=== PATIENT | female | born 1995 | race American Indian/Alaskan Native ===

== ENCOUNTER 2017-05-15 06:55 | Emergency (ER) | payer MEDICAID ==
[2017-05-15] MEDS ORDERED: REGLAN IV ONE (07:04)
[2017-05-15] MEDS ORDERED: DILAUDID IV ONE (07:04)
[2017-05-15] MEDS ORDERED: NACL 0.9% 1000 ML 1,000 ML IV ONE (07:05)
[2017-05-15 07:37] LABS: Basophils % (Auto) 0.2 % (0.0-1.8); Hematocrit 29.1 % (30.3-42.9); Mean Corpuscular HGB Conc 31 % (30-34); Platelet Count 408 K/mm3 (140-440); Red Blood Count 4.36 M/mm3 (3.65-5.03); Red Cell Distribution Width 18.2 % (13.2-15.2); White Blood Count 12.5 K/mm3 (4.5-11.0)
[2017-05-15 07:56] LABS: Mean Corpuscular Hemoglobin 21 pg (28-32); Mean Corpuscular Volume 67 fl (79-97)
[2017-05-15 08:33] LABS: Alanine Aminotransferase 14 units/L (7-56); Albumin 4.5 g/dL (3.9-5); Albumin/Globulin Ratio 1.3 %; Alkaline Phosphatase 54 units/L (35-129); Anion Gap 21 mmol/L; BUN/Creatinine Ratio 22; Blood Urea Nitrogen 11 mg/dL (7-17); Calcium 8.7 mg/dL (8.4-10.2); Carbon Dioxide 22 mmol/L (22-30); Chloride 101.2 mmol/L (98-107); Glucose 105 mg/dL (65-100); Sodium 140 mmol/L (137-145)
[2017-05-15 08:42] LABS: Bilirubin,Direct < 0.2 mg/dL (0-0.2); Bilirubin,Indirect 0.1 mg/dL
--- NOTE | 2017-05-15 08:49 | Emergency Department Report ---
ED Abdominal Pain HPI - General Chief Complaint: Abdominal Pain Stated Complaint: ABD PAIN Source: patient Mode of arrival: Stretcher Limitations: No Limitations - History of Present Illness Initial Comments: Patient describes some crampy suprapubic discomfort which is now resolved that medication. She also emesis without signs of GI bleeding. This is also resolved with medication as well. She was unaware of her . She is now 3 para 2 AB 0. She's had no prior surgery. 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 MD Complaint: abdominal pain -: Gradual, hour(s) Location: suprapubic Radiation: none Migration to: no migration Severity: moderate Quality: cramping Consistency: constant, now resolved Improves With: nothing Worsens With: nothing Associated Symptoms: nausea, vomiting - Related Data Home Medications Medication Instructions Recorded Confirmed Last Taken Bismuth Subsalicylate 262 mg PO QID PRN 11/23/14 11/23/14 1 Day Ago [Pepto-Bismol] ~11/22/14 Calcium Carbonate [Tums] 1,000 mg PO BID 11/23/14 11/23/14 1 Day Ago ~11/22/14 Previous Rx's Medication Instructions Recorded Last Taken Type Ondansetron [Zofran Odt] 8 mg PO Q8HR PRN #20 tab.rapdis 11/13/14 1 Day Ago Rx ~11/22/14 Promethazine [Phenergan TAB] 25 mg PO Q6H PRN #20 tablet 11/13/14 1 Day Ago Rx ~11/22/14 Ondansetron [Zofran Odt] 4 mg PO Q6H #7 tab.rapdis 05/15/17 Unknown Rx Allergies Allergy/AdvReac Type Severity Reaction Status Date / Time latex Allergy Rash Verified 11/23/14 13:50 ED Review of Systems ROS: Stated complaint: ABD PAIN Other details as noted in HPI Constitutional: denies: chills, fever Eyes: denies: eye pain, eye discharge, vision change ENT: denies: ear pain, throat pain Respiratory: denies: cough, shortness of breath, wheezing Cardiovascular: denies: chest pain, palpitations Endocrine: no symptoms reported Gastrointestinal: abdominal pain, nausea, vomiting. denies: diarrhea Genitourinary: other (no vaginal bleeding). denies: urgency, dysuria, discharge Musculoskeletal: denies: back pain, joint swelling, arthralgia Skin: denies: rash, lesions Neurological: denies: headache, weakness, paresthesias Psychiatric: denies: anxiety, depression Hematological/Lymphatic: denies: easy bleeding, easy bruising ED Past Medical Hx - Past Medical History Previous Medical History?: Yes Hx Arthritis: Yes Additional medical history: SCOLIOSIS - Surgical History Past Surgical History?: No - Social History Smoking Status: Current Every Day Smoker Substance Use Type: None - Medications Home Medications: Home Medications Medication Instructions Recorded Confirmed Last Taken Type Ondansetron [Zofran Odt] 8 mg PO Q8HR PRN #20 tab.rapdis 11/13/14 11/23/14 1 Day Ago Rx ~11/22/14 Promethazine [Phenergan TAB] 25 mg PO Q6H PRN #20 tablet 11/13/14 11/23/14 1 Day Ago Rx ~11/22/14 Bismuth Subsalicylate 262 mg PO QID PRN 11/23/14 11/23/14 1 Day Ago History [Pepto-Bismol] ~11/22/14 Calcium Carbonate [Tums] 1,000 mg PO BID 11/23/14 11/23/14 1 Day Ago History ~11/22/14 Ondansetron [Zofran Odt] 4 mg PO Q6H #7 tab.rapdis 05/15/17 Unknown Rx ED Physical Exam - General Limitations: No Limitations General appearance: alert, in no apparent distress - Head Head exam: Present: atraumatic, normocephalic - Eye Eye exam: Present: normal appearance. Absent: scleral icterus - ENT ENT exam: Present: mucous membranes moist - Neck Neck exam: Present: normal inspection - Respiratory Respiratory exam: Present: normal lung sounds bilaterally. Absent: respiratory distress - Cardiovascular Cardiovascular Exam: Present: regular rate, normal rhythm. Absent: systolic murmur, diastolic murmur, rubs, gallop - GI/Abdominal GI/Abdominal exam: Present: soft, normal bowel sounds. Absent: distended, tenderness, guarding, rebound, rigid - Extremities Exam Extremities exam: Present: normal inspection - Back Exam Back exam: Present: normal inspection - Neurological Exam Neurological exam: Present: alert, oriented X3, CN II-XII intact. Absent: motor sensory deficit - Psychiatric Psychiatric exam: Present: normal affect, normal mood - Skin Skin exam: Present: warm, dry, intact, normal color. Absent: rash ED Course Vital Signs 05/15/17 05/15/17 05/15/17 06:47 06:56 07:00 Temperature 98.2 F Pulse Rate 82 Respiratory 16 Rate Blood Pressure 136/72 136/72 136/72 Blood Pressure 136/72 [Left] O2 Sat by Pulse 98 99 Oximetry 05/15/17 07:30 Temperature Pulse Rate Respiratory Rate Blood Pressure 142/78 Blood Pressure [Left] O2 Sat by Pulse 95 Oximetry - Reevaluation(s) Reevaluation #1: Patient's symptoms have now resolved. She is appropriate for outpatient referral and management. She will be started on vitamins and iron. She will be referred to OB. 05/15/17 11:02 ED Medical Decision Making - Lab Data Result diagrams: 05/15/17 07:04 05/15/17 07:03 Laboratory Results - last 24 hr 05/15/17 05/15/17 05/15/17 07:03 07:04 07:04 WBC 12.5 H RBC 4.36 Hgb 9.0 L Hct 29.1 L MCV 67 L MCH 21 L MCHC 31 RDW 18.2 H Plt Count 408 Lymph % (Auto) 12.5 L [place] % (Auto) 3.7 Eos % (Auto) 1.0 Baso % (Auto) 0.2 Lymph # 1.6 [place] # 0.5 Eos # 0.1 Baso # 0.0 Seg Neutrophils % 82.6 H Seg Neutrophils # 10.3 H Sodium 140 Potassium 4.0 Chloride 101.2 Carbon Dioxide 22 Anion Gap 21 BUN 11 Creatinine 0.5 L Estimated GFR > 60 BUN/Creatinine Ratio 22 Glucose 105 H Calcium 8.7 Total Bilirubin 0.30 Direct Bilirubin < 0.2 Indirect Bilirubin 0.1 AST 21 ALT 14 Alkaline Phosphatase 54 Total Protein 8.0 Albumin 4.5 Albumin/Globulin Ratio 1.3 Lipase 22 HCG, Qual 05/15/17 07:04 WBC RBC Hgb Hct MCV MCH MCHC RDW Plt Count Lymph % (Auto) [place] % (Auto) Eos % (Auto) Baso % (Auto) Lymph # [place] # Eos # Baso # Seg Neutrophils % Seg Neutrophils # Sodium Potassium Chloride Carbon Dioxide Anion Gap BUN Creatinine Estimated GFR BUN/Creatinine Ratio Glucose Calcium Total Bilirubin Direct Bilirubin Indirect Bilirubin AST ALT Alkaline Phosphatase Total Protein Albumin Albumin/Globulin Ratio Lipase HCG, Qual Positive - Radiology Data Radiology results: report reviewed interpreted by me: 6 week without well delineated pole. Small subchorionic hemorrhage. Critical care attestation.: If time is entered above; I have spent that time in minutes in the direct care of this critically ill patient, excluding procedure time. ED Disposition Clinical Impression: Hyperemesis gravidarum, First trimester Subchorionic hemorrhage Qualifiers: Fetus number: fetus 6 or greater Trimester: first trimester Qualified Code(s): O41.8X19 - Other specified disorders of amniotic fluid and membranes, first trimester, other fetus; O46.8X1 - Other antepartum hemorrhage, first trimester; O46.8X1 - Other antepartum hemorrhage, first trimester Anemia Qualifiers: Anemia type: unspecified type Qualified Code(s): D64.9 - Anemia, unspecified Disposition: 09 OP ADMIT IP TO THIS HOSP Is pt being admited?: No Does the pt Need Aspirin: No Condition: Stable Instructions: Abdominal Pain (ED), Hyperemesis Gravidarum (ED) Additional Instructions: Follow-up with OB physician is essential. You'll need a repeat ultrasound to determine whether this is progressing properly. Rx medicine for nausea and vitamins with iron Prescriptions: Ondansetron [Zofran Odt] 4 mg PO Q6H #7 tab.[email or web address] Referrals: PRIMARY CARE, [Primary Care Provider] - 3-5 Days
[2017-05-15] MEDS ORDERED: ZOFRAN ONE (10:04)
[2017-05-15] MEDS ORDERED: ZOFRAN IV ONE (10:04)
--- NOTE | 2017-05-15 10:11 | Ultrasound Report ---
Pelvic and transvaginal sonography: History: First trimester pain abdomen. Findings: Uterus measures 10 x 5.4 x 7 cm. Single intrauterine gestational sac is identified. Sac diameter 14.2 mm corresponding to 6 weeks and 2 days of gestation. No pole identified. Small subchorionic bleed. Right ovary 2.5 x 2.5 x 2.7 cm. No mass. Left ovary not visualized. Impression: Single intrauterine gestation. No pole identified.
[2017-05-15 10:31] LABS: Urine Drugs of Abuse Note Disclamer
[2017-05-15 10:53] LABS: Bilirubin,Urine NEG (Negative); Blood,Urine NEG (Negative); Ketones,Urine 20 mg/dL (Negative); Leukocyte Esterase,Urine NEG (Negative); Mucus,Urine FEW /HPF; Nitrite,Urine NEG (Negative); Protein,Urine <15 mg/dL mg/dL (Negative); Urobilinogen,Urine < 2.0 mg/dL (<2.0)
[2017-05-15 11:35] VITALS: BP 136/76
== END 2017-05-15 11:35 | disposition admitted as inpatient to this hospital (09) ==
LOC: ED 06:55
DX: O21.0 Mild hyperemesis gravidarum (principal); O41.8X19 Other specified disorders of amniotic fluid and membranes, first trimester, other fetus; O46.8X1 Other antepartum hemorrhage, first trimester; O99.011 Anemia complicating pregnancy, first trimester; Z3A.01 Less than 8 weeks gestation of pregnancy; O99.331 Smoking (tobacco) complicating pregnancy, first trimester; F17.200 Nicotine dependence, unspecified, uncomplicated; Z91.040 Latex allergy status
CPT/HCPCS: 36415; 76801; 76817; 80048; 80074; 80307; 81001; 83690; 84702; 84703; 85025; 96361; 96374; 96375; 99284; J1170; J2405; J2765; J7030

== ENCOUNTER 2017-08-15 11:24 | Emergency (ER) | payer MEDICAID ==
--- NOTE | 2017-08-15 11:44 | Emergency Department Report ---
ED General Adult HPI - General Chief complaint: Abdominal Pain Stated complaint: NAUSEA/VOMITING/ABDOMINAL PAIN Time Seen by Provider: 08/15/17 11:42 Source: patient Mode of arrival: Ambulatory Limitations: No Limitations - History of Present Illness Initial comments: Patient is a 21-year-old female 18 weeks who presents for abdominal pain. Patient states pain started a couple days ago patient states that her pain is a 10 out of 10 located in her lower abdomen. Patient denies having vaginal bleeding or any Vaginal discharge patient has no nausea no vomiting. Patient states pain is an achy type of pain that radiates to her groin nothing makes it better or worse. She says it's progressively gotten worse the last couple days. - Related Data Home Medications Medication Instructions Recorded Confirmed Last Taken Atenolol 08/15/17 Unknown Previous Rx's Medication Instructions Recorded Last Taken Type Vit Calc,Iron,Folic 1 each PO QDAY #30 tablet 05/15/17 Unknown Rx [ Vitamins] Nitrofurantoin Monohyd/M-Cryst 100 mg PO BID #14 capsule 08/15/17 Unknown Rx [Macrobid 100 mg Capsule] Allergies Allergy/AdvReac Type Severity Reaction Status Date / Time latex Allergy Rash Verified 11/23/14 13:50 ED Review of Systems ROS: Stated complaint: NAUSEA/VOMITING/ABDOMINAL PAIN Other details as noted in HPI Constitutional: denies: chills, fever Eyes: denies: eye pain, eye discharge, vision change ENT: denies: ear pain, throat pain Respiratory: denies: cough, shortness of breath, wheezing Cardiovascular: denies: chest pain, palpitations Endocrine: no symptoms reported Gastrointestinal: abdominal pain. denies: nausea, diarrhea Genitourinary: denies: urgency, dysuria, discharge Musculoskeletal: denies: back pain, joint swelling, arthralgia Skin: denies: rash, lesions Neurological: denies: headache, weakness, paresthesias Psychiatric: denies: anxiety, depression Hematological/Lymphatic: denies: easy bleeding, easy bruising ED Past Medical Hx - Past Medical History Hx Arthritis: Yes Additional medical history: SCOLIOSIS - Social History Smoking Status: Current Every Day Smoker - Medications Home Medications: Home Medications Medication Instructions Recorded Confirmed Last Taken Type Vit Calc,Iron,Folic 1 each PO QDAY #30 tablet 05/15/17 08/15/17 Unknown Rx [ Vitamins] Atenolol 08/15/17 Unknown History Nitrofurantoin Monohyd/M-Cryst 100 mg PO BID #14 capsule 08/15/17 Unknown Rx [Macrobid 100 mg Capsule] ED Physical Exam - General Limitations: No Limitations General appearance: alert, in no apparent distress - Head Head exam: Present: atraumatic, normocephalic - Eye Eye exam: Present: normal appearance - ENT ENT exam: Present: mucous membranes moist - Neck Neck exam: Present: normal inspection - Respiratory Respiratory exam: Present: normal lung sounds bilaterally. Absent: respiratory distress - Cardiovascular Cardiovascular Exam: Present: regular rate, normal rhythm. Absent: systolic murmur, diastolic murmur, rubs, gallop - GI/Abdominal GI/Abdominal exam: Present: soft, normal bowel sounds - Extremities Exam Extremities exam: Present: normal inspection - Back Exam Back exam: Present: normal inspection - Neurological Exam Neurological exam: Present: alert, oriented X3 - Psychiatric Psychiatric exam: Present: normal affect, normal mood - Skin Skin exam: Present: warm, dry, intact, normal color. Absent: rash ED Course Vital Signs 08/15/17 11:30 Temperature 98.1 F Pulse Rate 69 Respiratory 16 Rate Blood Pressure 133/71 O2 Sat by Pulse 98 Oximetry - Reevaluation(s) Reevaluation #1: 08/15/17 16:20 Patient's pain is improved ED Medical Decision Making - Lab Data Result diagrams: 08/15/17 11:40 08/15/17 11:40 Lab Results 08/15/17 08/15/17 08/15/17 Range/Units 11:40 11:40 11:40 WBC 8.7 (4.5-11.0) K/mm3 RBC 4.24 (3.65-5.03) M/mm3 Hgb 8.6 L (10.1-14.3) gm/dl Hct 28.5 L (30.3-42.9) % MCV 67 L (79-97) fl MCH 20 L (28-32) pg MCHC 30 (30-34) % RDW 19.1 H (13.2-15.2) % Plt Count 388 (140-440) K/mm3 Lymph % (Auto) 23.4 (13.4-35.0) % Reynolds % (Auto) 5.3 (0.0-7.3) % Eos % (Auto) 1.6 (0.0-4.3) % Baso % (Auto) 1.1 (0.0-1.8) % Lymph # 2.0 (1.2-5.4) K/mm3 Reynolds # 0.5 (0.0-0.8) K/mm3 Eos # 0.1 (0.0-0.4) K/mm3 Baso # 0.1 (0.0-0.1) K/mm3 Seg Neutrophils % 68.5 (40.0-70.0) % Seg Neutrophils # 6.1 (1.8-7.7) K/mm3 Sodium 135 L (137-145) mmol/L Potassium 4.5 (3.6-5.0) mmol/L Chloride 98.6 (98-107) mmol/L Carbon Dioxide 21 L (22-30) mmol/L Anion Gap 20 mmol/L BUN 5 L (7-17) mg/dL Creatinine 0.4 L (0.7-1.2) mg/dL Estimated GFR > 60 ml/min BUN/Creatinine Ratio 13 % Glucose 68 (65-100) mg/dL Calcium 8.5 (8.4-10.2) mg/dL Total Bilirubin 0.30 (0.1-1.2) mg/dL AST 16 (5-40) units/L ALT 10 (7-56) units/L Alkaline Phosphatase 69 (35-129) units/L Total Protein 7.1 (6.3-8.2) g/dL Albumin 3.6 L (3.9-5) g/dL Albumin/Globulin Ratio 1.0 % HCG, Qual Positive (Negative) Urine Color (Yellow) Urine Turbidity (Clear) Urine pH (5.0-7.0) Ur Specific Susan (1.003-1.030) Urine Protein (Negative) mg/dL Urine Glucose (UA) (Negative) mg/dL Urine Ketones (Negative) mg/dL Urine Blood (Negative) Urine Nitrite (Negative) Urine Bilirubin (Negative) Urine Urobilinogen (<2.0) mg/dL Ur Leukocyte Esterase (Negative) Urine WBC (Auto) (0.0-6.0) /HPF Urine RBC (Auto) (0.0-6.0) /HPF U Epithel Cells (Auto) (0-13.0) /HPF Urine Bacteria (Auto) (Negative) /HPF Urine Mucus /HPF Urine Yeast (Budding) /HPF 08/15/17 Range/Units 14:20 WBC (4.5-11.0) K/mm3 RBC (3.65-5.03) M/mm3 Hgb (10.1-14.3) gm/dl Hct (30.3-42.9) % MCV (79-97) fl MCH (28-32) pg MCHC (30-34) % RDW (13.2-15.2) % Plt Count (140-440) K/mm3 Lymph % (Auto) (13.4-35.0) % Reynolds % (Auto) (0.0-7.3) % Eos % (Auto) (0.0-4.3) % Baso % (Auto) (0.0-1.8) % Lymph # (1.2-5.4) K/mm3 Reynolds # (0.0-0.8) K/mm3 Eos # (0.0-0.4) K/mm3 Baso # (0.0-0.1) K/mm3 Seg Neutrophils % (40.0-70.0) % Seg Neutrophils # (1.8-7.7) K/mm3 Sodium (137-145) mmol/L Potassium (3.6-5.0) mmol/L Chloride (98-107) mmol/L Carbon Dioxide (22-30) mmol/L Anion Gap mmol/L BUN (7-17) mg/dL Creatinine (0.7-1.2) mg/dL Estimated GFR ml/min BUN/Creatinine Ratio % Glucose (65-100) mg/dL Calcium (8.4-10.2) mg/dL Total Bilirubin (0.1-1.2) mg/dL AST (5-40) units/L ALT (7-56) units/L Alkaline Phosphatase (35-129) units/L Total Protein (6.3-8.2) g/dL Albumin (3.9-5) g/dL Albumin/Globulin Ratio % HCG, Qual (Negative) Urine Color Yellow (Yellow) Urine Turbidity Clear (Clear) Urine pH 6.0 (5.0-7.0) Ur Specific Susan 1.021 (1.003-1.030) Urine Protein 30 mg/dl (Negative) mg/dL Urine Glucose (UA) Neg (Negative) mg/dL Urine Ketones Tr (Negative) mg/dL Urine Blood Neg (Negative) Urine Nitrite Pos (Negative) Urine Bilirubin Neg (Negative) Urine Urobilinogen 4.0 (<2.0) mg/dL Ur Leukocyte Esterase Tr (Negative) Urine WBC (Auto) 17.0 H (0.0-6.0) /HPF Urine RBC (Auto) 2.0 (0.0-6.0) /HPF U Epithel Cells (Auto) 1.0 (0-13.0) /HPF Urine Bacteria (Auto) 4+ (Negative) /HPF Urine Mucus 3+ /HPF Urine Yeast (Budding) 1+ /HPF - Radiology Data Radiology results: report reviewed, image reviewed OB ultrasound: Shows intrauterine at 18 weeks - Medical Decision Making Chief medical diagnosis: Urinary tract infection Differential diagnosis: demise, placental abruption, ectopic I will get an ultrasound of belly CBC, CMP oral pain medicine and oral antiemetic medication I will also get urinalysis. Discussed outpatient patient agrees with plan. Critical care attestation.: If time is entered above; I have spent that time in minutes in the direct care of this critically ill patient, excluding procedure time. ED Disposition Clinical Impression: Abdominal pain affecting UTI (urinary tract infection) Qualifiers: Urinary tract infection type: acute cystitis Hematuria presence: without hematuria Qualified Code(s): N30.00 - Acute cystitis without hematuria Disposition: DC-01 TO HOME OR SELFCARE Is pt being admited?: No Does the pt Need Aspirin: No Condition: Stable Instructions: Abdominal Pain (ED), Urinary Tract Infection in Women (ED) Prescriptions: Nitrofurantoin Monohyd/M-Cryst [Macrobid 100 mg Capsule] 100 mg PO BID #14 capsule Referrals: NAE HERNANDEZ MD [Staff Physician] - 3-5 Days
[2017-08-15] MEDS ORDERED: TYLENOL PO ONE (11:45)
[2017-08-15] MEDS ORDERED: ROXICODONE PO ONE (12:34)
[2017-08-15] MEDS ORDERED: REGLAN PO ONE (12:34)
--- NOTE | 2017-08-15 12:59 | Ultrasound Report ---
OBSTETRICAL ULTRASOUND: 08/15/17 11:45:00 CLINICAL: with abdominal pain. COMPARISON:05/15/17 Gestation: Leiva Position: Transverse with head to maternal right. Amniotic Fluid: Normal Placenta: Anterior and no previa. Placental Grade: I Heart Rate: 143 BPM Cervical length: 3.1 cm (Normal > 3 cm) Fluid seen in the stomach and bladder. No anomalies identified. However, it is too early for a anatomical survey BPD: 4.2 cm = 18 w 5 d HC: 15.0 cm = 18 w 1 d AC: 13.0 cm = 18 w 4 d FL: 2.8 cm = 18 w 5 d HC/AC Ratio: 1.15 Cephalic Index: 78.8 Estimated Weight: 248 grams Ovaries were not identified. LMP: 04/06/17 IMPRESSION: Single living intrauterine fetus at 18 weeks, 5 days based on previous ultrasound. Appropriate growth. No explanation for pain. Clinical age = 18 w 5 d EDC: 01/11/18 US Gest. Age = 18 w 4 d EDC: 01/12/18
[2017-08-15 14:45] LABS: Bacteria,Urine 4+ /HPF (Negative); Bilirubin,Urine NEG (Negative); Blood,Urine NEG (Negative); Color,Urine Yellow (Yellow); Mucus,Urine 3+ /HPF
[2017-08-15 15:16] LABS: Basophils # (Auto) 0.1 K/mm3 (0.0-0.1); Eosinophils # (Auto) 0.1 K/mm3 (0.0-0.4); Eosinophils % (Auto) 1.6 % (0.0-4.3); Monocytes # (Auto) 0.5 K/mm3 (0.0-0.8); Monocytes % (Auto) 5.3 % (0.0-7.3)
[2017-08-15 15:22] LABS: Red Blood Count 4.24 M/mm3 (3.65-5.03)
[2017-08-15 15:23] LABS: Basophils % (Auto) 1.1 % (0.0-1.8); Hematocrit 28.5 % (30.3-42.9); Hemoglobin 8.6 gm/dl (10.1-14.3); Lymphocytes % (Auto) 23.4 % (13.4-35.0); Mean Corpuscular HGB Conc 30 % (30-34); Mean Corpuscular Hemoglobin 20 pg (28-32); Mean Corpuscular Volume 67 fl (79-97); Mean Platelet Volume 8.9 fl (6-12); Platelet Count 388 K/mm3 (140-440); Red Cell Distribution Width 19.1 % (13.2-15.2)
[2017-08-15 15:30] LABS: Alanine Aminotransferase 10 units/L (7-56); Albumin 3.6 g/dL (3.9-5); BUN/Creatinine Ratio 13; Blood Urea Nitrogen 5 mg/dL (7-17); Calcium 8.5 mg/dL (8.4-10.2); Hemolysis Index 0
[2017-08-15] MEDS ORDERED: MACROBID PO ONE (15:53)
[2017-08-15 16:35] VITALS: BP 122/66
== END 2017-08-15 16:38 | disposition home or self-care (01) ==
LOC: ED 11:24
DX: O23.42 Unspecified infection of urinary tract in pregnancy, second trimester (principal); O99.332 Smoking (tobacco) complicating pregnancy, second trimester; Z3A.18 18 weeks gestation of pregnancy
CPT/HCPCS: 36415; 76805; 80053; 81001; 84703; 85025

== ENCOUNTER 2017-08-17 08:41 | Observation (INO) | payer MEDICAID ==
[2017-08-17] MEDS ORDERED: LACTATED RINGERS 500 ML IV ONE (08:50)
[2017-08-17] MEDS ORDERED: ATIVAN ONE (09:32)
[2017-08-17] MEDS ORDERED: NORMOSOL-R PH 7.4 1,000 ML IV ONE (09:33)
[2017-08-17] MEDS ORDERED: TYLENOL PO PRN ×2 (09:47→23:25)
[2017-08-17] MEDS ORDERED: BENADRYL PO PRN (09:47)
[2017-08-17] MEDS ORDERED: MILK OF MAGNESIA PO PRN (09:47)
[2017-08-17] MEDS ORDERED: DEEP SEA NS PRN (09:47)
[2017-08-17] MEDS ORDERED: AMBIEN PO PRN (09:47)
[2017-08-17] MEDS ORDERED: SODIUM CHLORIDE FLUSH SYRINGE 10 ML IV PRN (09:47)
[2017-08-17] MEDS ORDERED: COLACE PO PRN ×2 (09:47→23:25)
[2017-08-17] MEDS ORDERED: NORMOSOL-R PH 7.4 1,000 ML IV SCH (10:00)
[2017-08-17] MEDS ORDERED: PRENATAL VITAMIN PO SCH (10:00)
[2017-08-17] MEDS ORDERED: KEPPRA 1,500 MG in D5W 100 ML IV NR (10:00)
--- NOTE | 2017-08-17 10:05 | History and Physical Report ---
History of Present Illness Date of examination: 08/17/17 Date of admission: 08/17/17 Chief complaint: abdominal pain and seizure disorder History of present illness: This is a 21 yo at 24+2 weeks with hx of seizure disorder diagnosed in [facility]. Recently moved here with no care. She was seen her for n and v on Wednesday and discharged home. i was contacted by nurse moe reporting seizure activity. She reports one full term and one as she has hx of chronic HTN Past History Past Medical History: seizure Family/Genetic History: none Social history: no significant social history, single. denies: smoking, alcohol abuse, prescription drug abuse - Obstetrical History Expected Date of Delivery: 01/12/18 Actual Gestation: 18 Week(s) 6 Day(s) : 3 Para: 2 Hx # Term Pregnancies: 0 Number of Pregnancies: 0 Spontaneous Abortions: 0 Induced : 0 Number of Living Children: 0 Medications and Allergies Allergies Allergy/AdvReac Type Severity Reaction Status Date / Time latex Allergy Rash Verified 11/23/14 13:50 Home Medications Medication Instructions Recorded Confirmed Last Taken Type Vit Calc,Iron,Folic 1 each PO QDAY #30 tablet 05/15/17 08/15/17 Unknown Rx [ Vitamins] Atenolol 08/15/17 Unknown History Nitrofurantoin Monohyd/M-Cryst 100 mg PO BID #14 capsule 08/15/17 Unknown Rx [Macrobid 100 mg Capsule] Active Meds: Active Medications Levetiracetam 1,500 mg/ (Dextrose) 115 mls @ 0 mls/hr IV ONCE NR Stop: 08/17/17 13:00 Lorazepam (Ativan) 2 mg IV ONCE ONE Stop: 08/17/17 09:47 Review of Systems All systems: negative Gastrointestinal: abdominal pain Neurological: seizures - Vital Signs Vital signs: Vital Signs Temp Pulse Resp BP Pulse Ox 98.4 F 78 16 137/88 98 08/17/17 09:08 08/17/17 09:08 08/17/17 09:08 08/17/17 09:08 08/17/17 09:08 Temp Pulse Resp BP Pulse Ox 98.4 F 80 16 139/91 100 08/17/17 09:08 08/17/17 09:55 08/17/17 09:08 08/17/17 09:54 08/17/17 09:55 - Physical Exam Breasts: Positive: deferred Cardiovascular: Regular rate, Normal S1 Lungs: Positive: Clear to auscultation, Normal air movement Abdomen: Positive: soft, normal bowel sounds. Negative: distention, tenderness , guarding Genitourinary (Female): Positive: normal external genitalia, normal perenium Extremities: Positive: normal Deep Tendon Reflex Grade: Normal +2 - Obstetrical FHR: auscultation normal Results Result Diagrams: 08/17/17 10:46 08/17/17 10:37 All other labs normal. Assessment and Plan A/P IUP 24+2 weeks hx of seizure d/o currently seizing ativan 2mg stat now and Keppra 1500 mg over 30 min hx of chronic HTN US for evaluation of complete ob CBC, CMP, PIH w/u Neuology consult MFM consult close monitor
[2017-08-17 10:09] LABS: Bacteria,Urine 2+ /HPF (Negative); Bilirubin,Urine NEG (Negative); Blood,Urine NEG (Negative); Color,Urine Yellow (Yellow); Mucus,Urine 3+ /HPF; Urobilinogen,Urine < 2.0 mg/dL (<2.0)
[2017-08-17 10:14] LABS: Amphetamine Screen,Urine PRESUMPTIVE NEGATIVE; Benzodiazepines Screen,Urine PRESUMPTIVE NEGATIVE; Cocaine Screen,Urine PRESUMPTIVE NEGATIVE; Methadone Screen,Urine PRESUMPTIVE NEGATIVE; Opiate Screen,Urine PRESUMPTIVE NEGATIVE
[2017-08-17 10:28] LABS: Cannabinoid Screen,Urine PRESUMPTIVE POSITIVE
[2017-08-17] MEDS ORDERED: ATIVAN IV ONE (10:30)
[2017-08-17 11:26] LABS: Basophils % (Auto) 0.2 % (0.0-1.8); Eosinophils % (Auto) 0.1 % (0.0-4.3); Hematocrit 29.3 % (30.3-42.9); Hemoglobin 8.9 gm/dl (10.1-14.3); Lymphocytes # (Auto) 1.3 K/mm3 (1.2-5.4); Lymphocytes % (Auto) 9.8 % (13.4-35.0); Mean Corpuscular HGB Conc 30 % (30-34); Monocytes # (Auto) 0.7 K/mm3 (0.0-0.8); Monocytes % (Auto) 5.1 % (0.0-7.3); Platelet Count 419 K/mm3 (140-440); Red Blood Count 4.41 M/mm3 (3.65-5.03); Red Cell Distribution Width 19.1 % (13.2-15.2)
[2017-08-17 11:27] LABS: Mean Corpuscular Hemoglobin 20 pg (28-32); Mean Corpuscular Volume 66 fl (79-97)
[2017-08-17 11:33] LABS: Alanine Aminotransferase 15 units/L (7-56); Albumin 3.8 g/dL (3.9-5); BUN/Creatinine Ratio 20; Blood Urea Nitrogen 8 mg/dL (7-17); Calcium 9.1 mg/dL (8.4-10.2); Hemolysis Index 14
[2017-08-17] MEDS ORDERED: XYLOCAINE 1% MPF 5 mL INFILTRATI ONE (13:03)
[2017-08-17] MEDS ORDERED: ROCEPHIN IM SCH (13:15)
--- NOTE | 2017-08-17 14:13 | Ultrasound Report ---
ULTRASOUND OB LIMITED History: well being Technique: Transabdominal ultrasound with Doppler interrogation. Gestation: Single Position: Cephalic Heart Rate: 156 BPM
[2017-08-17 14:56] LABS: Rubella IgG Antibody Immune (Immune)
[2017-08-17 15:25] LABS: Hepatitis C Virus Antibody Non-Reactive (NonReactive)
[2017-08-17] MEDS ORDERED: STADOL IV PRN (15:43)
[2017-08-17] MEDS: ZOFRAN IV PRN (16:30)
[2017-08-17] MEDS ORDERED: NORMODYNE IV ONE (18:00)
[2017-08-17] MEDS: MACROBID PO SCH (22:22)
[2017-08-17] MEDS: KEPPRA 500 MG in NACL 0.9% 100 ML IV SCH (22:23)
--- NOTE | 2017-08-17 22:28 | Consultation ---
HISTORY OF PRESENT ILLNESS: This is a 22-year-old black female who presents, she is 3, para 2, with the last being 6 months ago, who recently moved here from the [place] area, has 2 living children in good health. Several months ago, she began having generalized seizures, which she states are related to her worry. Prior to being coming here from [place], she was supposed to be started on anticonvulsant medication, but this was not initiated. Since being here, she has had increased number of generalized seizures. She denies head trauma, neurological problems or any other causation for these. She denies alcohol or drug use. ALLERGIES: She has no known allergies. PHYSICAL EXAMINATION: VITAL SIGNS: She has nausea at the present time, rushing at times. She has full ocular movements. 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 Motor tone symmetrical. No seizure activity observed. Cranial nerves 2-12 are intact. Motor tone symmetrical. Sensory examination benign. IMPRESSION: Generalized seizure disorder with superimposed issue with anxiety disorder. Recommend starting the patient on anticonvulsants at 24 weeks of . Probably, the best anticonvulsant would be Keppra 500 mg by mouth two times a day and I spoke with the nurse on the floor. At this point, she be cleared to be on a diet, we would check an EEG. JOB# [id number] JOHN/YANET
[2017-08-17] MEDS: NORMODYNE PO SCH (22:37)
[2017-08-17] MEDS ORDERED: MYLICON PO PRN (23:25)
[2017-08-17] MEDS ORDERED: ALUM-MAG HYDROX-SIMETH 200-200-20MG/5ML PO PRN (23:25)
--- NOTE | 2017-08-18 08:14 | Consultation ---
REQUESTING PHYSICIAN: Deja Cole MD REASON FOR CONSULTATION: Medical management of a 21-year-old lady with seizure attack and history of seizure and also urinary tract infection. HISTORY OF PRESENT ILLNESS: The patient is a 21-year-old female who is about 18 weeks who has history of seizure disorder and had a seizure attack and was transferred from obstetrical department to medical department for treatment of seizure attack. The patient said that she takes Keppra as needed for her seizures and had seizure attack and was also found to have urinary tract infection. There is no history of fever. There is no history of shortness of breath or chest pain. There was a consult to see the patient for seizure attack and the patient will receive IV Keppra. PAST MEDICAL HISTORY: Only pertinent for seizure disorder. PAST SURGICAL HISTORY: Not well known. FAMILY HISTORY: Noncontributory. SOCIAL HISTORY: The patient does not smoke, does not drink alcohol and does not use illicit drugs. MEDICATIONS: The patient is on vitamin one tablet by mouth daily; atenolol, dose and frequency unknown and nitrofurantoin 100 mg by mouth twice daily. ALLERGIES: THE PATIENT IS ALLERGIC TO LATEX. REVIEW OF SYSTEMS: CONSTITUTIONAL: There is no fever, chills, or diaphoresis. HEENT: There is no headache or sore throat. CARDIOVASCULAR: There is no chest pain or orthopnea. RESPIRATORY: There is no shortness of breath or cough. GASTROINTESTINAL SYSTEM: There is no nausea, no vomiting, no abdominal pain, diarrhea or constipation. NEUROLOGICAL: Seizure attack noted. Change in mental status noted. There is no numbness. MUSCULOSKELETAL SYSTEM: There is no joint pain or swelling. DERMATOLOGICAL SYSTEM: There is no skin rash or itching. GENITOURINARY SYSTEM: There is no dysuria, hematuria or flank pain. Rest of system review is normal. PHYSICAL EXAMINATION: GENERAL: At the time of exam, the patient was found to be alert and oriented x 3 and not in acute distress. VITAL SIGNS: Temperature of 97.9, pulse of 64, respiration 18, blood pressure 102/60, O2 sat of 98% on room air. HEENT: Showed pupils to be equal, round, reactive to light and accommodation. Extraocular muscles are intact. NECK: Supple with no JVD or carotid bruit. CARDIOVASCULAR: Showed normal first and second heart sounds, no gallops or murmur. RESPIRATORY SYSTEM: Show good air entry on both sides of the lungs with no abnormal breath sounds. GASTROINTESTINAL SYSTEM: Show abdomen to be full, soft, nontender with no organomegaly or rigidity. NEUROLOGICAL: No deficits. MUSCULOSKELETAL SYSTEM: Show no joint swelling or tenderness. DERMATOLOGICAL SYSTEM: Show no skin rash. GENITOURINARY: Showing no costovertebral angle tenderness. PERTINENT LABORATORY DATA AND IMAGING STUDIES: The patient had CBC done on 08/17/2017 that shows elevated white count of 13,500 with low hemoglobin of 8.9 and low hematocrit of 29.3. CBC differential showed elevated segmented neutrophil of 84.8%. The patient's urinalysis showed trace leukocyte esterase with elevated urine wbc's of 19 and 42 urine nitrites with 2+ bacteria. Urine drug screen was unremarkable. The patient's serologies show nonreactive hepatitis B surface antigen and nonreactive hepatitis C antibody and nonreactive HIV infection and positive immune reaction to rubella, IgG antibody. IMAGING: The patient had obstetrical ultrasound done that concerned single gestation. DIAGNOSES: 1. Seizure attack in : 2. Urinary tract infection in . PLAN: The patient will continue Keppra 500 mg twice daily as already ordered. Neurology is already consulted by the employee wellness/fitness coordinator. The patient will also be on IV ceftriaxone 1 gram daily for treatment of UTI and we will continue Macrodantin, as shown in the patient's home medication and if satisfied by the employee wellness/fitness coordinator and the hospitalist group will follow. JOB# [id number] OCN/NTS
--- NOTE | 2017-08-18 08:25 | Progress Note ---
Assessment and Plan A: IUP at 19w1d (TAMARA 01/11/18) Seizure Disorder on Keppra Chronic HTN on Labetalol 200mg BID UTI on Ceftriaxone 1 juan daily P: Continue supportive care Await urine culture sensitivities heart tones daily Subjective - Subjective Date of service: 08/18/17 Principal diagnosis: IUP at 19 wks, Seizure Disorder, UTI, Chronic HTN, No Care Interval history: Pt reports one seizure prior to transfer yesterday, but no seizures overnight. She would like to eat regular food. She reports white vaginal discharge, but no odor, itching or vaginal bleeding. Her nausea is improving. She still reports some lower abdominal pain. Patient reports: no new complaints, no loss of fluid, no vaginal bleeding, no contractions Objective - Vital Signs Vital Signs: Vital Signs - 12hr 08/17/17 08/17/17 08/17/17 20:46 21:49 22:33 Temperature Pulse Rate 77 80 68 Respiratory Rate Blood Pressure 108/53 118/63 117/58 Blood Pressure [Left] O2 Sat by Pulse Oximetry 08/17/17 08/17/17 08/18/17 22:37 23:50 08:13 Temperature 97.9 F 98.6 F Pulse Rate 68 64 78 Respiratory 18 18 Rate Blood Pressure 117/58 109/46 Blood Pressure 102/50 [Left] O2 Sat by Pulse 98 98 Oximetry - Exam Breasts: deferred Cardiovascular: Regular rate Lungs: Clear to auscultation Abdomen: Present: soft (gravid ) Uterus: Present: normal (gravid ) Extremities: normal - Labs Labs: Abnormal Labs 08/17/17 08/17/17 08/17/17 08:25 10:37 10:46 WBC 13.5 H Hgb 8.9 L Hct 29.3 L MCV 66 L MCH 20 L RDW 19.1 H Lymph % (Auto) 9.8 L Seg Neutrophils % 84.8 H Seg Neutrophils # 11.5 H Creatinine 0.4 L Glucose 121 H Albumin 3.8 L Urine WBC (Auto) 19.0 H Laboratory Results - last 24 hr 08/17/17 08/17/17 08/17/17 08:25 08:25 10:37 WBC RBC Hgb Hct MCV MCH MCHC RDW Plt Count Lymph % (Auto) [place] % (Auto) Eos % (Auto) Baso % (Auto) Lymph # [place] # Eos # Baso # Seg Neutrophils % Seg Neutrophils # Sodium 139 Potassium 3.8 Chloride 102.4 Carbon Dioxide 24 Anion Gap 16 BUN 8 Creatinine 0.4 L Estimated GFR > 60 BUN/Creatinine Ratio 20 Glucose 121 H Calcium 9.1 Total Bilirubin 0.30 AST 19 ALT 15 Alkaline Phosphatase 68 Total Protein 7.6 Albumin 3.8 L Albumin/Globulin Ratio 1.0 Urine Color Yellow Urine Turbidity Clear Urine pH 6.0 Ur Specific [place] 1.021 Urine Protein 30 mg/dl Urine Glucose (UA) 50 Urine Ketones 80 Urine Blood Neg Urine Nitrite Pos Urine Bilirubin Neg Urine Urobilinogen < 2.0 Ur Leukocyte Esterase Tr Urine WBC (Auto) 19.0 H Urine RBC (Auto) 10.0 U Epithel Cells (Auto) 1.0 Urine Bacteria (Auto) 2+ Urine Mucus 3+ Urine Opiates Screen Presumptive negative Urine Methadone Screen Presumptive negative Ur Barbiturates Screen Presumptive negative Ur Phencyclidine Scrn Presumptive negative Ur Amphetamines Screen Presumptive negative U Benzodiazepines Scrn Presumptive negative Urine Cocaine Screen Presumptive negative U Marijuana (THC) Screen Presumptive positive Drugs of Abuse Note Disclamer Hep Bs Antigen Hepatitis C Antibody HIV 1&2 Antibody Rapid HIV P24 Antigen Rubella IgG Antibody Blood Type Antibody Screen 08/17/17 08/17/17 08/17/17 10:46 14:00 14:06 WBC 13.5 H RBC 4.41 Hgb 8.9 L Hct 29.3 L MCV 66 L MCH 20 L MCHC 30 RDW 19.1 H Plt Count 419 Lymph % (Auto) 9.8 L [place] % (Auto) 5.1 Eos % (Auto) 0.1 Baso % (Auto) 0.2 Lymph # 1.3 [place] # 0.7 Eos # 0.0 Baso # 0.0 Seg Neutrophils % 84.8 H Seg Neutrophils # 11.5 H Sodium Potassium Chloride Carbon Dioxide Anion Gap BUN Creatinine Estimated GFR BUN/Creatinine Ratio Glucose Calcium Total Bilirubin AST ALT Alkaline Phosphatase Total Protein Albumin Albumin/Globulin Ratio Urine Color Urine Turbidity Urine pH Ur Specific [place] Urine Protein Urine Glucose (UA) Urine Ketones Urine Blood Urine Nitrite Urine Bilirubin Urine Urobilinogen Ur Leukocyte Esterase Urine WBC (Auto) Urine RBC (Auto) U Epithel Cells (Auto) Urine Bacteria (Auto) Urine Mucus Urine Opiates Screen Urine Methadone Screen Ur Barbiturates Screen Ur Phencyclidine Scrn Ur Amphetamines Screen U Benzodiazepines Scrn Urine Cocaine Screen U Marijuana (THC) Screen Drugs of Abuse Note Hep Bs Antigen Hepatitis C Antibody Non-reactive HIV 1&2 Antibody Rapid HIV P24 Antigen Rubella IgG Antibody Immune Blood Type A POSITIVE Antibody Screen Negative 08/17/17 08/17/17 14:06 14:06 WBC RBC Hgb Hct MCV MCH MCHC RDW Plt Count Lymph % (Auto) [place] % (Auto) Eos % (Auto) Baso % (Auto) Lymph # [place] # Eos # Baso # Seg Neutrophils % Seg Neutrophils # Sodium Potassium Chloride Carbon Dioxide Anion Gap BUN Creatinine Estimated GFR BUN/Creatinine Ratio Glucose Calcium Total Bilirubin AST ALT Alkaline Phosphatase Total Protein Albumin Albumin/Globulin Ratio Urine Color Urine Turbidity Urine pH Ur Specific [place] Urine Protein Urine Glucose (UA) Urine Ketones Urine Blood Urine Nitrite Urine Bilirubin Urine Urobilinogen Ur Leukocyte Esterase Urine WBC (Auto) Urine RBC (Auto) U Epithel Cells (Auto) Urine Bacteria (Auto) Urine Mucus Urine Opiates Screen Urine Methadone Screen Ur Barbiturates Screen Ur Phencyclidine Scrn Ur Amphetamines Screen U Benzodiazepines Scrn Urine Cocaine Screen U Marijuana (THC) Screen Drugs of Abuse Note Hep Bs Antigen Non-reactive Hepatitis C Antibody HIV 1&2 Antibody Rapid Non react HIV P24 Antigen Non react Rubella IgG Antibody Blood Type Antibody Screen
[2017-08-18] MEDS: NORMODYNE PO SCH (09:12)
[2017-08-18] MEDS: KEPPRA 500 MG in NACL 0.9% 100 ML IV SCH ×2 (09:21)
[2017-08-18] MEDS ORDERED: CEFTRIAXONE IV SCH (10:00)
[2017-08-18] MEDS ORDERED: ROCEPHIN/NS 1 GM/50 ML 1 GM/50 ML BAG IV SCH (10:00)
[2017-08-18] MEDS ORDERED: NACL 0.9% IV SCH (10:00)
[2017-08-18] MEDS ORDERED: PRENATAL VITAMIN PO SCH (10:00)
[2017-08-18] MEDS: MACROBID PO SCH ×2 (10:13)
[2017-08-18] MEDS: ZOFRAN IV PRN (13:21)
[2017-08-18 16:04] VITALS: BP 114/54
--- NOTE | 2017-08-18 18:45 | Progress Note ---
Assessment and Plan Assessment and plan: Acute Cystitis Leukocytosis 2/2 UTI Seizure disorder Plan continue IV Ceftrixone monitor pt closely thanks for the opportunity to participate in pt's care seizure precautions at all times No driving or operation of heavy machinery for 6 months of being seizure free. 25 mins History Interval history: Pt seen and exam, c/o mild nausea, no vomiting, No other problems. Per pt, reportedly diagnosed with seizures few months ago, but did not wait for her results and medications. Hospitalist Physical - Constitutional Vitals: Temp Pulse Resp BP Pulse Ox 98.7 F 83 18 114/54 100 08/18/17 15:20 08/18/17 15:20 08/18/17 15:20 08/18/17 15:20 08/18/17 15:20 General appearance: Present: no acute distress, well-nourished - EENT Eyes: Present: PERRL, EOM intact ENT: hearing intact, clear oral mucosa - Neck Neck: Present: supple, normal ROM - Respiratory Respiratory effort: normal Respiratory: bilateral: CTA - Cardiovascular Rhythm: regular Heart Sounds: Present: S1 & S2 - Extremities Extremities: no ischemia, pulses intact, No edema Peripheral Pulses: within normal limits - Abdominal General gastrointestinal: soft, non-tender, normal bowel sounds - Integumentary Integumentary: Present: clear, warm, dry - Psychiatric Psychiatric: appropriate mood/affect, intact judgment & insight, memory intact - Neurologic Neurologic: CNII-XII intact, moves all extremities - Allied Health Allied health notes reviewed: nursing, social work Results - Labs CBC & Chem 7: 08/17/17 10:46 08/17/17 10:37 Labs: Laboratory Last Values WBC 13.5 K/mm3 (4.5-11.0) H 08/17/17 10:46 RBC 4.41 M/mm3 (3.65-5.03) 08/17/17 10:46 Hgb 8.9 gm/dl (10.1-14.3) L 08/17/17 10:46 Hct 29.3 % (30.3-42.9) L 08/17/17 10:46 MCV 66 fl (79-97) L 08/17/17 10:46 MCH 20 pg (28-32) L 08/17/17 10:46 MCHC 30 % (30-34) 08/17/17 10:46 RDW 19.1 % (13.2-15.2) H 08/17/17 10:46 Plt Count 419 K/mm3 (140-440) 08/17/17 10:46 Lymph % (Auto) 9.8 % (13.4-35.0) L 08/17/17 10:46 [place] % (Auto) 5.1 % (0.0-7.3) 08/17/17 10:46 Eos % (Auto) 0.1 % (0.0-4.3) 08/17/17 10:46 Baso % (Auto) 0.2 % (0.0-1.8) 08/17/17 10:46 Lymph # 1.3 K/mm3 (1.2-5.4) 08/17/17 10:46 [place] # 0.7 K/mm3 (0.0-0.8) 08/17/17 10:46 Eos # 0.0 K/mm3 (0.0-0.4) 08/17/17 10:46 Baso # 0.0 K/mm3 (0.0-0.1) 08/17/17 10:46 Seg Neutrophils % 84.8 % (40.0-70.0) H 08/17/17 10:46 Seg Neutrophils # 11.5 K/mm3 (1.8-7.7) H 08/17/17 10:46 Sodium 139 mmol/L (137-145) 08/17/17 10:37 Potassium 3.8 mmol/L (3.6-5.0) 08/17/17 10:37 Chloride 102.4 mmol/L (98-107) 08/17/17 10:37 Carbon Dioxide 24 mmol/L (22-30) 08/17/17 10:37 Anion Gap 16 mmol/L 08/17/17 10:37 BUN 8 mg/dL (7-17) 08/17/17 10:37 Creatinine 0.4 mg/dL (0.7-1.2) L 08/17/17 10:37 Estimated GFR > 60 ml/min 08/17/17 10:37 BUN/Creatinine Ratio 20 % 08/17/17 10:37 Glucose 121 mg/dL (65-100) H 08/17/17 10:37 Calcium 9.1 mg/dL (8.4-10.2) 08/17/17 10:37 Total Bilirubin 0.30 mg/dL (0.1-1.2) 08/17/17 10:37 AST 19 units/L (5-40) 08/17/17 10:37 ALT 15 units/L (7-56) 08/17/17 10:37 Alkaline Phosphatase 68 units/L (35-129) 08/17/17 10:37 Total Protein 7.6 g/dL (6.3-8.2) 08/17/17 10:37 Albumin 3.8 g/dL (3.9-5) L 08/17/17 10:37 Albumin/Globulin Ratio 1.0 % 08/17/17 10:37 Urine Color Yellow (Yellow) 08/17/17 08:25 Urine Turbidity Clear (Clear) 08/17/17 08:25 Urine pH 6.0 (5.0-7.0) 08/17/17 08:25 Ur Specific [place] 1.021 (1.003-1.030) 08/17/17 08:25 Urine Protein 30 mg/dl mg/dL (Negative) 08/17/17 08:25 Urine Glucose (UA) 50 mg/dL (Negative) 08/17/17 08:25 Urine Ketones 80 mg/dL (Negative) 08/17/17 08:25 Urine Blood Neg (Negative) 08/17/17 08:25 Urine Nitrite Pos (Negative) 08/17/17 08:25 Urine Bilirubin Neg (Negative) 08/17/17 08:25 Urine Urobilinogen < 2.0 mg/dL (<2.0) 08/17/17 08:25 Ur Leukocyte Esterase Tr (Negative) 08/17/17 08:25 Urine WBC (Auto) 19.0 /HPF (0.0-6.0) H 08/17/17 08:25 Urine RBC (Auto) 10.0 /HPF (0.0-6.0) 08/17/17 08:25 U Epithel Cells (Auto) 1.0 /HPF (0-13.0) 08/17/17 08:25 Urine Bacteria (Auto) 2+ /HPF (Negative) 08/17/17 08:25 Urine Mucus 3+ /HPF 08/17/17 08:25 Urine Total Volume 550 08/17/17 15:45 Urine Total Protein 29 mg/dL (5-11.8) H 08/17/17 15:45 Urine Opiates Screen Presumptive negative 08/17/17 08:25 Urine Methadone Screen Presumptive negative 08/17/17 08:25 Ur Barbiturates Screen Presumptive negative 08/17/17 08:25 Ur Phencyclidine Scrn Presumptive negative 08/17/17 08:25 Ur Amphetamines Screen Presumptive negative 08/17/17 08:25 U Benzodiazepines Scrn Presumptive negative 08/17/17 08:25 Urine Cocaine Screen Presumptive negative 08/17/17 08:25 U Marijuana (THC) Screen Presumptive positive 08/17/17 08:25 Drugs of Abuse Note Disclamer 08/17/17 08:25 RPR Nonreactive (Nonreactive) 08/17/17 14:06 Hep Bs Antigen Non-reactive (Negative) 08/17/17 14:06 Hepatitis C Antibody Non-reactive (NonReactive) 08/17/17 14:06 HIV 1&2 Antibody Rapid Non react (Non React) 08/17/17 14:06 HIV P24 Antigen Non react (Non React) 08/17/17 14:06 Rubella IgG Antibody Immune (Immune) 08/17/17 14:06 Blood Type A POSITIVE 08/17/17 14:00 Antibody Screen Negative 08/17/17 14:00
[2017-08-18] MEDS ORDERED: KEPPRA PO SCH (22:00)
== END 2017-08-18 18:30 | disposition left against medical advice (07) ==
LOC: TRG 08:41 → LD 10:16 → 3A 23:14
PROVIDERS: ADMIT Obstetrics & Gynecology; ATTEND Obstetrics & Gynecology
DX: O99.352 Diseases of the nervous system complicating pregnancy, second trimester (principal); G40.909 Epilepsy, unspecified, not intractable, without status epilepticus; O10.012 Pre-existing essential hypertension complicating pregnancy, second trimester; O23.42 Unspecified infection of urinary tract in pregnancy, second trimester; O23.12 Infections of bladder in pregnancy, second trimester; O99.112 Other diseases of the blood and blood-forming organs and certain disorders involving the immune mechanism complicating pregnancy, second trimester; D72.829 Elevated white blood cell count, unspecified; O26.892 Other specified pregnancy related conditions, second trimester; R10.9 Unspecified abdominal pain; Z3A.19 19 weeks gestation of pregnancy
CPT/HCPCS: 36415; 76815; 80053; 80307; 81001; 84156; 85025; 86592; 86706; 86762; 86803; 86850; 86900; 86901; 87076; 87086; 87186; 87806; 96361; 96372; 96374; 96375; 96376; G0378; J0595; J0696; J1953; J2060; J2405; J7050

== ENCOUNTER 2017-09-20 11:37 | Outpatient (CLI) | payer MEDICAID ==
[2017-09-20] MEDS ORDERED: LACTATED RINGERS 500 ML IV ONE (11:47)
[2017-09-20] MEDS: BRETHINE IVP NR ×2 (12:41→13:07)
[2017-09-20 12:49] LABS: Bilirubin,Urine NEG (Negative); Blood,Urine NEG (Negative); Color,Urine Yellow (Yellow); Mucus,Urine 2+ /HPF
== END 2017-09-20 13:48 | disposition home or self-care (01) ==
LOC: TRG 11:37
PROVIDERS: ATTEND Obstetrics & Gynecology
DX: O47.02 False labor before 37 completed weeks of gestation, second trimester (principal); Z3A.24 24 weeks gestation of pregnancy
CPT/HCPCS: 59025; 81001; 96360; 96372; J3105; J7120

== ENCOUNTER 2017-09-20 21:47 | Observation (INO) | payer OTHER ==
[2017-09-20] MEDS ORDERED: LACTATED RINGERS 500 ML IV ONE (22:05)
[2017-09-20 22:29] LABS: Amphetamine Screen,Urine PRESUMPTIVE NEGATIVE; Benzodiazepines Screen,Urine PRESUMPTIVE NEGATIVE; Cocaine Screen,Urine PRESUMPTIVE NEGATIVE; Methadone Screen,Urine PRESUMPTIVE NEGATIVE; Opiate Screen,Urine PRESUMPTIVE NEGATIVE
[2017-09-20 22:44] LABS: Cannabinoid Screen,Urine PRESUMPTIVE POSITIVE
[2017-09-20] MEDS ORDERED: ATIVAN IV ONE (23:07)
[2017-09-20] MEDS: LACTATED RINGERS 1,000 ML IV SCH (23:25)
[2017-09-21 00:44] LABS: Alanine Aminotransferase 11 units/L (7-56); Albumin 3.8 g/dL (3.9-5); BUN/Creatinine Ratio 20; Blood Urea Nitrogen 6 mg/dL (7-17); Calcium 8.7 mg/dL (8.4-10.2); Hemolysis Index 0
[2017-09-21 01:18] LABS: Hematocrit 26.3 % (30.3-42.9); Hemoglobin 7.9 gm/dl (10.1-14.3); Mean Corpuscular HGB Conc 30 % (30-34); Mean Corpuscular Hemoglobin 20 pg (28-32); Mean Corpuscular Volume 66 fl (79-97); Platelet Count 312 K/mm3 (140-440); Red Blood Count 3.98 M/mm3 (3.65-5.03); Red Cell Distribution Width 18.6 % (13.2-15.2)
[2017-09-21] MEDS: NORMODYNE PO SCH ×3 (02:32→22:36)
[2017-09-21] MEDS: ZOFRAN IV PRN ×3 (02:32→22:37)
[2017-09-21 02:33] LABS: Bilirubin,Urine NEG (Negative); Blood,Urine NEG (Negative); Color,Urine Yellow (Yellow); Mucus,Urine FEW /HPF; Protein,Urine <15 mg/dL mg/dL (Negative); Urobilinogen,Urine < 2.0 mg/dL (<2.0)
[2017-09-21] MEDS ORDERED: PERCOCET 5/325 PO PRN (04:27)
[2017-09-21] MEDS: LACTATED RINGERS 1,000 ML IV SCH ×2 (08:21→18:44)
--- NOTE | 2017-09-21 09:06 | History and Physical Report ---
History of Present Illness Date of examination: 09/21/17 Date of admission: 09/20/17 23:30 Chief complaint: nausea and vomiting History of present illness: 22y/o @ 24+0 weeks presents with the complaint of nausea and lower abdominal pain. She denies vaginal bleeding or leakage of fluid. The patient has a known history of a seizure disorder. She admits to not taking her Keppra. She is not receiving care while in [place]. UDS +THC. Past History Past Medical History: asthma, hypertension, seizure Past Surgical History: no surgical history Social history: single, smoking - Obstetrical History Expected Date of Delivery: 01/11/18 Actual Gestation: 24 Week(s) 0 Day(s) : 4 Para: 2 Hx # Term Pregnancies: 1 Number of Pregnancies: 1 Spontaneous Abortions: 1 Induced : 0 Number of Living Children: 2 Medications and Allergies Allergies Allergy/AdvReac Type Severity Reaction Status Date / Time latex Allergy Rash Verified 11/23/14 13:50 Home Medications Medication Instructions Recorded Confirmed Last Taken Type Labetalol [Normodyne TAB] 100 mg PO BID 09/20/17 09/21/17 09/20/17 09:00 History Active Meds: Active Medications Lactated Ringer's (Lactated Ringers) 1,000 mls @ 125 mls/hr IV DIRECT JANY Last Admin: 09/21/17 08:21 Dose: 125 mls/hr Labetalol HCl (Normodyne) 100 mg PO BID [facility] Last Admin: 09/21/17 02:32 Dose: 100 mg Ondansetron HCl (Zofran) 8 mg IV Q8H PRN PRN Reason: Nausea Last Admin: 09/21/17 02:32 Dose: 8 mg Oxycodone/Acetaminophen (Percocet 5/325) 1 tab PO Q4H PRN PRN Reason: Pain, Moderate (4-6) Last Admin: 09/21/17 04:44 Dose: 1 tab Review of Systems All systems: negative Constitutional: lethargy Genitourinary: pelvic pain, no vaginal bleeding, no leakage of fluid - Vital Signs Vital signs: Vital Signs Temp Pulse Resp BP Pulse Ox 97.3 F L 89 18 134/78 99 09/20/17 22:13 09/20/17 22:13 09/20/17 22:13 09/20/17 22:13 09/20/17 22:13 Temp Pulse Resp BP Pulse Ox 97.6 F 88 18 137/84 99 09/21/17 03:26 09/21/17 03:26 09/21/17 04:44 09/21/17 03:26 09/21/17 03:26 - Physical Exam Breasts: Positive: deferred Cardiovascular: Regular rate Lungs: Positive: Clear to auscultation Abdomen: Positive: normal appearance Results Result Diagrams: 09/20/17 23:00 09/20/17 23:00 Abnormal lab results 09/20/17 09/20/17 Range/Units 23:00 23:00 Hgb 7.9 L (10.1-14.3) gm/dl Hct 26.3 L (30.3-42.9) % MCV 66 L (79-97) fl MCH 20 L (28-32) pg RDW 18.6 H (13.2-15.2) % Carbon Dioxide 20 L (22-30) mmol/L BUN 6 L (7-17) mg/dL Creatinine 0.3 L (0.7-1.2) mg/dL Glucose 124 H (65-100) mg/dL Albumin 3.8 L (3.9-5) g/dL All other labs normal. Assessment and Plan - Patient Problems (1) Abdominal pain affecting Current Visit: Yes Status: Acute Plan to address problem: restart Keppra continue IV hydration and slowly advance diet as tolerated obtain OB ultrasound (2) Seizure disorder during Current Visit: Yes Status: Acute (3) Nausea and vomiting Current Visit: No Status: Acute
[2017-09-21] MEDS ORDERED: KEPPRA 1,000 MG in NACL 0.9% 100 ML IV ONE (12:00)
[2017-09-21] MEDS: REGLAN IV PRN ×2 (12:11→18:50)
--- NOTE | 2017-09-21 15:15 | Consultation ---
History of Present Illness Consult date: 09/21/17 Requesting physician: RONNIE ROCHE Reason for Consult: seizure disorder Chief complaint: seizure disorder History of present illness: This 22-year-old right-handed -Tristanian female says she's had seizures since age 7 and was on Keppra back then which she recalls made her sleepy. She gets lightheaded prior to seizures which consist of stiffening, foaming at the mouth as witnessed today and sometimes wetting herself but without tongue biting or lip or cheek biting. She was seen here at end of July for similar seizure by Dr. Gallardo who recommended starting her on Keppra once she reached 24 weeks gestation but she has not been placed on Keppra until I did today. She states she had 3 seizures in July and 2 or 3 in August but seems to be counting today's spells during examination as being in August because she thinks today is September 20. She takes labetalol 100 mg twice a day, vitamins daily and uses an albuterol inhaler for asthma. Past History Past Medical History: hypertension, seizures, other (asthma) Past Surgical History: No surgical history Social history: single, smoking (3 cigarettes per day), other (was using marijuana daily until at which time she stopped. Rare alcohol prior to . Was working as a hemodialysis patient care specialist.). denies: alcohol abuse, prescription drug abuse, IV drug use Medications and Allergies Allergies Allergy/AdvReac Type Severity Reaction Status Date / Time latex Allergy Rash Verified 11/23/14 13:50 Home Medications Medication Instructions Recorded Confirmed Last Taken Type Labetalol [Normodyne TAB] 100 mg PO BID 09/20/17 09/21/17 09/20/17 09:00 History Active Meds: Active Medications Lactated Ringer's (Lactated Ringers) 1,000 mls @ 125 mls/hr IV DIRECT JANY Last Admin: 09/21/17 08:21 Dose: 125 mls/hr Labetalol HCl (Normodyne) 100 mg PO BID JANY Last Admin: 09/21/17 10:19 Dose: 100 mg Levetiracetam (Keppra) 750 mg PO BID JANY Metoclopramide HCl (Reglan) 10 mg IV Q6H PRN PRN Reason: Nausea And Vomiting Last Admin: 09/21/17 12:11 Dose: 10 mg Ondansetron HCl (Zofran) 8 mg IV Q8H PRN PRN Reason: Nausea Last Admin: 09/21/17 10:15 Dose: 8 mg Review of Systems All systems: negative (frontal headaches at times with nausea and photophobia. Gets lightheaded prior to seizures. No snoring. Sometimes forgets where she is associated with the seizures.) Physical Examination - Vital Signs Vital Signs: Vital Signs Temp Pulse Resp BP Pulse Ox 97.3 F L 89 18 134/78 99 09/20/17 22:13 09/20/17 22:13 09/20/17 22:13 09/20/17 22:13 09/20/17 22:13 - Physical Exam Narrative exam: General Appearance: well developed well nourished (per BMI) mid 20s - Tristanian female in NAD but then has several spells resembling generalized tonic- clonic seizures but wakes up promptly without any apparent postictal change from the 2 episodes witnessed. Was foaming at the mouth and then throughout both times but was already nauseated prior to the episodes. Did not respond to gently squeezing her nose tickling at but toes were downgoing during the seizures and eyes were closed suggesting psychogenic spells. Was moaning and crying during early portion of spell then yelling for her mother and wanting to take out IV, trying to get out of bed. HEENT: atraumatic, normocephalic; no bruits, 2+ Ehsan without soreness or induration or enlargement, sclerae nonicteric. Oropharynx pink and moist. Neck: supple, no bruits. Heart: II/ systolic ejection murmur at the base (was unaware of this) but no other extra sounds. Extremities: no clubbing, cyanosis or edema. 2+ posterior tibial pulses bilaterally. Neurologic Exam: Mental Status: Awake, alert, oriented to 09/20/2017 but thinks it is Wednesday, knows she is at a hospital but not the name, speech is clear, names pen and point of pen, and abstracts well. Names President but not Porcelain Waxer, serial 7's are somewhat poor but gets 5+7 = 12, refuses to do the right-left task, could not do the 3 of 3 objects tasks since she had an episode during the middle of it, refuses to spell WORLD backwards. Cranial Nerves: archer full, no papilledema, SVPs present, PERRLA, EOMs full without nystagmus or diplopia, facial sensation intact to pinprick, no facial weakness, [place] is midline, palate rises symmetrically to phonation, shoulder shrug is 4- X 2 with poor effort, tongue protrudes midline. Cerebellar: Refuses to do finger to nose but heel to araya is intact bilaterally. Sensory: intact to light touch, pinprick, and vibrations. Cannot cooperate for double simultaneous stimulation. Motor Exam Upper Extremities: Will not raise his arms off the bed. Will not cooperate for rapid alternating movements. Collateral Specialist are 3+ X 2 with poor effort, tone is normal. No atrophy or fasciculations are noted visually. Motor Exam Lower Extremities: Poor effort on lifting legs but no leg lag, quadriceps are 2 with poor effort and anterior tibials and gastrocnemius are 3+ right and 3- left with poor effort. Will not do Polly. Tone is normal. No atrophy or fasciculations are noted visually. Reflexes: Palmomental and snout are negative but jaw jerk is slightly positive. Triceps, biceps and brachioradialis are 2 bilaterally. Jcarlos's is negative bilaterally. Knee jerks and ankle jerks are 2 bilaterally without clonus. Toes are downgoing bilaterally to Babinski testing done during these spells. Results - Laboratory Findings CBC and BMP: 09/20/17 23:00 09/20/17 23:00 Abnormal Lab Findings: Abnormal Labs 09/20/17 09/20/17 23:00 23:00 Hgb 7.9 L Hct 26.3 L MCV 66 L MCH 20 L RDW 18.6 H Carbon Dioxide 20 L BUN 6 L Creatinine 0.3 L Glucose 124 H Albumin 3.8 L Assessment and Plan Impression: 1. Psychogenic spells 2. Common migraine, nonintractable Plan: 1. Ordered prolactin, drawn at 20 min after a spell, level is pending. If elevated would support real seizures. 2. Ordered levetiracetam in case spells are real. Will change to extended release to lessen side effects. 3. EEG about to be done. 4. Spoke to Dr. Lee who will try to arrange a sitter since she tried to get out of bed during spells and she will order a Psychiatry consult. 45 min spent including management of two episodes. Did not order Ativan since did not seem real. Thank you for an interesting consultation in my area of subspecialty (epilepsy) on this mid 20s lady. Will read EEG and provide a preliminary report.
[2017-09-21] MEDS: KEPPRA PO SCH (18:46)
--- NOTE | 2017-09-21 20:45 | Electroencephalogram Report ---
Electroencephalogram EEG Date of exam: 09/21/17 Description: The waking background shows an appropriate organization with well-defined anterior posterior voltage and frequency gradients. Posteriorly, there is a well -developed alpha rhythm of 9 Hz which is symmetrical and bilaterally reactive. Anteriorly, there is a pattern of lower voltage and slightly irregular theta and beta range frequencies. Some slowing is seen with drowsiness. K complexes of sleep are seen. No epileptiform activity. Interpretation: Preliminary reading: Normal wake/sleep EEG.
[2017-09-21] MEDS ORDERED: KEPPRA PO SCH (22:00)
[2017-09-22] MEDS: REGLAN IV PRN ×4 (01:23→23:19)
--- NOTE | 2017-09-22 03:58 | Ultrasound Report ---
FINAL REPORT EXAM: US OB > = 14 WEEKS FETUS HISTORY: abdominal pain TECHNIQUE: Routine transabdominal imaging was obtained of the pelvis including Doppler interrogation of the uterus. FINDINGS: There is a single viable intrauterine with an estimated gestational age of 24 weeks 4 days based on sonographic criteria. The fetus is in cephalic presentation. The heart rate is 162 BPM. The amniotic fluid index is 19.7 which is normal. The placenta is anterior and right of midline. It is grade 0. There are no gross anomalies involving the choroid plexus, cisterna magna, cerebellum, lateral ventricles, stomach, kidneys, bladder, diaphragm, four-chamber reveal heart, heart, three-vessel cord or umbilical cord insertion. The entire spine is not seen because of difficulties in positioning. The indices and ratios are all within normal range. The estimated weight is 721 grams. The cervix is closed and measures 5 cm in length. IMPRESSION: Single viable IUP, 24 weeks 4 days. Cephalic presentation. The heart rate is 162 BPM.
[2017-09-22] MEDS: ZOFRAN IV PRN ×2 (06:45→14:42)
--- NOTE | 2017-09-22 07:37 | Progress Note ---
Assessment and Plan - Patient Problems (1) Abdominal pain affecting Current Visit: Yes Status: Acute Plan to address problem: will await psych evaluation obstetrically the patient is stable Keppra administation to obtain therapeutic dosing (2) Seizure disorder during Current Visit: Yes Status: Acute (3) Nausea and vomiting Current Visit: No Status: Acute Subjective - Subjective Date of service: 09/22/17 Interval history: 22y/o @ 24+1 weeks presents with the complaint of nausea and lower abdominal pain. The patient was evaluated by neurology yesterday. She was started on Keppra. The patient exhibits unusual behavior that resembles a seizure however does not present with postictal findings. After the episodes patient resumes normal status. The patient often times appears lethargic but is responsive. She has not attempted a regular diet. She notes improvement with the use of Zofran. Physical exam is benign. There is possible concern that the patient may not have a traditional seizure disorder. Psych will be referred for further evaluation. Today we will attempt advancement of her diet. OB ultrasound was unremarkable. Patient reports: no new complaints Objective - Vital Signs Vital Signs: Vital Signs - 12hr 09/21/17 09/21/17 09/21/17 19:50 19:56 20:26 Temperature 96.5 F L Pulse Rate 101 H 93 H Respiratory 16 Rate Blood Pressure 140/80 136/80 09/21/17 09/21/17 09/21/17 20:56 21:26 21:49 Temperature Pulse Rate 87 93 H 94 H Respiratory Rate Blood Pressure 135/79 133/81 138/85 09/21/17 09/21/17 09/21/17 21:56 22:26 22:36 Temperature Pulse Rate 88 87 87 Respiratory Rate Blood Pressure 155/97 132/74 132/74 09/21/17 09/22/17 09/22/17 23:56 00:26 01:53 Temperature 97.8 F Pulse Rate 107 H 94 H Respiratory 16 Rate Blood Pressure 136/74 137/75 09/22/17 01:56 Temperature Pulse Rate 81 Respiratory Rate Blood Pressure 154/89 - Exam Breasts: deferred Cardiovascular: Regular rate Lungs: Clear to auscultation Abdomen: Present: normal appearance FHR: auscultation normal - Labs Labs: Abnormal Labs 09/20/17 09/20/17 23:00 23:00 Hgb 7.9 L Hct 26.3 L MCV 66 L MCH 20 L RDW 18.6 H Carbon Dioxide 20 L BUN 6 L Creatinine 0.3 L Glucose 124 H Albumin 3.8 L
[2017-09-22] MEDS: KEPPRA PO SCH ×2 (10:00→23:16)
[2017-09-22] MEDS: NORMODYNE PO SCH ×2 (10:00→23:15)
[2017-09-22] MEDS: LACTATED RINGERS 1,000 ML IV SCH ×2 (23:22→23:25)
[2017-09-23] MEDS ORDERED: AMMONIA INHALANT IH ONE (01:59)
[2017-09-23] MEDS ORDERED: ATIVAN IV PRN (02:20)
--- NOTE | 2017-09-23 02:34 | Event Note ---
Date: 09/23/17 On-call physician contacted because pt pulled emergency light from the bathroom of her room. Per the RN, the patient was found lying on the floor of the bathroom, initially not responding to her name, but quickly responsive after ammonia salts were placed near her nose. Pt reports side pain and then was screaming "Take the baby out" repeatedly. Vital signs taken immediately after this incident, and are within normal limits. heart tones obtained. Pt's sitter had been removed earlier on 09/22/17 as she has been cleared by psych. Plan to reinstate sitter for safety. Administer Ativan 1 mg IV. Pt reports that she hit her head during this episode though no evidence of injury outwardly per RN. MRI head ordered. Continue to monitor clinically. Reconsult psychiatry.
[2017-09-23] MEDS: LACTATED RINGERS 1,000 ML IV SCH (07:23)
--- NOTE | 2017-09-23 07:31 | Progress Note ---
Assessment and Plan A: IUP at 24w2d Nausea - improved, tolerating regular diet Pseudoseizures- normal EEG Abdominal pain - none currently No care Fall last night P: Reconsult Psych Follow up MRI Pt has no obstetric issues presently but pt may need to be admitted to a [facility] facility Subjective - Subjective Date of service: 09/23/17 Principal diagnosis: IUP at 24w2d; Nausea, abdominal pain Interval history: EEG negative. Seen by Psych yesterday. Pt had fall in the middle of the night per event note. Ultrasound read pending. MRI head pending. This morning, pt is alert and eating breakfast. She feels better. Patient reports: no new complaints Objective - Vital Signs Vital Signs: Vital Signs - 12hr 09/22/17 09/22/17 09/22/17 22:47 23:15 23:19 Temperature Pulse Rate 75 94 H 85 Respiratory Rate Blood Pressure 164/92 164/92 Blood Pressure [Left] O2 Sat by Pulse 98 Oximetry 09/22/17 09/22/17 09/23/17 23:35 23:38 02:17 Temperature 96.4 F L Pulse Rate 56 L 56 L 82 Respiratory 18 Rate Blood Pressure 143/76 130/81 Blood Pressure 143/76 [Left] O2 Sat by Pulse Oximetry 09/23/17 09/23/17 09/23/17 02:38 03:38 04:38 Temperature Pulse Rate 67 84 75 Respiratory Rate Blood Pressure 148/67 110/65 112/69 Blood Pressure [Left] O2 Sat by Pulse Oximetry 09/23/17 09/23/17 05:39 06:38 Temperature Pulse Rate 76 71 Respiratory Rate Blood Pressure 117/74 132/60 Blood Pressure [Left] O2 Sat by Pulse Oximetry - Exam Breasts: deferred Cardiovascular: Regular rate Lungs: Clear to auscultation Abdomen: Present: soft (gravid ) Uterus: Present: normal (gravid ) FHR: auscultation normal Uterine Tone Measurement Phase: Resting Extremities: normal - Labs Labs: Abnormal Labs 09/20/17 09/20/17 23:00 23:00 Hgb 7.9 L Hct 26.3 L MCV 66 L MCH 20 L RDW 18.6 H Carbon Dioxide 20 L BUN 6 L Creatinine 0.3 L Glucose 124 H Albumin 3.8 L - Results US- obstetric: pending
--- NOTE | 2017-09-23 09:46 | Ultrasound Report ---
History: Status post fall and rule out abruption. Findings: Gestation: Single Position: Cephalic Amniotic Fluid: EDVIN = 21.9 cm Placenta: Anterior Placental Grade: 1 Heart Rate: 157 BPM Heterogeneous area noted in the superior right tip of placenta measuring 3.2 x 1.5 cm probably a subchorionic hematoma. Followup advised
--- NOTE | 2017-09-23 10:12 | Magnetic Resonance Report ---
MRI scan of brain: History: 24 weeks, status post fall. Technique: Multiplanar multisequence images were obtained without contrast injection. Findings: No evidence of restricted diffusion. Ventricles are normal in size and midline in location. No evidence of acute ischemic, hemorrhage or mass. No extra-axial fluid collection. Normal sinuses and mastoid air cells are Impression: No acute intracranial abnormality.
[2017-09-23] MEDS: NORMODYNE PO SCH (14:34)
[2017-09-23] MEDS: KEPPRA PO SCH (14:34)
[2017-09-23 18:08] VITALS: BP 121/76
--- NOTE | 2017-09-23 22:01 | Event Note ---
Date: 09/23/17 Late entry. Pt expressed to nurse a desire to leave against medical advice because she is ready to go home. She signed against medical advice papers before leaving the premises.
--- NOTE | 2017-09-23 22:07 | Discharge Summary ---
Providers - Providers Date of Admission: 09/20/17 23:30 Date of discharge: 09/23/17 Attending physician: RONNIE ROCHE 09/21/17 09:04 Consult to Physician [CONS] Stat Comment: Consulting Provider: LUIS JIMENEZ Physician Instructions: Reason For Exam: seizure disorder iup 24 weeks 09/21/17 14:41 Consult to Physician [CONS] Stat Comment: Consulting Provider: RONNIE ROCHE Physician Instructions: Request a psychiatry consult for seizure like Reason For Exam: seizure like activity in 09/22/17 10:31 psychiatry consult [Consult to Mental Health] [CONS] Stat Reason For Exam: neurology recommended Place consult to:: [place] Notified:: Con[place] Phone number called:: [phone] Was contact made?: Yes If yes, spoke with:: Con[place] Time called:: 08:45 09/23/17 07:31 Consult to Mental Health [CONS] Urgent Reason For Exam: 24 wks, change in behavior Place consult to:: [place] Notified:: [facility] community development specialist Primary care physician: [facility] Hospitalization Reason for admission: other (abdominal pain, nausea/vomiting, ) Hospital course: Pt was admitted with nausea and abdominal pain in . She had a Neurology consult and an EEG while hospitalized. She was evaluated by psychiatry as well. Progressively, her nausea improved and she was able to tolerate a regular diet. During her hospitalization, the patient had an episode where she fell, and screamed "Take the baby out" repetitively only calmed with Ativan. A subsequent MRI brain was normal. Psychiatry was reconsulted after this event, but she left against medical advice prior this evaluation. She was encouraged to initiate care as soon as possible. Condition at discharge: Stable Disposition: DC-07 LEFT AGAINST MED ADVICE - Discharge Diagnoses (1) No care in current Status: Acute (2) Abdominal pain affecting Status: Acute (3) Nausea and vomiting Status: Acute Qualifiers: Vomiting type: unspecified Vomiting Intractability: non-intractable Qualified Code(s): R11.2 - Nausea with vomiting, unspecified (4) Seizure disorder during Status: Acute Qualifiers: Trimester: second trimester Qualified Code(s): O99.352 - Diseases of the nervous system complicating , second trimester; G40.909 - Epilepsy, unspecified, not intractable, without status epilepticus Plan - Provider Discharge Summary Activity: routine Diet: routine Instructions: routine Additional instructions: [] Smoking cessation referral if applicable(refer to patient education folder for contact #) [] Refer to [facility] Booklet Call your doctor immediately for: * Fever > 100.5 * Heavy vaginal bleeding ( >1 pad per hour) * Severe persistent headache * Shortness of breath * Reddened, hot, painful area to leg or breast * Drainage or odor from incision. * Keep incision clean and dry at all times and follow doctor's instructions regarding bathing/showering - Follow up plan Follow up: PRIMARY CARE, [Primary Care Provider] - Forms: AMA Form, [facility] Discharge Summary
== END 2017-09-23 18:55 | disposition left against medical advice (07) ==
LOC: TRG 21:47 → LD 21:58 → TRG 23:30
PROVIDERS: ADMIT Obstetrics & Gynecology; ATTEND Obstetrics & Gynecology
DX: O21.2 Late vomiting of pregnancy (principal); O99.352 Diseases of the nervous system complicating pregnancy, second trimester; G40.909 Epilepsy, unspecified, not intractable, without status epilepticus; O26.892 Other specified pregnancy related conditions, second trimester; R10.9 Unspecified abdominal pain; Z3A.24 24 weeks gestation of pregnancy
CPT/HCPCS: 36415; 70551; 76805; 76815; 80053; 80177; 80307; 81001; 84146; 85027; 95819; 96361; 96374; 96375; 96376; G0378; J1953; J2060; J2405; J2765; J7120

== ENCOUNTER 2017-09-30 13:23 | Emergency (ER) | payer OTHER ==
[2017-09-30 11:23] LABS: Mean Corpuscular HGB Conc 29 % (30-34); Platelet Count 392 K/mm3 (140-440); Red Blood Count 4.06 M/mm3 (3.65-5.03)
[2017-09-30 11:26] LABS: Bacteria,Urine 1+ /HPF (Negative); Bilirubin,Urine NEG (Negative); Blood,Urine NEG (Negative); Color,Urine Yellow (Yellow); Mucus,Urine 3+ /HPF; Urobilinogen,Urine < 2.0 mg/dL (<2.0)
[2017-09-30 11:29] LABS: Hematocrit 26.5 % (30.3-42.9); Hemoglobin 7.8 gm/dl (10.1-14.3); Mean Corpuscular Hemoglobin 19 pg (28-32); Mean Corpuscular Volume 65 fl (79-97)
[2017-09-30 11:48] LABS: Alanine Aminotransferase 14 units/L (7-56); Albumin 3.7 g/dL (3.9-5); BUN/Creatinine Ratio 37; Blood Urea Nitrogen 11 mg/dL (7-17); Calcium 9.1 mg/dL (8.4-10.2); Hemolysis Index 12
[~2017-09-30 13:23] MED LIST: LACTATED RINGERS 500 ML IV ONE; ZOFRAN IM ONE; ZOFRAN IV ONE
[2017-09-30 13:32] VITALS: BP 143/89
[2017-09-30] MEDS ORDERED: PERCOCET 5/325 PO ONE (13:58)
[2017-09-30] MEDS ORDERED: ATIVAN ONE (14:16)
[2017-09-30] MEDS ORDERED: ZOFRAN ONE (14:20)
[2017-09-30] MEDS ORDERED: ATIVAN PO ONE (15:00)
--- NOTE | 2017-09-30 15:49 | Ultrasound Report ---
FINAL REPORT EXAM: US ABDOMEN LIMITED HISTORY: rlq pain, TECHNIQUE: Directed sonography of the right lower quadrant. PRIORS: None. FINDINGS: Appendix is not confidently identified. No other focal abnormalities. IMPRESSION: 1. Nonvisualization of the appendix and indeterminate examination. Clinical correlation with appropriate laboratory values and followup may be warranted.
--- NOTE | 2017-09-30 17:44 | Emergency Department Report ---
ED Abdominal Pain HPI - General Chief Complaint: Weakness Time Seen by Provider: 09/30/17 13:43 Source: patient Mode of arrival: Wheelchair Limitations: No Limitations - History of Present Illness Initial Comments: Patient is a 22-year-old female who is approximately 38 weeks who is presenting with 2 days of abdominal pain. Patient is just left labor and delivery for evaluation and they have cleared the baby. Patient is not in labor at this time she is not bleeding. Patient has gone to labor and delivery multiple times in the last week for abdominal pain possible seizures and headaches. Patient has not established care with a [facility] office in particular as of yet. Patient was clear but refused to leave a property therefore therefore she was sent to the emergency department for evaluation. Patient denies any fevers sheis very nauseous but has pain in the right lower quadrant that the patient states is 10 out of 10. - Related Data Home Medications Medication Instructions Recorded Confirmed Last Taken Labetalol [Normodyne TAB] 100 mg PO BID 09/20/17 09/21/17 09/20/17 09:00 Previous Rx's Medication Instructions Recorded Last Taken Type Ondansetron [Zofran Odt] 4 mg PO Q8HR PRN #10 tab.rapdis 09/30/17 Unknown Rx Allergies Allergy/AdvReac Type Severity Reaction Status Date / Time latex Allergy Rash Verified 09/30/17 13:27 ED Review of Systems ROS: Stated complaint: Other details as noted in HPI Comment: All other systems reviewed and negative ED Past Medical Hx - Past Medical History Hx Hypertension: Yes (chtn; labetalol bid) Hx Diabetes: No Hx Deep Vein Thrombosis: No Hx Renal Disease: No Hx Sickle Cell Disease: No Hx Arthritis: Yes Hx Seizures: Yes (LAST SEIZURE a couple weeks ago) Hx Asthma: Yes (USE INHALER, ALBUTEROL INHALER USED TODAY) Hx COPD: No Hx HIV: No Additional medical history: SCOLIOSIS - Social History Smoking Status: Current Every Day Smoker - Medications Home Medications: Home Medications Medication Instructions Recorded Confirmed Last Taken Type Labetalol [Normodyne TAB] 100 mg PO BID 09/20/17 09/21/17 09/20/17 09:00 History Ondansetron [Zofran Odt] 4 mg PO Q8HR PRN #10 tab.rapdis 09/30/17 Unknown Rx ED Physical Exam - General Limitations: No Limitations General appearance: alert, anxious, in distress - Head Head exam: Present: atraumatic, normocephalic - Eye Eye exam: Present: normal appearance - ENT ENT exam: Present: mucous membranes moist - Neck Neck exam: Present: normal inspection - Respiratory Respiratory exam: Present: normal lung sounds bilaterally. Absent: respiratory distress, wheezes, rhonchi - Cardiovascular Cardiovascular Exam: Present: regular rate, normal rhythm. Absent: systolic murmur, diastolic murmur, rubs, gallop - GI/Abdominal GI/Abdominal exam: Present: soft, tenderness (patient has a gravid uterus and has tenderness palpation in the right lower quadrant.), normal bowel sounds. Absent: distended, guarding, rebound - Extremities Exam Extremities exam: Present: normal inspection - Back Exam Back exam: Present: normal inspection - Neurological Exam Neurological exam: Present: alert, oriented X3 - Psychiatric Psychiatric exam: Present: normal affect, normal mood - Skin Skin exam: Present: warm, dry, intact, normal color. Absent: rash ED Course Vital Signs 09/30/17 09/30/17 09/30/17 10:35 10:37 10:38 Temperature 98.4 F Pulse Rate 102 H 99 H Respiratory 18 Rate Blood Pressure 162/93 Blood Pressure 162/93 [Right] O2 Sat by Pulse 97 Oximetry 09/30/17 09/30/17 09/30/17 10:39 10:42 13:28 Temperature 98.3 F Pulse Rate 108 H 113 H 101 H Respiratory 16 Rate Blood Pressure 143/89 Blood Pressure [Right] O2 Sat by Pulse 93 98 99 Oximetry ED Medical Decision Making - Lab Data Result diagrams: 09/30/17 10:55 09/30/17 10:55 - Radiology Data Ordering Physician: EBER SPARROW MD Date of Service: 09/30/17 Procedure(s): US abdomen limited Accession Number(s): [id number] cc: EBER SPARROW MD FINAL REPORT EXAM: US ABDOMEN LIMITED HISTORY: rlq pain, TECHNIQUE: Directed sonography of the right lower quadrant. PRIORS: None. FINDINGS: Appendix is not confidently identified. No other focal abnormalities. IMPRESSION: 1. Nonvisualization of the appendix and indeterminate examination. Clinical correlation with appropriate laboratory values and followup may be warranted. Transcribed By: [facility] Dictated By: BIN PICHARDO MD Electronically Authenticated By: BIN PICHARDO MD Signed Date/Time: 09/30/17 0618 - Medical Decision Making Patient is calm down after Percocet and 0.5 mg of Ativan. Patient states her nausea is improved after Zofran. Patient is no longer thrashing around the room and laying on the floor. Patient's ultrasound shows no evidence of inflammatory changes in the right lower quadrant although the appendix is not visualized. Patient was told that she needs to follow with [facility] and will be discharged home at this time. Patient is asked for nausea medicines and a prescription for Zofran have been given. Patient is to take Tylenol for pain and this been told to the patient. Critical care attestation.: If time is entered above; I have spent that time in minutes in the direct care of this critically ill patient, excluding procedure time. ED Disposition Clinical Impression: Abdominal pain affecting Disposition: DC-01 TO HOME OR SELFCARE Is pt being admited?: No Does the pt Need Aspirin: No Condition: Stable Instructions: Labor/ Labor Instructions, Movement (DC) Additional Instructions: Drink plenty of fluids to prevent dehydration movement Referrals: PRIMARY CARE, [Primary Care Provider] - 7 Days Forms: Discharge Signature Page
== END 2017-09-30 19:21 | disposition home or self-care (01) ==
LOC: ED 13:23 → TRG 13:23 → EDSTATUS 13:25 → TRG 13:32 → ED 13:32
DX: O26.893 Other specified pregnancy related conditions, third trimester (principal); R10.9 Unspecified abdominal pain; I10 Essential (primary) hypertension; M19.90 Unspecified osteoarthritis, unspecified site; F17.200 Nicotine dependence, unspecified, uncomplicated; Z91.040 Latex allergy status; Z3A.38 38 weeks gestation of pregnancy
CPT/HCPCS: 36415; 59025; 76705; 80053; 81001; 85027; 96360; 96374; 99284; J2060; J2405; J7120

== ENCOUNTER 2017-10-01 11:36 | Outpatient (CLI) | payer OTHER ==
[2017-10-01] MEDS ORDERED: LACTATED RINGERS 500 ML IV ONE (12:08)
[2017-10-01 12:55] LABS: Bacteria,Urine 2+ /HPF (Negative); Bilirubin,Urine NEG (Negative); Blood,Urine NEG (Negative); Color,Urine Amber (Yellow); Hyaline Casts,Urine 1 /LPF; Mucus,Urine 2+ /HPF
[2017-10-01 13:04] LABS: Amphetamine Screen,Urine PRESUMPTIVE NEGATIVE; Benzodiazepines Screen,Urine PRESUMPTIVE NEGATIVE; Cocaine Screen,Urine PRESUMPTIVE NEGATIVE; Methadone Screen,Urine PRESUMPTIVE NEGATIVE; Opiate Screen,Urine PRESUMPTIVE NEGATIVE
[2017-10-01 13:19] LABS: Cannabinoid Screen,Urine PRESUMPTIVE POSITIVE
[2017-10-01] MEDS ORDERED: ZOFRAN IV ONE (13:35)
--- NOTE | 2017-10-01 16:29 | Ultrasound Report ---
FINAL REPORT EXAM: US OB FOLLOW UP HISTORY: wellbeing . Maternal nodule and vomiting with abdominal pain. TECHNIQUE: Limited obstetrical ultrasound PRIORS: Ultrasound Ob 09/23/2017 FINDINGS: LMP: 04/06/2017 clinical Age: 25 w 3 d US Age (average) = 25 w 5 d EFW (BPD,HC,AC,FL) = 792 g +/- 117 g (1 lbs 12. oz. +/- 4 oz.) LMP EDC 01/11/2018 US EDC 01/09/2018 CI 81.9 HC/AC 1.2 FL/BPD 71.9 FL/HC 19.6 FL/AC 23.4 BPD 6.5 cm corresponding to 26 weeks 3 days HC 24.0 cm corresponding to 26 weeks 1 day AC 20.1 cm corresponding to 24 weeks 5 days FL 4.7 cm corresponding to 25 weeks 5 days Presentation: Cephalic Activity: Monitored Placental location: anterior with no evidence for previa. There is a hypoechoic area area within the placenta which is unchanged. Placental grade: 0 Cardiac motion: 159 BPM using M-mode doppler Amniotic Fluid Volume: Adequate EDVIN 11.1 cm (normal) IMPRESSION: Stable hypoechoic area within the placenta. No significant interval change overall.
[2017-10-01] MEDS ORDERED: ZOFRAN ONE ×2 (21:02→23:28)
[2017-10-01] MEDS ORDERED: LACTATED RINGERS 1,000 ML ONE (21:03)
[2017-10-01 21:15] VITALS: BP 131/65
== END 2017-10-01 23:40 | disposition home or self-care (01) ==
LOC: TRG 11:36 → LD 15:41 → TRG 23:40
PROVIDERS: ATTEND Obstetrics & Gynecology
DX: O21.2 Late vomiting of pregnancy (principal); O26.892 Other specified pregnancy related conditions, second trimester; R10.9 Unspecified abdominal pain; Z3A.25 25 weeks gestation of pregnancy
CPT/HCPCS: 59025; 76816; 80307; 81001; 96360; 96374; 96376; J2405; J7120

== ENCOUNTER 2017-11-07 09:00 | Observation (INO) | payer OTHER ==
[2017-11-07] MEDS ORDERED: LACTATED RINGERS 500 ML IV ONE (09:08)
[2017-11-07 10:31] LABS: Basophils % (Auto) 0.3 % (0.0-1.8); Eosinophils % (Auto) 0.1 % (0.0-4.3); Lymphocytes % (Auto) 7.9 % (13.4-35.0); Mean Corpuscular HGB Conc 28 % (30-34); Monocytes # (Auto) 0.4 K/mm3 (0.0-0.8); Monocytes % (Auto) 3.3 % (0.0-7.3); Platelet Count 425 K/mm3 (140-440); Red Blood Count 4.04 M/mm3 (3.65-5.03)
[2017-11-07 10:47] LABS: Hemoglobin 7.4 gm/dl (10.1-14.3)
[2017-11-07 10:48] LABS: Alanine Aminotransferase 9 units/L (7-56); Hematocrit 26.4 % (30.3-42.9); Mean Corpuscular Hemoglobin 18 pg (28-32); Mean Corpuscular Volume 65 fl (79-97); Uric Acid 5.5 mg/dL (3.5-7.6)
[2017-11-07] MEDS ORDERED: ZOFRAN IV ONE ×2 (11:00→22:17)
[2017-11-07 11:26] LABS: Bacteria,Urine 1+ /HPF (Negative); Bilirubin,Urine NEG (Negative); Blood,Urine NEG (Negative); Color,Urine Yellow (Yellow); Mucus,Urine 3+ /HPF
--- NOTE | 2017-11-07 11:29 | Ultrasound Report ---
BIOPHYSICAL PROFILE: 11/07/17 09:00:00 CLINICAL: Chronic hypertension. Check well-being. FINDINGS: The biophysical profile was scored as followin - breathing movements 2 - movements 2 - posture and tone 2 - Qualitative amniotic fluid volume 8 - TOTAL SCORE OF POSSIBLE 8 Heart Rate (bpm) = 141 IMPRESSION: Normal study
[2017-11-07 11:55] LABS: Amphetamine Screen,Urine PRESUMPTIVE NEGATIVE; Benzodiazepines Screen,Urine PRESUMPTIVE NEGATIVE; Cocaine Screen,Urine PRESUMPTIVE NEGATIVE; Methadone Screen,Urine PRESUMPTIVE NEGATIVE; Opiate Screen,Urine PRESUMPTIVE NEGATIVE
[2017-11-07] MEDS ORDERED: LACTATED RINGERS 1,000 ML ONE (11:58)
[2017-11-07] MEDS ORDERED: NORMODYNE PO ONE (12:00)
[2017-11-07 12:17] LABS: Cannabinoid Screen,Urine PRESUMPTIVE POSITIVE
[2017-11-07] MEDS ORDERED: MAGNESIUM SULFATE 4GM/100ML 4 GM/100 ML BAG IV ONE (13:52)
[2017-11-07] MEDS ORDERED: CALCIUM GLUCONATE IV ONE (13:52)
[2017-11-07] MEDS ORDERED: NORMODYNE IV PRN (13:57)
[2017-11-07] MEDS ORDERED: MAGNESIUM SULFATE 40GM/1000ML 40 GM/1,000 ML BAG IV SCH (14:00)
--- NOTE | 2017-11-07 14:09 | History and Physical Report ---
History of Present Illness Date of examination: 11/07/17 Chief complaint: Elevated BP No PNC History of present illness: 22y/o @ 30+4 weeks presents with the complaint of nausea and lower abdominal pain, she is a drop-in patient with no care. Essential history this patient who is well known to L&D due to numerous presentations. She has a history of seizure disorder and chronic hypertension. Patient was seen in July and September in this hospital, she appears to have had a seizure disorder and was seen by neurology and psychiatry. She was advised to follow up outpatient, it appears she did not. Note the patient left AGAINST MEDICAL ADVICE during her last visit in September In triage, her blood pressure is labile in the 130s to 160s over 70s to 100s. She denies headache, epigastric pain or scotomata but does complain of abdominal pain and nausea vomiting. She denies vaginal bleeding or leakage of fluid, she is not [place] on the monitor. The patient claims she has been compliant with her labetalol but denies use of Keppra Past History Past Medical History: asthma, hypertension, seizure Past Surgical History: no surgical history [employer] History: chlamydia, gonorrhea. denies: hepatitis B, hepatitis C, HIV, syphilis, trichomonas Social history: single, full code, other (UDS positive for marijuana). denies: smoking - Obstetrical History Expected Date of Delivery: 01/12/18 Actual Gestation: 30 Week(s) 4 Day(s) : 4 Para: 2 Hx # Term Pregnancies: 1 Number of Pregnancies: 1 Number of Living Children: 2 Medications and Allergies Allergies Allergy/AdvReac Type Severity Reaction Status Date / Time latex Allergy Severe Rash Verified 10/01/17 12:08 Home Medications Medication Instructions Recorded Confirmed Last Taken Type Labetalol [Normodyne TAB] 100 mg PO BID 09/20/17 11/07/17 11/07/17 08:00 History Ondansetron [Zofran Odt] 4 mg PO Q8HR PRN #10 tab.rapdis 09/30/17 11/07/17 2 Days Ago Rx ~11/05/17 Active Meds: Active Medications Calcium Gluconate (Calcium Gluconate) 1,000 mg IV ONCE ONE Stop: 11/07/17 13:53 Lactated Ringer's (Lactated Ringers) 1,000 mls @ 125 mls/hr IV DIRECT JANY Magnesium Sulfate (Magnesium Sulfate 40gm/1000ml) 40 gm in 1,000 mls @ 50 mls/ hr IV DIRECT JANY Magnesium Sulfate (Magnesium Sulfate 4gm/100ml) 4 gm in 100 mls @ 300 mls/hr IV ONCE ONE Stop: 11/07/17 14:11 Labetalol HCl (Normodyne) 10 mg IV Q20MIN PRN PRN Reason: Blood Pressure Stop: 11/08/17 13:56 Review of Systems Constitutional: no fever, no chills, no sweats, no chronic headaches Cardiovascular: high blood pressure, no chest pain, no orthopnea, no syncope, no lightheadedness, no shortness of breath, no dyspnea on exertion Respiratory: excessive sputum, no cough, no shortness of breath, no dyspnea on exertion Gastrointestinal: abdominal pain Genitourinary: no vaginal bleeding, no vaginal discharge, no leakage of fluid, no contractions - Vital Signs Vital signs: Vital Signs Pulse BP 106 H 178/101 11/07/17 09:11 11/07/17 09:11 Temp Pulse Resp BP Pulse Ox 98.2 F 73 19 161/100 100 11/07/17 09:15 11/07/17 13:49 11/07/17 09:15 11/07/17 13:49 11/07/17 10:48 - Physical Exam Cardiovascular: Regular rate, Normal S1, Normal S2 Lungs: Positive: Clear to auscultation Abdomen: Positive: normal appearance, soft. Negative: tenderness, guarding, rigidity Genitourinary (Female): Positive: normal external genitalia Vulva: both: normal Uterus: Positive: enlarged (EFW ~ 3000). Negative: tender Adnexa: both: normal Extremities: Positive: normal - Obstetrical FHR: category 1 Cervical Dilatation: 1 Results Result Diagrams: 11/07/17 10:07 11/07/17 10:07 Abnormal lab results 11/07/17 11/07/17 11/07/17 Range/Units 10:07 10:07 10:50 WBC 12.6 H (4.5-11.0) K/mm3 Hgb 7.4 L (10.1-14.3) gm/dl Hct 26.4 L (30.3-42.9) % MCV 65 L (79-97) fl MCH 18 L (28-32) pg MCHC 28 L (30-34) % RDW 20.0 H (13.2-15.2) % Lymph % (Auto) 7.9 L (13.4-35.0) % Lymph # 1.0 L (1.2-5.4) K/mm3 Seg Neutrophils % 88.4 H (40.0-70.0) % Seg Neutrophils # 11.1 H (1.8-7.7) K/mm3 Creatinine 0.4 L (0.7-1.2) mg/dL Urine WBC (Auto) 12.0 H (0.0-6.0) /HPF All other labs normal. Assessment and Plan A: 22-year-old at 30+4 weeks with chronic hypertension -Cat 1 tracing -BPP 12/29 today (11/07/17) Issues -No PNC -Noncompliant with instructions -Hx of leaving AMA -Hx of CHTN w/ labile BP's (130's-170's/70-100's) -Oral history of seizure disorder (Should be on Keppra) -Short interval -Ptyalism -Anemia P: -Admit -Will start on IV antihypertensives -Increase her labetalol to 200 mg twice a day -Will restart her Keppra -Will start patient on magnesium per protocol -Obtain 24-hour urine protein -Hold steroid course for now -Consider MFM consultation if BP not improved - Patient Problems (1) 30 weeks gestation of Current Visit: Yes Status: Acute (2) Hypertension affecting Current Visit: Yes Status: Acute (3) No care in current Current Visit: No Status: Acute (4) Seizure disorder during Current Visit: No Status: Acute Qualifiers: Trimester: second trimester Qualified Code(s): O99.352 - Diseases of the nervous system complicating , second trimester; G40.909 - Epilepsy, unspecified, not intractable, without status epilepticus (5) Ptyalism Current Visit: Yes Status: Acute (6) Short interval between pregnancies affecting in third trimester, antepartum Current Visit: Yes Status: Acute
[2017-11-07] MEDS: LACTATED RINGERS 1,000 ML IV SCH (14:25)
[2017-11-07] MEDS ORDERED: CALCIUM GLUCONATE 1,000 MG in NACL 0.9% 100 ML IV ONE (14:30)
[2017-11-07] MEDS ORDERED: PEPCID PO SCH (15:00)
--- NOTE | 2017-11-07 15:45 | Ultrasound Report ---
FINAL REPORT EXAM: US OB FOLLOW UP HISTORY: no PNC at 31 wks TECHNIQUE: Grayscale and color doppler ultrasound of the fetus was performed. PRIORS: Ob ultrasound from 10/01/2017. FINDINGS: A single, live intrauterine fetus is present in cephalic presentation with a heart rate of 145 beats per minute. The placenta is grade 2 and anterior in location. No evidence of placenta previa. The maternal cervix is closed measuring 3.1 centimeters in length. The amniotic fluid index is 17.5 centimeters. Biparietal diameter: 31 weeks and 1 day. Head circumference: 29 weeks and 2 days. Abdominal circumference: 29 weeks and 2 days. Femur length: 30 weeks and 5 days. Estimated gestational age based on ultrasound criteria is 30 weeks and 1 day with an TAMARA of 01/15/2018. Estimated weight is at the 8th percentile. Estimated weight is 1467 grams. IMPRESSION: Live intrauterine fetus measuring at 30 weeks and 1 day with an TAMARA of 01/15/2018. Estimated weight at the 8th percentile.
[2017-11-07] MEDS: KEPPRA PO SCH ×2 (15:54→23:15)
[2017-11-07] MEDS: PRENATAL VITAMIN PO SCH (15:54)
[2017-11-07] MEDS ORDERED: ZOFRAN IV PRN (20:05)
[2017-11-07] MEDS ORDERED: XYLOCAINE TOPICAL 2% 30ML TP ONE (21:04)
[2017-11-07] MEDS: XYLOCAINE TOPICAL 2% 30ML TP PRN (21:36)
[2017-11-07] MEDS ORDERED: PHENERGAN PR ONE (22:23)
[2017-11-07] MEDS: PHENERGAN PR PRN (22:29)
[2017-11-07] MEDS: NORMODYNE PO SCH (23:16)
[2017-11-08] MEDS: XYLOCAINE TOPICAL 2% 30ML TP PRN ×2 (00:16→02:42)
[2017-11-08] MEDS ORDERED: DIFLUCAN PO ONE (00:30)
[2017-11-08] MEDS: LACTATED RINGERS 1,000 ML IV SCH (02:50)
[2017-11-08 06:41] LABS: Creatine Kinase MB 1.1 ng/mL (0.0-4.0)
[2017-11-08] MEDS ORDERED: INFUVITE 10 ML in D5LR 1,000 ML IV ONE (06:57)
[2017-11-08] MEDS ORDERED: MAGNESIUM SULFATE 40GM/1000ML 40 GM/1,000 ML BAG IV SCH (07:01)
--- NOTE | 2017-11-08 07:07 | Event Note ---
Date: 11/08/17 Complaint of chest pain this morning. EKG and enzymes negative. Still having nausea vomiting Scan shows EFW 8th percentile Plan is MFM consult and GI consult. Have also started patient on H2 blockers
[2017-11-08 07:15] LABS: BUN/Creatinine Ratio 23; Blood Urea Nitrogen 9 mg/dL (7-17); Calcium 6.8 mg/dL (8.4-10.2); Hemolysis Index 3
[2017-11-08] MEDS: PEPCID IV SCH ×3 (07:42→21:56)
[2017-11-08] MEDS: ZOFRAN IV PRN ×2 (08:35→16:20)
--- NOTE | 2017-11-08 09:15 | Gastroenterology Consultation ---
History of Present Illness - Reason for Consult Consult date: 11/08/17 N/V Requesting physician: VINI RAMOS - History of Present Illness Patient is a 22 y/o female who is 30+4 weeks gestation with PMH of asthma, HTN, seizure disorder, and non-compliance. She presented to ED with c/o lower abdominal pain and N/V. GI has been consulted for N/V. This morning patient was resting in bed w/o acute distress. She reports intermittent episodes of N/V throughout her . She states her N/V is better this am with only 1 episode of N/V overnight. She was able to eat applesauce this am w/ o difficultly per nursing. Had some CP this am with EKG and cardiac enzymes found to be negative. Admits to some mild lower abd discomfort described as cramping related to current contractions but denies fever, wt loss, SOB, dysphagia, odynophagia, signs of bleeding or LGI symptoms. No NSAID use. No hx of PUD or previous EGD. Past History Past Medical History: hypertension, seizures, other (asthma) Past Surgical History: No surgical history Social history: single, full code, other (UDS positive for marijuana). denies: smoking Medications and Allergies Allergies Allergy/AdvReac Type Severity Reaction Status Date / Time latex Allergy Severe Rash Verified 10/01/17 12:08 Home Medications Medication Instructions Recorded Confirmed Last Taken Type Labetalol [Normodyne TAB] 100 mg PO BID 09/20/17 11/07/17 11/07/17 08:00 History Ondansetron [Zofran Odt] 4 mg PO Q8HR PRN #10 tab.rapdis 09/30/17 11/07/17 2 Days Ago Rx ~11/05/17 Famotidine [Pepcid] 20 mg PO BID #60 tablet 11/08/17 Unknown Rx Labetalol [Normodyne TAB] 200 mg PO BID #60 tablet 11/08/17 Unknown Rx Active Meds: Active Medications Famotidine (Pepcid) 20 mg IV BID JANY Last Admin: 11/08/17 07:42 Dose: 20 mg Lactated Ringer's (Lactated Ringers) 1,000 mls @ 125 mls/hr IV DIRECT JANY Last Infusion: 11/08/17 07:00 Dose: 100 mls/hr Multivitamins/Minerals 10 ml/ (Dextrose/Lactated Ringer's) 1,010 mls @ 150 mls/ hr IV ONCE ONE Stop: 11/08/17 13:40 Labetalol HCl (Normodyne) 10 mg IV Q20MIN PRN PRN Reason: Blood Pressure Stop: 11/08/17 13:56 Last Admin: 11/07/17 14:45 Dose: 10 mg Labetalol HCl (Normodyne) 200 mg PO BID [facility] Last Admin: 11/07/17 23:16 Dose: 200 mg Levetiracetam (Keppra) 500 mg PO BID [facility] Last Admin: 11/07/17 23:15 Dose: 500 mg Lidocaine (Xylocaine Topical 2% 30ml) 1 applic TP PRN PRN PRN Reason: Pain Last Admin: 11/08/17 02:42 Dose: 1 applic Multivitamins/Iron/Calcium ( Vitamin) 1 each PO QDAY [facility] Last Admin: 11/07/17 15:54 Dose: 1 each Ondansetron HCl (Zofran) 8 mg IV Q8H PRN PRN Reason: Nausea And Vomiting Last Admin: 11/08/17 08:35 Dose: 8 mg Promethazine HCl (Phenergan) 25 mg MS Q6H PRN PRN Reason: Nausea And Vomiting Last Admin: 11/07/17 22:29 Dose: 25 mg Review of Systems - Review of Systems Gastrointestinal: nausea, vomiting Exam - Constitutional Vital Signs: Temp Pulse Resp BP Pulse Ox 98.2 F 84 20 138/86 99 11/08/17 05:00 11/08/17 09:15 11/08/17 05:00 11/08/17 08:10 11/08/17 09:15 - Labs CBC & Chem 7: 11/07/17 10:07 11/08/17 01:01 Lab Results: Laboratory Results - last 24 hr 11/07/17 11/07/17 11/07/17 10:00 10:07 10:07 WBC 12.6 H RBC 4.04 Hgb 7.4 L Hct 26.4 L MCV 65 L MCH 18 L MCHC 28 L RDW 20.0 H Plt Count 425 Lymph % (Auto) 7.9 L Norton % (Auto) 3.3 Eos % (Auto) 0.1 Baso % (Auto) 0.3 Lymph # 1.0 L Norton # 0.4 Eos # 0.0 Baso # 0.0 Seg Neutrophils % 88.4 H Seg Neutrophils # 11.1 H Sodium Potassium Chloride Carbon Dioxide Anion Gap BUN Creatinine Estimated GFR BUN/Creatinine Ratio Glucose Uric Acid Calcium Magnesium AST ALT Lactate Dehydrogenase Total Creatine Kinase CK-MB (CK-2) CK-MB (CK-2) Rel Index Troponin T Urine Color Urine Turbidity Urine pH Ur Specific [place] Urine Protein Urine Glucose (UA) Urine Ketones Urine Blood Urine Nitrite Urine Bilirubin Urine Urobilinogen Ur Leukocyte Esterase Urine WBC (Auto) Urine RBC (Auto) U Epithel Cells (Auto) Urine Bacteria (Auto) Urine Mucus Urine Opiates Screen Urine Methadone Screen Ur Barbiturates Screen Ur Phencyclidine Scrn Ur Amphetamines Screen U Benzodiazepines Scrn Urine Cocaine Screen U Marijuana (THC) Screen Drugs of Abuse Note RPR Hep Bs Antigen HIV 1&2 Antibody Rapid HIV P24 Antigen Rubella IgG Antibody Fibronectin Negative Blood Type A POSITIVE Antibody Screen Negative 11/07/17 11/07/17 11/07/17 10:07 10:07 10:07 WBC RBC Hgb Hct MCV MCH MCHC RDW Plt Count Lymph % (Auto) Norton % (Auto) Eos % (Auto) Baso % (Auto) Lymph # Norton # Eos # Baso # Seg Neutrophils % Seg Neutrophils # Sodium Potassium Chloride Carbon Dioxide Anion Gap BUN Creatinine Estimated GFR BUN/Creatinine Ratio Glucose Uric Acid Calcium Magnesium AST ALT Lactate Dehydrogenase Total Creatine Kinase CK-MB (CK-2) CK-MB (CK-2) Rel Index Troponin T Urine Color Urine Turbidity Urine pH Ur Specific [place] Urine Protein Urine Glucose (UA) Urine Ketones Urine Blood Urine Nitrite Urine Bilirubin Urine Urobilinogen Ur Leukocyte Esterase Urine WBC (Auto) Urine RBC (Auto) U Epithel Cells (Auto) Urine Bacteria (Auto) Urine Mucus Urine Opiates Screen Urine Methadone Screen Ur Barbiturates Screen Ur Phencyclidine Scrn Ur Amphetamines Screen U Benzodiazepines Scrn Urine Cocaine Screen U Marijuana (THC) Screen Drugs of Abuse Note RPR Nonreactive Hep Bs Antigen Non-reactive HIV 1&2 Antibody Rapid HIV P24 Antigen Rubella IgG Antibody Immune Fibronectin Blood Type Antibody Screen 11/07/17 11/07/17 11/07/17 10:07 10:07 10:50 WBC RBC Hgb Hct MCV MCH MCHC RDW Plt Count Lymph % (Auto) Norton % (Auto) Eos % (Auto) Baso % (Auto) Lymph # Norton # Eos # Baso # Seg Neutrophils % Seg Neutrophils # Sodium Potassium Chloride Carbon Dioxide Anion Gap BUN Creatinine 0.4 L Estimated GFR > 60 BUN/Creatinine Ratio Glucose Uric Acid 5.5 Calcium Magnesium AST 18 ALT 9 Lactate Dehydrogenase 164 Total Creatine Kinase CK-MB (CK-2) CK-MB (CK-2) Rel Index Troponin T Urine Color Yellow Urine Turbidity Clear Urine pH 5.0 Ur Specific [place] 1.025 Urine Protein 30 mg/dl Urine Glucose (UA) 50 Urine Ketones 80 Urine Blood Neg Urine Nitrite Neg Urine Bilirubin Neg Urine Urobilinogen 2.0 Ur Leukocyte Esterase Sm Urine WBC (Auto) 12.0 H Urine RBC (Auto) 3.0 U Epithel Cells (Auto) 1.0 Urine Bacteria (Auto) 1+ Urine Mucus 3+ Urine Opiates Screen Urine Methadone Screen Ur Barbiturates Screen Ur Phencyclidine Scrn Ur Amphetamines Screen U Benzodiazepines Scrn Urine Cocaine Screen U Marijuana (THC) Screen Drugs of Abuse Note RPR Hep Bs Antigen HIV 1&2 Antibody Rapid Non react HIV P24 Antigen Non react Rubella IgG Antibody Fibronectin Blood Type Antibody Screen 11/07/17 11/07/17 11/08/17 10:50 18:10 01:01 WBC RBC Hgb Hct MCV MCH MCHC RDW Plt Count Lymph % (Auto) [place] % (Auto) Eos % (Auto) Baso % (Auto) Lymph # [place] # Eos # Baso # Seg Neutrophils % Seg Neutrophils # Sodium 136 L Potassium 3.7 Chloride 97.7 L Carbon Dioxide 21 L Anion Gap 21 BUN 9 Creatinine 0.4 L Estimated GFR > 60 BUN/Creatinine Ratio 23 Glucose 102 H Uric Acid Calcium 6.8 L Magnesium 3.90 H 5.80 H AST ALT Lactate Dehydrogenase Total Creatine Kinase CK-MB (CK-2) CK-MB (CK-2) Rel Index Troponin T Urine Color Urine Turbidity Urine pH Ur Specific [place] Urine Protein Urine Glucose (UA) Urine Ketones Urine Blood Urine Nitrite Urine Bilirubin Urine Urobilinogen Ur Leukocyte Esterase Urine WBC (Auto) Urine RBC (Auto) U Epithel Cells (Auto) Urine Bacteria (Auto) Urine Mucus Urine Opiates Screen Presumptive negative Urine Methadone Screen Presumptive negative Ur Barbiturates Screen Presumptive negative Ur Phencyclidine Scrn Presumptive negative Ur Amphetamines Screen Presumptive negative U Benzodiazepines Scrn Presumptive negative Urine Cocaine Screen Presumptive negative U Marijuana (THC) Screen Presumptive positive Drugs of Abuse Note Disclamer RPR Hep Bs Antigen HIV 1&2 Antibody Rapid HIV P24 Antigen Rubella IgG Antibody Fibronectin Blood Type Antibody Screen 11/08/17 11/08/17 05:58 05:58 WBC RBC Hgb Hct MCV MCH MCHC RDW Plt Count Lymph % (Auto) [place] % (Auto) Eos % (Auto) Baso % (Auto) Lymph # [place] # Eos # Baso # Seg Neutrophils % Seg Neutrophils # Sodium Potassium Chloride Carbon Dioxide Anion Gap BUN Creatinine Estimated GFR BUN/Creatinine Ratio Glucose Uric Acid Calcium Magnesium 6.30 H AST ALT Lactate Dehydrogenase Total Creatine Kinase 51 CK-MB (CK-2) 1.1 CK-MB (CK-2) Rel Index 2.1 Troponin T < 0.010 Urine Color Urine Turbidity Urine pH Ur Specific [place] Urine Protein Urine Glucose (UA) Urine Ketones Urine Blood Urine Nitrite Urine Bilirubin Urine Urobilinogen Ur Leukocyte Esterase Urine WBC (Auto) Urine RBC (Auto) U Epithel Cells (Auto) Urine Bacteria (Auto) Urine Mucus Urine Opiates Screen Urine Methadone Screen Ur Barbiturates Screen Ur Phencyclidine Scrn Ur Amphetamines Screen U Benzodiazepines Scrn Urine Cocaine Screen U Marijuana (THC) Screen Drugs of Abuse Note RPR Hep Bs Antigen HIV 1&2 Antibody Rapid HIV P24 Antigen Rubella IgG Antibody Fibronectin Blood Type Antibody Screen Assessment and Plan 1.N/V -afebrile -WBC 12.6 (urine culture pending) -AST/ALT WNL -lipase/amylase pending -etiology unclear- likely due to hyperemesis gravidarum vs other -clinically, patient reports N/V is now improving -will order abd U/S to r/o any biliary process -CMP in am -continue clear liquids- okay to advance to GI soft diet if tolerated -continue pepcid, antiemetics, and supportive care -further recommendations to follow
--- NOTE | 2017-11-08 09:36 | Progress Note ---
Assessment and Plan - Patient Problems (1) 30 weeks gestation of Current Visit: Yes Status: Acute (2) Chronic hypertension affecting Current Visit: Yes Status: Acute Plan to address problem: Magnesium was discontinued after 24 hrs. Will continue PO Labetolol and montior BP. (3) UTI (urinary tract infection) Current Visit: Yes Status: Acute Plan to address problem: Send urine culture. IV ancef. (4) contractions Current Visit: Yes Status: Acute Plan to address problem: Patient had magnesium sulfate. Will give celestone for FLM (Patient said that she does not recall being given steroid for FLM during her prior admissions). IV bolus. monitoring. (5) Ptyalism Current Visit: Yes Status: Acute Plan to address problem: Zofran and IV fluid given. Nausea has improved. Amylase, lipase, thyroid profile ordered. Gall bladder sonogram ordered. GI consult done. (6) Anemia Current Visit: Yes Status: Acute Qualifiers: Anemia type: iron deficiency Subjective - Subjective Date of service: 11/08/17 Principal diagnosis: 31 weeks gestation with elevated BP, nausea Interval history: Patient was admitted yesterday at 30 weeks and 6 days for nausea, vomiting and elevated BP. She has not received any care. She has a history of chronic HTN and seizure disorder. She was on keppra and has not taken it for a long time. She was admitted here earlier during this and was asked to follow up with neurology which she has not done yet. She denies any pain, bleeding or fluid leakage. She reports good movement. She was given magnesium which was discontinued this AM. She is on PO labetolol. tracing has been CAT1. [place] showed contractions which she does not feel. Objective - Vital Signs Vital Signs: Vital Signs - 12hr 11/07/17 11/07/17 11/07/17 21:44 21:52 21:56 Temperature Pulse Rate 96 H 98 H 99 H Respiratory Rate Blood Pressure 141/98 148/79 O2 Sat by Pulse 100 Oximetry 11/07/17 11/07/17 11/07/17 21:57 22:02 22:06 Temperature Pulse Rate 98 H 99 H 99 H Respiratory Rate Blood Pressure O2 Sat by Pulse 100 99 91 Oximetry 11/07/17 11/07/17 11/07/17 22:07 22:10 22:12 Temperature Pulse Rate 93 H 91 H 88 Respiratory Rate Blood Pressure 142/70 O2 Sat by Pulse 100 100 Oximetry 11/07/17 11/07/17 11/07/17 22:17 22:22 22:27 Temperature Pulse Rate 92 H 96 H 90 Respiratory Rate Blood Pressure O2 Sat by Pulse 100 100 100 Oximetry 11/07/17 11/07/17 11/07/17 22:32 22:37 22:42 Temperature Pulse Rate 96 H 98 H 87 Respiratory Rate Blood Pressure O2 Sat by Pulse 100 99 100 Oximetry 11/07/17 11/07/17 11/07/17 22:47 22:52 22:57 Temperature Pulse Rate 93 H 90 89 Respiratory Rate Blood Pressure O2 Sat by Pulse 100 100 100 Oximetry 11/07/17 11/07/17 11/07/17 23:02 23:07 23:10 Temperature Pulse Rate 88 92 H 93 H Respiratory Rate Blood Pressure 146/86 O2 Sat by Pulse 100 100 Oximetry 11/07/17 11/07/17 11/07/17 23:12 23:17 23:22 Temperature Pulse Rate 95 H 95 H 109 H Respiratory Rate Blood Pressure O2 Sat by Pulse 100 100 99 Oximetry 11/07/17 11/07/17 11/07/17 23:27 23:32 23:37 Temperature Pulse Rate 93 H 97 H 95 H Respiratory Rate Blood Pressure O2 Sat by Pulse 100 100 100 Oximetry 11/07/17 11/07/17 11/07/17 23:42 23:47 23:52 Temperature Pulse Rate 97 H 94 H 106 H Respiratory Rate Blood Pressure O2 Sat by Pulse 100 100 100 Oximetry 11/07/17 11/08/17 11/08/17 23:57 00:02 00:07 Temperature Pulse Rate 96 H 95 H 91 H Respiratory Rate Blood Pressure O2 Sat by Pulse 100 100 100 Oximetry 11/08/17 11/08/17 11/08/17 00:10 00:12 00:47 Temperature 98.3 F Pulse Rate 90 97 H Respiratory 16 Rate Blood Pressure 135/83 O2 Sat by Pulse 100 Oximetry 11/08/17 11/08/17 11/08/17 02:11 02:48 02:53 Temperature Pulse Rate 93 H 105 H 98 H Respiratory Rate Blood Pressure 152/90 O2 Sat by Pulse 100 100 Oximetry 11/08/17 11/08/17 11/08/17 02:58 03:03 03:08 Temperature Pulse Rate 94 H 97 H 99 H Respiratory Rate Blood Pressure O2 Sat by Pulse 100 100 100 Oximetry 11/08/17 11/08/17 11/08/17 03:10 03:13 03:15 Temperature Pulse Rate 102 H 98 H 96 H Respiratory Rate Blood Pressure 163/88 145/72 O2 Sat by Pulse 100 Oximetry 11/08/17 11/08/17 11/08/17 03:18 03:23 03:28 Temperature Pulse Rate 93 H 88 90 Respiratory Rate Blood Pressure O2 Sat by Pulse 100 99 100 Oximetry 11/08/17 11/08/17 11/08/17 03:33 03:38 03:43 Temperature Pulse Rate 95 H 87 91 H Respiratory Rate Blood Pressure O2 Sat by Pulse 99 100 99 Oximetry 11/08/17 11/08/17 11/08/17 03:48 03:53 04:04 Temperature Pulse Rate 89 88 98 H Respiratory Rate Blood Pressure O2 Sat by Pulse 100 99 99 Oximetry 11/08/17 11/08/17 11/08/17 04:09 04:11 04:14 Temperature Pulse Rate 91 H 93 H 93 H Respiratory Rate Blood Pressure 134/93 O2 Sat by Pulse 100 98 Oximetry 11/08/17 11/08/17 11/08/17 04:19 04:24 04:29 Temperature Pulse Rate 88 89 89 Respiratory Rate Blood Pressure O2 Sat by Pulse 99 100 100 Oximetry 11/08/17 11/08/17 11/08/17 04:34 04:39 04:44 Temperature Pulse Rate 89 88 91 H Respiratory Rate Blood Pressure O2 Sat by Pulse 100 100 99 Oximetry 11/08/17 11/08/17 11/08/17 04:49 04:54 04:59 Temperature Pulse Rate 86 89 89 Respiratory Rate Blood Pressure O2 Sat by Pulse 99 99 99 Oximetry 11/08/17 11/08/17 11/08/17 05:00 05:04 05:09 Temperature 98.2 F Pulse Rate 86 90 Respiratory 20 Rate Blood Pressure O2 Sat by Pulse 99 99 Oximetry 11/08/17 11/08/17 11/08/17 05:11 05:14 05:18 Temperature Pulse Rate 103 H 91 H 102 H Respiratory Rate Blood Pressure 159/95 O2 Sat by Pulse 99 93 Oximetry 06/18/18 06/18/18 06/18/18 05:19 05:21 05:24 Temperature Pulse Rate 93 H 89 93 H Respiratory Rate Blood Pressure 156/95 O2 Sat by Pulse 100 98 Oximetry 11/08/17 11/08/17 11/08/17 05:29 05:34 05:39 Temperature Pulse Rate 84 84 83 Respiratory Rate Blood Pressure O2 Sat by Pulse 98 98 99 Oximetry 11/08/17 11/08/17 11/08/17 05:44 05:49 05:54 Temperature Pulse Rate 82 108 H 83 Respiratory Rate Blood Pressure O2 Sat by Pulse 99 99 99 Oximetry 11/08/17 11/08/17 11/08/17 05:59 06:04 06:09 Temperature Pulse Rate 83 92 H 78 Respiratory Rate Blood Pressure O2 Sat by Pulse 98 100 98 Oximetry 11/08/17 11/08/17 11/08/17 06:10 06:14 06:19 Temperature Pulse Rate 82 73 87 Respiratory Rate Blood Pressure 130/88 O2 Sat by Pulse 99 98 Oximetry 11/08/17 11/08/17 11/08/17 06:24 06:30 06:34 Temperature Pulse Rate 90 82 84 Respiratory Rate Blood Pressure O2 Sat by Pulse 99 98 98 Oximetry 11/08/17 11/08/17 11/08/17 06:39 06:44 06:49 Temperature Pulse Rate 85 85 85 Respiratory Rate Blood Pressure O2 Sat by Pulse 98 98 98 Oximetry 11/08/17 11/08/17 11/08/17 06:54 07:00 07:04 Temperature Pulse Rate 83 86 83 Respiratory Rate Blood Pressure O2 Sat by Pulse 98 98 97 Oximetry 11/08/17 11/08/17 11/08/17 07:09 07:10 07:14 Temperature Pulse Rate 81 82 81 Respiratory Rate Blood Pressure 138/86 O2 Sat by Pulse 97 97 Oximetry 11/08/17 11/08/17 11/08/17 07:19 07:25 07:30 Temperature Pulse Rate 89 76 73 Respiratory Rate Blood Pressure O2 Sat by Pulse 99 99 99 Oximetry 11/08/17 11/08/17 11/08/17 07:35 07:39 07:44 Temperature Pulse Rate 80 80 94 H Respiratory Rate Blood Pressure O2 Sat by Pulse 99 99 98 Oximetry 11/08/17 11/08/17 11/08/17 07:49 07:55 07:59 Temperature Pulse Rate 80 84 82 Respiratory Rate Blood Pressure O2 Sat by Pulse 97 98 99 Oximetry 11/08/17 11/08/17 11/08/17 08:05 08:10 08:15 Temperature Pulse Rate 91 H 101 H 69 Respiratory Rate Blood Pressure 138/86 O2 Sat by Pulse 98 99 100 Oximetry 11/08/17 11/08/17 11/08/17 08:20 08:25 08:30 Temperature Pulse Rate 81 95 H 82 Respiratory Rate Blood Pressure O2 Sat by Pulse 99 100 100 Oximetry 11/08/17 11/08/17 11/08/17 08:35 08:40 08:45 Temperature Pulse Rate 68 69 94 H Respiratory Rate Blood Pressure O2 Sat by Pulse 100 100 100 Oximetry 11/08/17 11/08/17 11/08/17 08:46 08:50 08:55 Temperature Pulse Rate 61 66 76 Respiratory Rate Blood Pressure O2 Sat by Pulse 88 100 100 Oximetry 11/08/17 11/08/17 11/08/17 09:00 09:05 09:10 Temperature Pulse Rate 86 84 84 Respiratory Rate Blood Pressure O2 Sat by Pulse 99 99 99 Oximetry 11/08/17 11/08/17 11/08/17 09:15 09:19 09:25 Temperature Pulse Rate 84 81 86 Respiratory Rate Blood Pressure O2 Sat by Pulse 99 99 98 Oximetry 11/08/17 09:30 Temperature Pulse Rate 82 Respiratory Rate Blood Pressure O2 Sat by Pulse 98 Oximetry - Exam Cardiovascular: Normal S1, Normal S2 Lungs: Clear to auscultation FHR: category 1 Uterine Contraction Monitor Mode: External Cervical Dilatation: 1 Cervical Effacement Percentage: 0 station: -3 Uterine Contraction Pattern: Irregular Uterine Contraction Intensity: Mild Deep Tendon Reflex Grade: Normal +2 - Labs Labs: Abnormal Labs 11/07/17 11/07/17 11/07/17 10:07 10:07 10:50 WBC 12.6 H Hgb 7.4 L Hct 26.4 L MCV 65 L MCH 18 L MCHC 28 L RDW 20.0 H Lymph % (Auto) 7.9 L Lymph # 1.0 L Seg Neutrophils % 88.4 H Seg Neutrophils # 11.1 H Sodium Chloride Carbon Dioxide Creatinine 0.4 L Glucose Calcium Magnesium Urine WBC (Auto) 12.0 H 11/07/17 11/08/17 11/08/17 18:10 01:01 05:58 WBC Hgb Hct MCV MCH MCHC RDW Lymph % (Auto) Lymph # Seg Neutrophils % Seg Neutrophils # Sodium 136 L Chloride 97.7 L Carbon Dioxide 21 L Creatinine 0.4 L Glucose 102 H Calcium 6.8 L Magnesium 3.90 H 5.80 H 6.30 H Urine WBC (Auto) Laboratory Results - last 24 hr 11/07/17 11/07/17 11/07/17 10:00 10:07 10:07 WBC 12.6 H RBC 4.04 Hgb 7.4 L Hct 26.4 L MCV 65 L MCH 18 L MCHC 28 L RDW 20.0 H Plt Count 425 Lymph % (Auto) 7.9 L [place] % (Auto) 3.3 Eos % (Auto) 0.1 Baso % (Auto) 0.3 Lymph # 1.0 L [place] # 0.4 Eos # 0.0 Baso # 0.0 Seg Neutrophils % 88.4 H Seg Neutrophils # 11.1 H Sodium Potassium Chloride Carbon Dioxide Anion Gap BUN Creatinine Estimated GFR BUN/Creatinine Ratio Glucose Uric Acid Calcium Magnesium AST ALT Lactate Dehydrogenase Total Creatine Kinase CK-MB (CK-2) CK-MB (CK-2) Rel Index Troponin T Urine Color Urine Turbidity Urine pH Ur Specific [place] Urine Protein Urine Glucose (UA) Urine Ketones Urine Blood Urine Nitrite Urine Bilirubin Urine Urobilinogen Ur Leukocyte Esterase Urine WBC (Auto) Urine RBC (Auto) U Epithel Cells (Auto) Urine Bacteria (Auto) Urine Mucus Urine Opiates Screen Urine Methadone Screen Ur Barbiturates Screen Ur Phencyclidine Scrn Ur Amphetamines Screen U Benzodiazepines Scrn Urine Cocaine Screen U Marijuana (THC) Screen Drugs of Abuse Note RPR Hep Bs Antigen HIV 1&2 Antibody Rapid HIV P24 Antigen Rubella IgG Antibody Fibronectin Negative Blood Type A POSITIVE Antibody Screen Negative 11/07/17 11/07/17 11/07/17 10:07 10:07 10:07 WBC RBC Hgb Hct MCV MCH MCHC RDW Plt Count Lymph % (Auto) [place] % (Auto) Eos % (Auto) Baso % (Auto) Lymph # [place] # Eos # Baso # Seg Neutrophils % Seg Neutrophils # Sodium Potassium Chloride Carbon Dioxide Anion Gap BUN Creatinine Estimated GFR BUN/Creatinine Ratio Glucose Uric Acid Calcium Magnesium AST ALT Lactate Dehydrogenase Total Creatine Kinase CK-MB (CK-2) CK-MB (CK-2) Rel Index Troponin T Urine Color Urine Turbidity Urine pH Ur Specific [place] Urine Protein Urine Glucose (UA) Urine Ketones Urine Blood Urine Nitrite Urine Bilirubin Urine Urobilinogen Ur Leukocyte Esterase Urine WBC (Auto) Urine RBC (Auto) U Epithel Cells (Auto) Urine Bacteria (Auto) Urine Mucus Urine Opiates Screen Urine Methadone Screen Ur Barbiturates Screen Ur Phencyclidine Scrn Ur Amphetamines Screen U Benzodiazepines Scrn Urine Cocaine Screen U Marijuana (THC) Screen Drugs of Abuse Note RPR Nonreactive Hep Bs Antigen Non-reactive HIV 1&2 Antibody Rapid HIV P24 Antigen Rubella IgG Antibody Immune Fibronectin Blood Type Antibody Screen 11/07/17 11/07/17 11/07/17 10:07 10:07 10:50 WBC RBC Hgb Hct MCV MCH MCHC RDW Plt Count Lymph % (Auto) [place] % (Auto) Eos % (Auto) Baso % (Auto) Lymph # [place] # Eos # Baso # Seg Neutrophils % Seg Neutrophils # Sodium Potassium Chloride Carbon Dioxide Anion Gap BUN Creatinine 0.4 L Estimated GFR > 60 BUN/Creatinine Ratio Glucose Uric Acid 5.5 Calcium Magnesium AST 18 ALT 9 Lactate Dehydrogenase 164 Total Creatine Kinase CK-MB (CK-2) CK-MB (CK-2) Rel Index Troponin T Urine Color Yellow Urine Turbidity Clear Urine pH 5.0 Ur Specific [place] 1.025 Urine Protein 30 mg/dl Urine Glucose (UA) 50 Urine Ketones 80 Urine Blood Neg Urine Nitrite Neg Urine Bilirubin Neg Urine Urobilinogen 2.0 Ur Leukocyte Esterase Sm Urine WBC (Auto) 12.0 H Urine RBC (Auto) 3.0 U Epithel Cells (Auto) 1.0 Urine Bacteria (Auto) 1+ Urine Mucus 3+ Urine Opiates Screen Urine Methadone Screen Ur Barbiturates Screen Ur Phencyclidine Scrn Ur Amphetamines Screen U Benzodiazepines Scrn Urine Cocaine Screen U Marijuana (THC) Screen Drugs of Abuse Note RPR Hep Bs Antigen HIV 1&2 Antibody Rapid Non react HIV P24 Antigen Non react Rubella IgG Antibody Fibronectin Blood Type Antibody Screen 11/07/17 11/07/17 11/08/17 10:50 18:10 01:01 WBC RBC Hgb Hct MCV MCH MCHC RDW Plt Count Lymph % (Auto) [place] % (Auto) Eos % (Auto) Baso % (Auto) Lymph # [place] # Eos # Baso # Seg Neutrophils % Seg Neutrophils # Sodium 136 L Potassium 3.7 Chloride 97.7 L Carbon Dioxide 21 L Anion Gap 21 BUN 9 Creatinine 0.4 L Estimated GFR > 60 BUN/Creatinine Ratio 23 Glucose 102 H Uric Acid Calcium 6.8 L Magnesium 3.90 H 5.80 H AST ALT Lactate Dehydrogenase Total Creatine Kinase CK-MB (CK-2) CK-MB (CK-2) Rel Index Troponin T Urine Color Urine Turbidity Urine pH Ur Specific [place] Urine Protein Urine Glucose (UA) Urine Ketones Urine Blood Urine Nitrite Urine Bilirubin Urine Urobilinogen Ur Leukocyte Esterase Urine WBC (Auto) Urine RBC (Auto) U Epithel Cells (Auto) Urine Bacteria (Auto) Urine Mucus Urine Opiates Screen Presumptive negative Urine Methadone Screen Presumptive negative Ur Barbiturates Screen Presumptive negative Ur Phencyclidine Scrn Presumptive negative Ur Amphetamines Screen Presumptive negative U Benzodiazepines Scrn Presumptive negative Urine Cocaine Screen Presumptive negative U Marijuana (THC) Screen Presumptive positive Drugs of Abuse Note Disclamer RPR Hep Bs Antigen HIV 1&2 Antibody Rapid HIV P24 Antigen Rubella IgG Antibody Fibronectin Blood Type Antibody Screen 11/08/17 11/08/17 05:58 05:58 WBC RBC Hgb Hct MCV MCH MCHC RDW Plt Count Lymph % (Auto) [place] % (Auto) Eos % (Auto) Baso % (Auto) Lymph # [place] # Eos # Baso # Seg Neutrophils % Seg Neutrophils # Sodium Potassium Chloride Carbon Dioxide Anion Gap BUN Creatinine Estimated GFR BUN/Creatinine Ratio Glucose Uric Acid Calcium Magnesium 6.30 H AST ALT Lactate Dehydrogenase Total Creatine Kinase 51 CK-MB (CK-2) 1.1 CK-MB (CK-2) Rel Index 2.1 Troponin T < 0.010 Urine Color Urine Turbidity Urine pH Ur Specific [place] Urine Protein Urine Glucose (UA) Urine Ketones Urine Blood Urine Nitrite Urine Bilirubin Urine Urobilinogen Ur Leukocyte Esterase Urine WBC (Auto) Urine RBC (Auto) U Epithel Cells (Auto) Urine Bacteria (Auto) Urine Mucus Urine Opiates Screen Urine Methadone Screen Ur Barbiturates Screen Ur Phencyclidine Scrn Ur Amphetamines Screen U Benzodiazepines Scrn Urine Cocaine Screen U Marijuana (THC) Screen Drugs of Abuse Note RPR Hep Bs Antigen HIV 1&2 Antibody Rapid HIV P24 Antigen Rubella IgG Antibody Fibronectin Blood Type Antibody Screen
[2017-11-08] MEDS ORDERED: ANCEF/STERILE WATER 2 GM/20 ML 2 GM/20 ML SYRINGE IV NR (10:00)
[2017-11-08] MEDS ORDERED: ceFAZolin 2 GM in NACL 0.9% 100 ML IV SCH (10:00)
[2017-11-08] MEDS: KEPPRA PO SCH ×2 (10:27→21:56)
[2017-11-08] MEDS: NORMODYNE PO SCH ×2 (10:28→21:54)
[2017-11-08] MEDS: PRENATAL VITAMIN PO SCH (10:29)
[2017-11-08] MEDS: PHENERGAN PR PRN ×2 (10:40→18:48)
[2017-11-08] MEDS: ANCEF/STERILE WATER 2 GM/20 ML 2 GM/20 ML SYRINGE IV SCH ×2 (10:43→18:19)
[2017-11-08 11:11] LABS: Lipase 159 units/L (13-60)
--- NOTE | 2017-11-08 17:12 | Consultation ---
History of Present Illness Consult date: 11/08/17 Requesting physician: ANNA SANCHEZ Reason for consult: gestational hypertension History of present illness: CONSULTATION To: Dr. Sanchez & Clyde et lupe, From: Sin Carranza M.D. RE: BLACK BLAND (: [phone] ) IUP at 30 weeks Chronic hypertension, rule out preeclampsia Nausea and vomiting resolved Elevated Amylase and Lipase DATE: Wednesday, November 08, 2017 As you are aware, this is a 22 year old para 1112 who is currently at 30 weeks 1 days gestation based on an TAMARA of 01/13/18 Patient has been hospitalized due to nausea and voming as well as elevated blood pressure noted yesterday on thought to be due to early onset preeclampsia Patient has had no care and was previously hospitalized at [facility] due to elevated blood pressure in September. She signed out AMA at that time. Patient was previously on Labetalol and Keppra but has NOT been taking Keppra. Following admission she was placed on Magnesium sulfate. Her 24 hour urine is pending. Patient currently DENIES dizziness or blurred vision. Patient ADMITS to intermittent headache before and during admission,. PAST OBSTETRICAL HISTORY: See report in patients chart. 2016: at 35 weeks. BW: 5 pounds 5 oz 2017: at 32 weeks. BW: 3 pounds 4 oz. PAST MEDICAL HISTORY: See reports in patient's chart. ULTRASOUND AT [facility]: See finding in the chart.. IUP at ~ 30 weeks. EFW: 1467 gm. 8th percentile. EDVIN: 17.9 cm RECENT BLOOD PRESSURES: Admission blood pressure: 178/101, 161/100 Current Blood pressure: 149/92, 150/89, 131/72 AVAILABLE LABS: 24 HOUR URINE: 765 mg, UA: 30 mg/dl CBC: WBC: 12.6 HGB: 7.4 HCT: 26.4 PLT: 425 LFTs: AST: 18 ALT: 9 Amylase: 231 Lipase: 159 Tox screen: (+) Marijuana (THC) Past History Past Medical History: asthma, hypertension, seizure Past Surgical History: no surgical history [employer] History: chlamydia, gonorrhea. denies: hepatitis B, hepatitis C, HIV, syphilis, trichomonas - Obstetrical History : 4 Medications and Allergies Allergies Allergy/AdvReac Type Severity Reaction Status Date / Time latex Allergy Severe Rash Verified 10/01/17 12:08 Home Medications Medication Instructions Recorded Confirmed Last Taken Type Labetalol [Normodyne TAB] 100 mg PO BID 09/20/17 11/07/17 11/07/17 08:00 History Ondansetron [Zofran Odt] 4 mg PO Q8HR PRN #10 tab.rapdis 09/30/17 11/07/17 2 Days Ago Rx ~11/05/17 Famotidine [Pepcid] 20 mg PO BID #60 tablet 11/08/17 Unknown Rx Labetalol [Normodyne TAB] 200 mg PO BID #60 tablet 11/08/17 Unknown Rx Active Meds: Active Medications Famotidine (Pepcid) 20 mg IV BID [facility] Last Admin: 11/08/17 16:09 Dose: Not Given Lactated Ringer's (Lactated Ringers) 1,000 mls @ 125 mls/hr IV DIRECT [facility] Last Infusion: 11/08/17 07:00 Dose: 100 mls/hr Cefazolin Sodium (Ancef/Sterile Water 2 Gm/20 Ml) 2 gm in 20 mls @ 120 mls/hr IV Q8H [facility] Last Admin: 11/08/17 10:43 Dose: 120 mls/hr Labetalol HCl (Normodyne) 200 mg PO BID [facility] Last Admin: 11/08/17 10:28 Dose: 200 mg Levetiracetam (Keppra) 500 mg PO BID [facility] Last Admin: 11/08/17 10:27 Dose: 500 mg Lidocaine (Xylocaine Topical 2% 30ml) 1 applic TP PRN PRN PRN Reason: Pain Last Admin: 11/08/17 02:42 Dose: 1 applic Multivitamins/Iron/Calcium ( Vitamin) 1 each PO QDAY [facility] Last Admin: 11/08/17 10:29 Dose: 1 each Ondansetron HCl (Zofran) 8 mg IV Q8H PRN PRN Reason: Nausea And Vomiting Last Admin: 11/08/17 16:20 Dose: 8 mg Promethazine HCl (Phenergan) 25 mg DC Q6H PRN PRN Reason: Nausea And Vomiting Last Admin: 11/08/17 10:40 Dose: 25 mg - Vital Signs Vital signs: Vital Signs Pulse BP 106 H 178/101 11/07/17 09:11 11/07/17 09:11 Temp Pulse Resp BP Pulse Ox 98.4 F 86 18 152/88 89 11/08/17 11:51 11/08/17 17:10 11/08/17 11:51 11/08/17 17:10 11/08/17 11:04 Results Result Diagrams: 11/07/17 10:07 11/08/17 01:01 Abnormal lab results 11/07/17 11/08/17 11/08/17 Range/Units 18:10 01:01 05:58 Sodium 136 L (137-145) mmol/L Chloride 97.7 L (98-107) mmol/L Carbon Dioxide 21 L (22-30) mmol/L Creatinine 0.4 L (0.7-1.2) mg/dL Glucose 102 H (65-100) mg/dL Calcium 6.8 L (8.4-10.2) mg/dL Magnesium 3.90 H 5.80 H 6.30 H (1.7-2.3) mg/dL Amylase (27-131) units/L Lipase (13-60) units/L TSH (0.270-4.200) mlU/mL Ur Total Protein 24 Hr (2-200) Urine Total Protein (5-11.8) mg/dL 11/08/17 11/08/17 11/08/17 Range/Units 09:58 09:58 14:00 Sodium (137-145) mmol/L Chloride (98-107) mmol/L Carbon Dioxide (22-30) mmol/L Creatinine (0.7-1.2) mg/dL Glucose (65-100) mg/dL Calcium (8.4-10.2) mg/dL Magnesium (1.7-2.3) mg/dL Amylase 231 H (27-131) units/L Lipase 159 H (13-60) units/L TSH 0.145 L (0.270-4.200) mlU/mL Ur Total Protein 24 Hr 765.00 H (2-200) Urine Total Protein 51 H (5-11.8) mg/dL All other labs normal. Assessment and Plan ASSESSMENT IUP at 30 weeks . Chronic hypertension, rule out preeclampsia Nausea and vomiting now resolved Risk for delivery due to suspected preeclampsia Elevated blood pressure of presentation. Elevated Amylase and Lipase Rule out Urinary tract infection DISCUSSION: I've indicated to the patient that there are a number of medical complications which would require early delivery as a general rule for any gestation. I've indicated that unexplained vaginal bleeding, spontaneous labor, - induced hypertension and other complications would require delivery before an elective delivery. I've also indicated the recommendations from the [employer] published in the ACO[employer] committee opinion number 560 regarding early term delivery. As well as recent studies from the Journal Obstetrics and Gynecology published in May [address] Rogers et al indicate that for chronic hypertension with signs of severe preelcampsia should be delivered after 34 weeks of gestation. RECOMMENDATIONS: 1. Given her gestational age we would recommend DELIVERY in the presence of any findings which would suggest SEVERE preeclampsia. 2. Restart Labetalol and Keppra. 3. Agree with Gastroenterology consultation. 4. Obtain abdominal ultrasound 5. GI to follow-up. 6. At present (based on her CHTN, labile blood pressure and increased protein on her 24 hour urine) we would recommend further hospitalization on the antepartum unit at [facility]. 7. Kindly follow-up the results for a 24-hour urine for protein and creatinine clearance 8. Patient has previously had steroids to enhance lung maturation no rescue dose is inidated at this time. 9. We agree with magnesium sulfate for eclampsia prophylaxis and neuroprotection. Completed. 10. We will recommend Labetalol for blood pressure with Hydralazine PRN for continued elevated blood pressure. 11. At 30-31 weeks gestation; it would appear that there is some benefit to an expectant management protocol to prolong gestation in order to improve outcome without increasing maternal morbidity. In a patient with MILD preeclampsia we recommend DELIVERY at 37 weeks. In a patient with SEVERE preeclampsia we recommend DELIVERY either AT DIAGNOSIS or at 34 weeks gestation. Reference: REFERENCE: Medically indicated late- and early-term deliveries. Committee Opinion No. 560. [employer]. Obstet Gynecol 2013;121:44023. 12. Kindly contact [facility] if there is any question as to whether this patient is a candidate for delivery. 13. Continue Pepcid, antiemetics, and supportive care 14. Social service consultation due to (+) Toxicology screen. 15. The indications for discontinuation of expectant management and DELIVERY in this patient would include ANY of the following: * heart rate abnormalities, (ie, bradycardia , repetitive late or variable decelerations) * Significant new onset proteinuria (see above) * Thrombocytopenia * Hemolysis, * Elevation in liver function tests * Blood pressure that is very labile or poorly controlled with reasonable doses of intravenous labetalol * Symptoms of severe pre-eclampsia epigastric discomfort, headache, dizziness, blurred vision, RUQ pain, seizure. * Standard obstetrical indications 16. We will follow this patient with you while she is hospitalized. Thank you for allowing us to participate in the care of this patient. We look forward to the opportunity to assist in her continued management. If you have any questions, we may be reached [phone]. Sin Carranza M.D.
[2017-11-08] MEDS ORDERED: CELESTONE SOLUSPAN IM SCH (19:00)
[2017-11-09] MEDS: PHENERGAN PR PRN ×2 (01:09→10:59)
[2017-11-09] MEDS: ANCEF/STERILE WATER 2 GM/20 ML 2 GM/20 ML SYRINGE IV SCH ×2 (02:07→12:17)
[2017-11-09] MEDS: LACTATED RINGERS 1,000 ML IV SCH ×2 (03:50→11:04)
[2017-11-09] MEDS: NORMODYNE PO SCH ×2 (08:00→08:11)
--- NOTE | 2017-11-09 08:07 | Progress Note ---
Assessment and Plan A: 22-year-old at 30+6 weeks now w/ superimposed Pre-E on chronic hypertension -Cat 1 tracing -Labile BP's today - 150's-180's/80's (Did not take her medication last night) Issues -Dating --> Has sono here on 08/15/17 @ ~ 19 wks with TAMARA 01/12/18 -24 hr protein is ~ 700 mg -Neg HELLP labs on 11/08/17 -Growth scan (11/08/17) - EFW 8% -BPP 12/29 (11/07/17) -No PNC -Noncompliant with instructions -Hx of leaving AMA -Hx of CHTN w/ labile BP's -Oral history of seizure disorder (Should be on Keppra) -Short interval -N/V of /Ptyalism -Anemia -Cephalic on sono 11/08 Meds: -Celestone started @ ~ 18:00 on 11/08/17 -Labetalol 200mg BID -Keppra 500mg BID -s/p Magnesium on 11/08/17 P: -GI and MFM consult reviewed, thx -Adminsitered her oral antihypertensives now -ABD sono per GI today -Complete celestone started yesterday -Will proceed to delivery if blood pressure remains uncontrolled -NICU consult -BPP & HELLP labs ordered for tomorrow - Patient Problems (1) 30 weeks gestation of Current Visit: Yes Status: Acute (2) Pre-eclampsia superimposed on chronic hypertension, antepartum Current Visit: Yes Status: Acute (3) Hypertension affecting Current Visit: Yes Status: Acute (4) No care in current Current Visit: No Status: Acute (5) Seizure disorder during Current Visit: No Status: Acute Qualifiers: Trimester: second trimester Qualified Code(s): O99.352 - Diseases of the nervous system complicating , second trimester; G40.909 - Epilepsy, unspecified, not intractable, without status epilepticus (6) Ptyalism Current Visit: Yes Status: Acute (7) Short interval between pregnancies affecting in third trimester, antepartum Current Visit: Yes Status: Acute Subjective - Subjective Date of service: 11/09/17 Principal diagnosis: IUP at 30+6 wks, Pre-Eclampsia, IUGR, N/V of Interval history: Since seen and examined, stable. Has a mild headache now, denies scotomata or epigastric discomfort. Blood pressure remained labile, 153-180 over 80s. Note however the patient refused to take her blood pressure medication last night - "it made me feel funny". She still has nausea vomiting and ptyalism-like symptoms, she is scheduled for abdominal ultrasound today. Currently receiving Celestone course No contractions, vaginal bleeding or loss of fluid plus movement Patient reports: new complaints, movement normal, no loss of fluid, no vaginal bleeding, no contractions Objective - Vital Signs Vital Signs: Vital Signs - 12hr 11/08/17 11/08/17 11/08/17 20:52 20:57 21:02 Temperature Pulse Rate 74 76 76 Respiratory Rate Blood Pressure Blood Pressure [Left] O2 Sat by Pulse 99 99 98 Oximetry 11/08/17 11/08/17 11/08/17 21:07 21:12 21:17 Temperature Pulse Rate 72 76 71 Respiratory Rate Blood Pressure Blood Pressure [Left] O2 Sat by Pulse 99 99 99 Oximetry 11/08/17 11/08/17 11/08/17 21:22 21:27 21:32 Temperature Pulse Rate 76 68 73 Respiratory Rate Blood Pressure Blood Pressure [Left] O2 Sat by Pulse 99 99 99 Oximetry 11/08/17 11/08/17 11/08/17 21:37 22:00 22:05 Temperature Pulse Rate 70 76 70 Respiratory Rate Blood Pressure 139/84 Blood Pressure [Left] O2 Sat by Pulse 99 99 99 Oximetry 11/08/17 11/08/17 11/08/17 22:10 22:15 22:20 Temperature Pulse Rate 69 69 70 Respiratory Rate Blood Pressure 135/69 Blood Pressure [Left] O2 Sat by Pulse 99 99 99 Oximetry 11/08/17 11/08/17 11/08/17 22:47 22:52 22:57 Temperature Pulse Rate 66 71 72 Respiratory Rate Blood Pressure Blood Pressure [Left] O2 Sat by Pulse 99 99 99 Oximetry 11/08/17 11/08/17 11/08/17 23:02 23:07 23:10 Temperature Pulse Rate 71 71 71 Respiratory Rate Blood Pressure 147/84 Blood Pressure [Left] O2 Sat by Pulse 99 99 Oximetry 06/18/18 06/18/18 06/18/18 23:12 23:17 23:22 Temperature Pulse Rate 70 70 72 Respiratory Rate Blood Pressure Blood Pressure [Left] O2 Sat by Pulse 99 99 99 Oximetry 11/08/17 11/08/17 11/08/17 23:27 23:32 23:37 Temperature Pulse Rate 72 72 74 Respiratory Rate Blood Pressure Blood Pressure [Left] O2 Sat by Pulse 98 98 98 Oximetry 11/08/17 11/08/17 11/08/17 23:42 23:47 23:52 Temperature Pulse Rate 80 69 68 Respiratory Rate Blood Pressure Blood Pressure [Left] O2 Sat by Pulse 99 98 98 Oximetry 11/08/17 11/09/17 11/09/17 23:57 00:02 00:07 Temperature Pulse Rate 84 83 75 Respiratory Rate Blood Pressure Blood Pressure [Left] O2 Sat by Pulse 99 99 99 Oximetry 11/09/17 11/09/17 11/09/17 00:10 00:15 00:20 Temperature Pulse Rate 83 69 76 Respiratory Rate Blood Pressure 119/64 Blood Pressure [Left] O2 Sat by Pulse 99 99 Oximetry 11/09/17 11/09/17 11/09/17 00:25 00:30 02:10 Temperature Pulse Rate 76 80 69 Respiratory Rate Blood Pressure 137/78 Blood Pressure [Left] O2 Sat by Pulse 99 99 Oximetry 11/09/17 11/09/17 11/09/17 03:10 04:10 05:10 Temperature Pulse Rate 96 H 74 82 Respiratory Rate Blood Pressure 111/71 108/57 109/56 Blood Pressure [Left] O2 Sat by Pulse Oximetry 11/09/17 11/09/17 11/09/17 06:11 07:10 07:52 Temperature Pulse Rate 77 68 71 Respiratory Rate Blood Pressure 119/62 157/87 183/87 Blood Pressure [Left] O2 Sat by Pulse Oximetry 11/09/17 11/09/17 11/09/17 07:53 07:58 08:00 Temperature 97.3 F L Pulse Rate 68 77 74 Respiratory 20 Rate Blood Pressure 153/85 Blood Pressure 153/85 [Left] O2 Sat by Pulse 99 99 100 Oximetry 11/09/17 08:03 Temperature Pulse Rate 88 Respiratory Rate Blood Pressure Blood Pressure [Left] O2 Sat by Pulse 98 Oximetry - Exam Abdomen: Present: normal appearance, soft. Absent: distention, tenderness, guarding, rigidity Uterus: Absent: tenderness FHR: category 1 - Labs Labs: Abnormal Labs 11/07/17 11/07/17 11/07/17 10:07 10:07 10:50 WBC 12.6 H Hgb 7.4 L Hct 26.4 L MCV 65 L MCH 18 L MCHC 28 L RDW 20.0 H Lymph % (Auto) 7.9 L Lymph # 1.0 L Seg Neutrophils % 88.4 H Seg Neutrophils # 11.1 H Sodium Chloride Carbon Dioxide Creatinine 0.4 L Glucose Calcium Magnesium Amylase Lipase TSH Urine WBC (Auto) 12.0 H Ur Total Protein 24 Hr Urine Total Protein 11/07/17 11/08/17 11/08/17 18:10 01:01 05:58 WBC Hgb Hct MCV MCH MCHC RDW Lymph % (Auto) Lymph # Seg Neutrophils % Seg Neutrophils # Sodium 136 L Chloride 97.7 L Carbon Dioxide 21 L Creatinine 0.4 L Glucose 102 H Calcium 6.8 L Magnesium 3.90 H 5.80 H 6.30 H Amylase Lipase TSH Urine WBC (Auto) Ur Total Protein 24 Hr Urine Total Protein 11/08/17 11/08/17 11/08/17 09:58 09:58 14:00 WBC Hgb Hct MCV MCH MCHC RDW Lymph % (Auto) Lymph # Seg Neutrophils % Seg Neutrophils # Sodium Chloride Carbon Dioxide Creatinine Glucose Calcium Magnesium Amylase 231 H Lipase 159 H TSH 0.145 L Urine WBC (Auto) Ur Total Protein 24 Hr 765.00 H Urine Total Protein 51 H Laboratory Results - last 24 hr 11/08/17 11/08/17 11/08/17 09:58 09:58 09:58 Amylase 231 H Lipase 159 H TSH 0.145 L Free T4 1.12 Urine Total Volume Ur Total Protein 24 Hr Urine Total Protein 11/08/17 14:00 Amylase Lipase TSH Free T4 Urine Total Volume 1500 Ur Total Protein 24 Hr 765.00 H Urine Total Protein 51 H
[2017-11-09] MEDS: ZOFRAN IV PRN (08:18)
[2017-11-09 08:39] LABS: Alanine Aminotransferase 9 units/L (7-56); Albumin 3.1 g/dL (3.9-5); BUN/Creatinine Ratio 18; Blood Urea Nitrogen 7 mg/dL (7-17); Calcium 8.3 mg/dL (8.4-10.2); Hemolysis Index 0
--- NOTE | 2017-11-09 09:22 | Ultrasound Report ---
ULTRASOUND ABDOMEN COMPLETE: TECHNIQUE: Transabdominal ultrasound with color Doppler interrogation. HISTORY: Nausea and vomiting. COMPARISON: none. FINDINGS: LIVER: Normal. BILIARY SYSTEM: Normal. PANCREAS: Normal. SPLEEN: Normal. KIDNEYS: Both kidneys are normal size, contour and position. There is moderate right hydronephrosis. No left hydronephrosis. No focal renal lesion or nephrolithiasis is identified. AORTA/IVC: Normal. ASCITES: None. IMPRESSION: Moderate right hydronephrosis.
--- NOTE | 2017-11-09 10:46 | Gastroenterology Progress Note ---
Assessment and Plan 1.N/V -noted slight increase amylase/lipase -LFTs WNL -abd U/S showed moderate right hydronephrosis but otherwise normal (no evidence of cholecystitis, gallstones, or CBD dilation) -etiology unclear -patient being evaluated for preeclampsia by PERSONAL INJURY LITIGATION [employer]ALE[employer] -clinically, N/V has now improved with no episodes this am -no plans for EGD at this time -start on clear liquid diet-advance as tolerated -continue current medications and supportive care -will sign off, please call if needed Subjective Date of service: 11/09/17 Principal diagnosis: N/V Interval history: Patient resting in bed this am w/o acute distress. Reports N/V has improved with no episodes this am and is requesting jello to eat. States she still has intermittent lower abd pain/cramping but no abd pain at the time of exam. Objective - Constitutional Vitals: Temp Pulse Resp BP Pulse Ox 97.3 F L 71 20 113/56 99 11/09/17 08:00 11/09/17 10:10 11/09/17 08:00 11/09/17 10:10 11/09/17 08:38 General appearance: no acute distress - Respiratory Respiratory: bilateral: CTA - Cardiovascular Rhythm: regular Heart Sounds: Present: S1 & S2 - Gastrointestinal General gastrointestinal: Present: soft, tender, non-distended, normal bowel sounds (slight generalized TTP) - Neurologic Neurological: alert and oriented x3 - Labs CBC & Chem 7: 11/07/17 10:07 11/09/17 07:54 Labs: Laboratory Results - last 24 hr 11/08/17 11/08/17 11/08/17 09:58 09:58 09:58 Sodium Potassium Chloride Carbon Dioxide Anion Gap BUN Creatinine Estimated GFR BUN/Creatinine Ratio Glucose Calcium Total Bilirubin AST ALT Alkaline Phosphatase Total Protein Albumin Albumin/Globulin Ratio Amylase 231 H Lipase 159 H TSH 0.145 L Free T4 1.12 Urine Total Volume Ur Total Protein 24 Hr Urine Total Protein 11/08/17 11/09/17 14:00 07:54 Sodium 136 L Potassium 4.3 Chloride 100.0 Carbon Dioxide 23 Anion Gap 17 BUN 7 Creatinine 0.4 L Estimated GFR > 60 BUN/Creatinine Ratio 18 Glucose 94 Calcium 8.3 L D Total Bilirubin 0.50 AST 18 ALT 9 Alkaline Phosphatase 89 Total Protein 6.7 Albumin 3.1 L Albumin/Globulin Ratio 0.9 Amylase Lipase TSH Free T4 Urine Total Volume 1500 Ur Total Protein 24 Hr 765.00 H Urine Total Protein 51 H
[2017-11-09] MEDS: PEPCID IV SCH (11:02)
[2017-11-09] MEDS: KEPPRA PO SCH (12:09)
[2017-11-09] MEDS: PRENATAL VITAMIN PO SCH (12:11)
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
[2017-11-09 16:48] VITALS: BP 120/66
--- NOTE | 2017-11-10 06:59 | Event Note ---
Date: 11/10/17 Late Entry: Called and informed patient wishes to leave AGAINST MEDICAL ADVICE. I saw patient and had an extensive discussion with her. I explained to the patient that she has superimposed preeclampsia on chronic hypertension which is a serious medical condition. I explained that she and her baby at risk for serious morbidity or mortality, I advised her to wait until the morning will we can reassess her and then decide on the proper course of action. I then left the room, and had a discussion with Bob road monkey Dr. Carranza. His recommendation was to let patient know that if she insisted on leaving AMA, she could proceed to another hospital to ask her second opinion. I relayed this formation to the patient by her RN. I assumed the patient had changed her mind , however, was informed this AM that patient had signed the paper and left AGAINST MEDICAL ADVICE.
--- NOTE | 2017-11-10 07:01 | Discharge Summary ---
Providers - Providers Date of Admission: 11/07/17 09:08 Date of discharge: 11/10/17 Attending physician: VINI RAMOS 11/07/17 14:21 Consult to Physician [CONS] Routine Comment: Consulting Provider: MARLINE CALIXTO I Physician Instructions: Reason For Exam: CHTN at 30+4 wks 11/08/17 07:04 Consult to Physician [CONS] Routine Comment: Consulting Provider: NIK ALARCON Physician Instructions: Reason For Exam: N/V at ~ 31 wks 11/09/17 08:43 Consult to Physician [CONS] Routine Comment: Consulting Provider: DARRIAN KEARNS Physician Instructions: Reason For Exam: CHTN, Pre-Eclampsia at 31 wks Primary care physician: VINI RAMOS Hospitalization Reason for admission: IUP - (IUP at 31 wks with superimposed Pre-E), observation Hospital course: 22y/o @ 30+4 weeks presented with complaint of nausea and lower abdominal pain, she is a drop-in patient with no care. Essential history this patient who is well known to L&D due to numerous presentations. She has a history of seizure disorder and chronic hypertension. Patient was seen in July and September in this hospital, she appears to have had a seizure disorder and was seen by neurology and psychiatry. She was advised to follow up outpatient, it appears she did not. Note the patient left AGAINST MEDICAL ADVICE during her last visit in September In triage, her blood pressure is labile in the 130s to 160s over 70s to 100s. She denies headache, epigastric pain or scotomata but does complain of abdominal pain and nausea vomiting. She denies vaginal bleeding or leakage of fluid, she is not [place] on the monitor. The patient claims she has been compliant with her labetalol but denies use of Keppra She was admitted to the floor. Her labetalol was increased to 200 mg twice a day Her Keppra was restarted She continued to have nausea vomiting and GI consultation was requested. GI obtain ultrasound which showed right hydronephrosis otherwise unremarkable Her nausea vomiting improved but she continued to have ptyalism She was started on magnesium She was seen in consult basis by [facility] She completed her steroid course on 11/09/2017 Issues -Dating --> Has sono here on 08/15/17 @ ~ 19 wks with TAMARA 01/12/18 -24 hr protein is ~ 700 mg -Neg HELLP labs on 11/08/17 -Growth scan (11/08/17) - EFW 8% -BPP 12/29 (11/07/17) -No PNC -Noncompliant with instructions -Hx of leaving AMA -Hx of CHTN w/ labile BP's -Oral history of seizure disorder (Should be on Keppra) -Short interval -N/V of /Ptyalism -Anemia -Cephalic on sono 11/08 Meds: -Celestone completed @ ~ 18:00 on 11/09/17 -Labetalol 200mg BID -Keppra 500mg BID -s/p Magnesium on 11/08/17 Patient left AGAINST MEDICAL ADVICE on 11/09/2017 Disposition: [id number] LEFT AGAINST MED ADVICE - Discharge Diagnoses (1) 30 weeks gestation of Status: Acute (2) Pre-eclampsia superimposed on chronic hypertension, antepartum Status: Acute (3) Hypertension affecting Status: Acute (4) No care in current Status: Acute (5) Seizure disorder during Status: Acute Qualifiers: Trimester: second trimester Qualified Code(s): O99.352 - Diseases of the nervous system complicating , second trimester; G40.909 - Epilepsy, unspecified, not intractable, without status epilepticus (6) Ptyalism Status: Acute (7) Short interval between pregnancies affecting in third trimester, antepartum Status: Acute Plan - Discharge Medications Prescriptions: Famotidine [Pepcid] 20 mg PO BID #60 tablet Labetalol [Normodyne TAB] 200 mg PO BID #60 tablet - Provider Discharge Summary Additional instructions: [] Smoking cessation referral if applicable(refer to patient education folder for contact #) [] Refer to [facility] Booklet Call your doctor immediately for: * Fever > 100.5 * Heavy vaginal bleeding ( >1 pad per hour) * Severe persistent headache * Shortness of breath * Reddened, hot, painful area to leg or breast * Drainage or odor from incision. * Keep incision clean and dry at all times and follow doctor's instructions regarding bathing/showering - Follow up plan Follow up: VINI RAMOS MD [Primary Care Provider] - 7 Days
== END 2017-11-09 18:01 | disposition left against medical advice (07) ==
LOC: TRG 09:00 → UNDOADMOB 09:08 → LD 09:08 → TRG 09:08
PROVIDERS: ADMIT Obstetrics & Gynecology Gynecology; ATTEND Obstetrics & Gynecology Gynecology
DX: O13.3 Gestational [pregnancy-induced] hypertension without significant proteinuria, third trimester (principal); O99.353 Diseases of the nervous system complicating pregnancy, third trimester; G40.909 Epilepsy, unspecified, not intractable, without status epilepticus; O99.613 Diseases of the digestive system complicating pregnancy, third trimester; K11.7 Disturbances of salivary secretion; Z3A.30 30 weeks gestation of pregnancy
CPT/HCPCS: 36415; 76700; 76816; 76819; 80048; 80053; 80307; 81001; 82150; 82550; 82553; 82565; 82731; 83615; 83690; 83735; 84156; 84439; 84443; 84450; 84460; 84484; 84550; 85025; 86592; 86706; 86762; 86850; 86900; 86901; 87086; 87806; 93005; 93010; 96361; 96365; 96366; 96367; 96372; 96375; 96376; G0378; J0610; J0690; J0702; J2405; J3475; J7120; J7121

== ENCOUNTER 2017-12-16 06:31 | Inpatient (IN) | payer OTHER ==
[2017-12-16] MEDS ORDERED: PITOCin/NS 20 UNIT/1000ML DRIP 20,000 MILLIUNITS/1,000 ML BAG IV ONE (07:09)
[2017-12-16] MEDS ORDERED: XYLOCAINE 2% INFILTRATI ONE (07:09)
[2017-12-16] MEDS ORDERED: SUBLIMAZE ONE (07:10)
[2017-12-16] MEDS: LACTATED RINGERS 1,000 ML IV SCH ×2 (07:15→09:06)
[2017-12-16] MEDS ORDERED: SUBLIMAZE IV ONE (07:25)
[2017-12-16] MEDS ORDERED: POLYCILLIN/NS 2 GM/100 ML 2 GM/100 ML BAG IV NR (07:30)
[2017-12-16] MEDS ORDERED: ZOFRAN ONE (07:35)
--- NOTE | 2017-12-16 07:43 | History and Physical Report ---
History of Present Illness Date of examination: 12/16/17 Date of admission: 12/16/17 06:31 Chief complaint: contractions History of present illness: 22y/o @ 36+2 weeks presents in active labor with advanced cervical dilation. She denies leakage of fluid. The patient states she received care in [place] but did not establish care in [place]. She reports a history of hypertension on labetalol. She has had PIH in previous pregnancies. She also reports having a seizure during this at approximately 25 weeks ega during a hospitalization for nausea and vomiting. Past History Past Medical History: hypertension, seizure Past Surgical History: no surgical history Social history: single - Obstetrical History Expected Date of Delivery: 01/11/18 Actual Gestation: 36 Week(s) 2 Day(s) : 4 Para: 2 Hx # Term Pregnancies: 1 Number of Pregnancies: 1 Spontaneous Abortions: 1 Induced : 0 Number of Living Children: 2 Medications and Allergies Allergies Allergy/AdvReac Type Severity Reaction Status Date / Time latex Allergy Severe Rash Verified 10/01/17 12:08 Home Medications Medication Instructions Recorded Confirmed Last Taken Type Labetalol [Normodyne TAB] 100 mg PO BID 09/20/17 11/07/17 11/07/17 08:00 History Ondansetron [Zofran Odt] 4 mg PO Q8HR PRN #10 tab.rapdis 09/30/17 11/07/17 2 Days Ago Rx ~11/05/17 Famotidine [Pepcid] 20 mg PO BID #60 tablet 11/08/17 Unknown Rx Labetalol [Normodyne TAB] 200 mg PO BID #60 tablet 11/08/17 Unknown Rx Active Meds: Active Medications Ampicillin Sodium (Polycillin/Ns 2 Gm/100 Ml) 2 gm in 100 mls @ 100 mls/hr IV ONCE NR Stop: 12/16/17 10:00 Ampicillin Sodium (Ampicillin/Ns 1 Gm/50 Ml) 1 gm in 50 mls @ 100 mls/hr IV Q4H [facility]; Protocol Lactated Ringer's (Lactated Ringers) 1,000 mls @ 125 mls/hr IV DIRECT [facility] Review of Systems All systems: negative Genitourinary: pelvic pain, contractions, no leakage of fluid - Vital Signs Vital signs: Vital Signs Pulse BP 90 139/95 12/16/17 06:39 12/16/17 06:39 Temp Pulse Resp BP Pulse Ox 97.0 F L 75 20 141/85 100 12/16/17 07:07 12/16/17 07:12 12/16/17 07:07 12/16/17 07:12 12/16/17 07:07 - Physical Exam Breasts: Positive: deferred Cardiovascular: Regular rate Lungs: Positive: Clear to auscultation Abdomen: Positive: normal appearance Results All other labs normal. Assessment and Plan - Patient Problems (1) Chronic hypertension affecting Current Visit: No Status: Acute Plan to address problem: admit to L&D for anticipated vaginal delivery
[2017-12-16] MEDS ORDERED: ZOFRAN IV PRN (08:00)
[2017-12-16] MEDS ORDERED: SUBLIMAZE IV PRN (08:00)
[2017-12-16 08:34] LABS: Hematocrit 22.3 % (30.3-42.9); Hemoglobin 6.7 gm/dl (10.1-14.3); Mean Corpuscular HGB Conc 30 % (30-34); Platelet Count 329 K/mm3 (140-440)
[2017-12-16 08:39] LABS: Mean Corpuscular Hemoglobin 19 pg (28-32); Mean Corpuscular Volume 64 fl (79-97); Red Cell Distribution Width 21.5 % (13.2-15.2)
--- NOTE | 2017-12-16 09:35 | Anesthesia Consultation ---
Anesthesia Consult and Med Hx Date of service: 12/16/17 - Airway Anesthetic Teeth Evaluation: Good ROM Head & Neck: Adequate Mental/Hyoid Distance: Adequate Mallampati Class: Class II Intubation Access Assessment: Probably Good - Pre-Operative Health Status ASA Pre-Surgery Classification: ASA3 Proposed Anesthetic Plan: Epidural, Spinal - Pulmonary Hx Asthma: Yes (use albuteral inhaler, last use in June this year) COPD: No Hx Pneumonia: No - Cardiovascular System Hx Hypertension: Yes (use labetalol 200mg bid) - Central Nervous System Hx Seizures: Yes (with this ) Hx Psychiatric Problems: No - Endocrine Hx Renal Disease: No Hx End Stage Renal Disease: No Hx Hypothyroidism: No Hx Hyperthyroidism: No - Hematic Hx Anemia: No Hx Sickle Cell Disease: No - Other Systems Hx Alcohol Use: No
[2017-12-16] MEDS ORDERED: NARCAN 2 MG/2 ML IV PRN (10:00)
[2017-12-16] MEDS ORDERED: fentaNYL-BUPIV 2 MCG/ML-0.125% 200 MCG/100 ML BAG EPIDURAL SCH (10:00)
[2017-12-16] MEDS ORDERED: ePHEDrine SULFATE IV PRN (10:00)
[2017-12-16] MEDS ORDERED: PITOCin/NS 30 UNIT/500ML 30 UNITS/500 ML BAG IV SCH (12:00)
[2017-12-16] MEDS ORDERED: AMPICILLIN/NS 1 GM/50 ML 1 GM/50 ML BAG IV SCH (12:00)
[2017-12-16] MEDS: NORMODYNE PO SCH ×2 (12:29→15:31)
--- NOTE | 2017-12-16 13:33 | Procedure Note ---
OB Delivery Note - Delivery Date of Delivery: 12/16/17 Surgeon: RONNIE ROCHE Estimated blood loss: other (150ml) - Vaginal Delivery presentation: vertex Delivery position: OA Intrapartum events: no care Delivery augmentation: rupture of membranes Delivery monitor: external FHT Route of delivery: Delivery placenta: spontaneous Delivery cord: nuchal cord, 3 umbilical vessels Delivery laceration: none Anesthesia: epidural Delivery comments: Patient progressed to C/C/+2 and pushed to deliver a liveborn male with apgars of 8/9. After delivery of the head, the shoulders delivered easily. Nuchal cord x 1 manually reduced. Cord clamped and cut and infant was placed on the warmer. The placenta delivered spontaneously intact with 3VC. No lacerations noted. Infant weight 4lbs 4oz. EBL 150ml - A at 1 minute: 8 at 5 minutes: 9 Infant Gender: Male (weight 4lbs 4oz)
[2017-12-16] MEDS ORDERED: LANSINOH TP PRN (13:34)
[2017-12-16] MEDS ORDERED: BENADRYL PO PRN (13:34)
[2017-12-16] MEDS ORDERED: MILK OF MAGNESIA PO PRN (13:34)
[2017-12-16] MEDS ORDERED: DULCOLAX PR PRN (13:34)
[2017-12-16] MEDS ORDERED: PHENERGAN PR PRN (13:34)
[2017-12-16] MEDS ORDERED: TYLENOL PO PRN (13:34)
[2017-12-16] MEDS ORDERED: TUCKS PAD TP PRN (13:34)
[2017-12-16] MEDS ORDERED: SODIUM CHLORIDE FLUSH SYRINGE 10 ML IV NR (14:00)
[2017-12-16] MEDS: MOTRIN PO SCH (15:28)
[2017-12-17] MEDS: ZOFRAN IV PRN ×4 (00:33→21:03)
[2017-12-17] MEDS: NORMODYNE PO SCH ×2 (00:33→10:17)
[2017-12-17] MEDS: PHENERGAN PO PRN ×2 (00:35→21:05)
[2017-12-17 00:58] LABS: Hematocrit 19.2 % (30.3-42.9); Hemoglobin 5.8 gm/dl (10.1-14.3)
[2017-12-17] MEDS ORDERED: NACL 0.9% 500 ML 500 ML IV ONE (01:53)
--- NOTE | 2017-12-17 02:07 | Event Note ---
Date: 12/17/17 Paty PAGE notified on-call MD of hemoglobin and hematocrit of 5.8/19.2. Plan to transfuse two units PRBCs and recheck hemoglobin and hematocrit four hours after transfusion of second unit.
[2017-12-17] MEDS: NORCO 5/325 PO PRN ×2 (05:44→21:04)
--- NOTE | 2017-12-17 06:07 | Event Note ---
Date: 12/17/17 On-call MD called by Paty PAGE regarding elevated blood pressure after first unit of blood with systolic 160s. She reports patient was c/0 vaginal cramping and has a h/o hypertension. If elevation persists, order PIH panel. Scheduled to receive labetalol 200 BID presently. Will give hydrazline IV now and continue to monitor.
[2017-12-17] MEDS ORDERED: APRESOLINE IV PRN (06:08)
[2017-12-17] MEDS: MOTRIN PO SCH (08:15)
--- NOTE | 2017-12-17 13:09 | Progress Note ---
Assessment and Plan - Patient Problems (1) Chronic hypertension affecting Current Visit: No Status: Acute (2) Anemia Current Visit: No Status: Acute Qualifiers: Anemia type: iron deficiency Plan to address problem: Routine care Subjective - Subjective Date of service: 12/17/17 Interval history: Patient received 2 units of packed blood cells secondary to severe anemia. Awaiting posttransfusion hemoglobin and hematocrit results. The patient is without complaints. Patient reports: appetite normal, voiding normally, pain well controlled Objective - Vital Signs Latest vital signs: Vital Signs Temp Pulse Resp BP BP Pulse Ox 12/17/17 11:40 98.3 F 71 18 148/82 12/17/17 11:15 98 F 78 18 144/84 12/17/17 10:45 97.8 F 84 18 147/86 12/17/17 10:15 98.5 F 64 16 141/82 12/17/17 09:45 98.8 F 94 H 18 137/93 12/17/17 09:30 98.6 F 62 16 154/70 12/17/17 09:23 58 L 166/72 12/17/17 08:05 98.6 F 59 L 18 174/88 100 12/17/17 06:17 67 99 12/17/17 06:09 61 167/103 100 12/17/17 06:00 64 167/103 99 12/17/17 05:45 165/95 12/17/17 05:31 86 153/99 99 12/17/17 05:19 63 132/79 100 12/17/17 05:15 64 133/79 100 12/17/17 04:59 123/86 12/17/17 00:33 78 127/78 12/17/17 00:11 98.6 F 78 20 127/77 99 12/16/17 21:17 98.9 F 70 20 131/76 100 12/16/17 17:26 98.7 F 12/16/17 17:15 86 18 122/72 100 12/16/17 16:00 97.6 F 67 18 133/60 100 12/16/17 15:34 76 176/67 12/16/17 15:31 76 176/67 12/16/17 15:29 69 142/77 12/16/17 15:03 59 L 149/64 12/16/17 14:48 59 L 147/65 12/16/17 14:33 61 137/70 12/16/17 14:18 64 127/74 12/16/17 14:03 90 116/84 12/16/17 13:48 80 126/60 12/16/17 13:36 74 143/65 12/16/17 13:33 71 135/65 12/16/17 13:18 142 H 140/97 Intake and Output 12/16/17 12/17/17 12/17/17 22:59 06:59 14:59 Intake Total 250 250 Output Total 300 Balance -300 250 250 Intake: Blood Product 250 250 Leukoreduced Red Blood 250 Cells Unit [id number] Leukoreduced Red Blood 250 Cells Unit [id number] Output: Urine 300 Void 300 Other: Total, Output Amount 300 - Exam Abdomen: Present: normal appearance, soft Uterus: Present: normal, firm - Labs Labs: Abnormal lab results 12/16/17 12/17/17 Range/Units 08:00 00:24 Hgb 5.8 L* (10.1-14.3) gm/dl Hct 19.2 L* (30.3-42.9) % Crossmatch See Detail
[2017-12-17 16:33] LABS: Hematocrit 28.3 % (30.3-42.9); Hemoglobin 8.9 gm/dl (10.1-14.3)
[2017-12-18] MEDS: NORMODYNE PO SCH ×3 (11:00→22:15)
[2017-12-18] MEDS: NORCO 5/325 PO PRN ×2 (11:45→20:40)
--- NOTE | 2017-12-18 13:06 | Progress Note ---
Assessment and Plan - Patient Problems (1) Chronic hypertension affecting Current Visit: No Status: Acute Plan to address problem: will increase the dosage of labetalol Will need to consider adding a second agent if blood pressures are not controlled with labetalol (2) Anemia Current Visit: No Status: Acute Qualifiers: Anemia type: iron deficiency Subjective - Subjective Date of service: 12/18/17 Interval history: Patient with elevated blood pressures. States lochia is decreasing. Denies any seizure activity. Patient reports: appetite normal, voiding normally, pain well controlled [place]: doing well Objective - Vital Signs Latest vital signs: Vital Signs Temp Pulse Resp BP Pulse Ox 12/18/17 08:45 98.3 F 72 20 158/87 98 - Exam Uterus: Present: normal, firm - Labs Labs: Abnormal lab results 12/17/17 Range/Units 16:07 Hgb 8.9 L D (10.1-14.3) gm/dl Hct 28.3 L D (30.3-42.9) %
--- NOTE | 2017-12-18 13:08 | Discharge Summary ---
Providers - Providers Date of Admission: 12/16/17 06:31 Date of discharge: 12/19/17 Attending physician: RONNIE ROCHE Primary care physician: TRACK PATROL Hospitalization Reason for admission: active labor Delivery: complications: other (chronic hypertension) Discharge diagnosis: other [place] baby: male Hospital course: The patient was admitted in active labor to labor and delivery. The patient had not received care during the . Her medical history significant for chronic hypertension. The patient had successful vaginal delivery. She experienced anemia requiring transfusion of 2 units of packed red blood cells. Condition at discharge: Good Disposition: DC-01 TO HOME OR SELFCARE - Discharge Diagnoses (1) Chronic hypertension affecting Status: Acute (2) Anemia Status: Acute Qualifiers: Anemia type: iron deficiency Plan - Discharge Medications Prescriptions: Ferrous Sulfate [Feosol 325 MG tab] 325 mg PO BID #60 tablet HYDROcodone/APAP 5-325 [[place] 5/325] 1 each PO Q6HR PRN #20 tablet PRN Reason: Pain Ibuprofen [Motrin] 800 mg PO Q8HR PRN #60 tablet PRN Reason: Pain, Moderate (4-6) Labetalol [Normodyne TAB] 400 mg PO BID #60 tablet - Provider Discharge Summary Activity: no sex for 6 weeks, no heavy lifting 4 weeks, no strenuous exercise Diet: routine Instructions: routine Additional instructions: [] Smoking cessation referral if applicable(refer to patient education folder for contact #) [] Refer to [facility] Book[facility] Call your doctor immediately for: * Fever > 100.5 * Heavy vaginal bleeding ( >1 pad per hour) * Severe persistent headache * Shortness of breath * Reddened, hot, painful area to leg or breast * Scheduled follow-up in 2 weeks for blood pressure check - Follow up plan
[2017-12-18] MEDS: MOTRIN PO SCH (19:10)
[2017-12-19] MEDS: MOTRIN PO SCH ×2 (02:53→12:34)
[2017-12-19] MEDS: NORMODYNE PO SCH (12:33)
[2017-12-19 12:35] VITALS: BP 130/76
== END 2017-12-19 12:30 | disposition home or self-care (01) | DRG 775 ==
LOC: LD 06:31 → OB 16:03
PROVIDERS: ADMIT Obstetrics & Gynecology; ATTEND Obstetrics & Gynecology
PROC: 10E0XZZ Delivery of Products of Conception, External Approach (ICD-10-PCS; principal; 2017-12-16)
PROC: 3E0R3BZ Introduction of Anesthetic Agent into Spinal Canal, Percutaneous Approach (ICD-10-PCS; 2017-12-16)
PROC: 00HU33Z Insertion of Infusion Device into Spinal Canal, Percutaneous Approach (ICD-10-PCS; 2017-12-16)
PROC: 30233N1 Transfusion of Nonautologous Red Blood Cells into Peripheral Vein, Percutaneous Approach (ICD-10-PCS; 2017-12-17)
DX: O16.4 Unspecified maternal hypertension, complicating childbirth (principal); O69.81X0 Labor and delivery complicated by cord around neck, without compression, not applicable or unspecified; O99.52 Diseases of the respiratory system complicating childbirth; J45.909 Unspecified asthma, uncomplicated; O99.02 Anemia complicating childbirth; D64.9 Anemia, unspecified; Z3A.36 36 weeks gestation of pregnancy; Z37.0 Single live birth
CPT/HCPCS: 36415; 85014; 85018; 85027; 86592; 86850; 86900; 86901; 86920; J0290; J0360; J2405; J2590; J3010; J7040; J7120; P9016; Q0169

== ENCOUNTER 2017-12-19 18:20 | Inpatient (IN) | payer OTHER ==
[2017-12-19] MEDS ORDERED: APRESOLINE ONE (18:33)
[2017-12-19] MEDS ORDERED: APRESOLINE IV ONE (18:39)
[2017-12-19] MEDS ORDERED: SUBLIMAZE IV ONE ×2 (19:16→20:34)
[2017-12-19 19:18] LABS: Hematocrit 29.9 % (30.3-42.9); Hemoglobin 9.5 gm/dl (10.1-14.3); Mean Corpuscular HGB Conc 32 % (30-34); Mean Corpuscular Volume 71 fl (79-97); Platelet Count 306 K/mm3 (140-440); Red Blood Count 4.21 M/mm3 (3.65-5.03)
[2017-12-19 19:22] LABS: Mean Corpuscular Hemoglobin 23 pg (28-32); Red Cell Distribution Width 27.5 % (13.2-15.2)
--- NOTE | 2017-12-19 19:24 | Emergency Department Report ---
HPI - General Chief Complaint: Dizziness Time Seen by Provider: 12/19/17 18:32 - HPI HPI: The patient is a 22-year-old female 3 days status post vaginal delivery, with a history of superimposed preeclampsia, who presents for evaluation of abdominal pain, nausea, and vomiting. The patient reports 1-2 hours of generalized cramping abdominal pain, 10/10 in severity, constant since onset, and associated with mild achy generalized headache, nausea, and nonbilious, nonbloody emesis. The patient denies fever, head injury, neck pain, neck stiffness, vision or hearing changes, smell or taste changes, paresthesias, facial drooping, slurred speech, seizure-like activity, urine or bowel incontinence or retention, or other focal neurological deficit. ED Past Medical Hx - Past Medical History Hx Hypertension: Yes (use labetalol 200mg bid) Hx Congestive Heart Failure: No Hx Diabetes: No Hx Deep Vein Thrombosis: No Hx Renal Disease: No Hx Sickle Cell Disease: No Hx Arthritis: Yes Hx Seizures: Yes (with this ) Hx Asthma: Yes (use albuteral inhaler, last use in June this year) Hx COPD: No Hx HIV: No Additional medical history: SCOLIOSIS//preclampsia - Social History Smoking Status: Never Smoker Substance Use Type: None - Medications Home Medications: Home Medications Medication Instructions Recorded Confirmed Last Taken Type Labetalol [Normodyne TAB] 100 mg PO BID 09/20/17 11/07/17 11/07/17 08:00 History Ondansetron [Zofran Odt] 4 mg PO Q8HR PRN #10 tab.rapdis 09/30/17 11/07/17 2 Days Ago Rx ~11/05/17 Famotidine [Pepcid] 20 mg PO BID #60 tablet 11/08/17 Unknown Rx Labetalol [Normodyne TAB] 200 mg PO BID #60 tablet 11/08/17 Unknown Rx Ferrous Sulfate [Feosol 325 MG tab] 325 mg PO BID #60 tablet 12/18/17 Unknown Rx HYDROcodone/APAP 5-325 [[place] 1 each PO Q6HR PRN #20 tablet 12/18/17 Unknown Rx 5/325] Ibuprofen [Motrin] 800 mg PO Q8HR PRN #60 tablet 12/18/17 Unknown Rx Labetalol [Normodyne TAB] 400 mg PO BID #60 tablet 12/18/17 Unknown Rx ED Review of Systems ROS: Stated complaint: SHAKY LIGHT HEADED/WEAK Other details as noted in HPI Constitutional: denies: fever ENT: denies: throat or neck pain Respiratory: denies: cough, shortness of breath Cardiovascular: denies: chest pain Endocrine: denies unexplained weight loss or gain Gastrointestinal: reports abdominal pain, nausea Genitourinary: denies: dysuria Musculoskeletal: denies: leg swelling Skin: denies: rash Neurological: reports: headache Hematological/Lymphatic: denies: easy bleeding or easy bruising Psych: denies sadness or hopelessness Physical Exam - Physical Exam Vital Signs: Vital Signs 12/19/17 12/19/17 12/19/17 18:23 18:37 18:40 Temperature 98 F Pulse Rate 78 83 78 Respiratory 20 9 L 18 Rate Blood Pressure 171/103 180/100 Blood Pressure 180/100 [Right] O2 Sat by Pulse 100 100 100 Oximetry 12/19/17 12/19/17 18:45 18:46 Temperature Pulse Rate 78 Respiratory 18 18 Rate Blood Pressure Blood Pressure 156/92 [Right] O2 Sat by Pulse 100 100 Oximetry Physical Exam: General: well-nourished, well-developed, no acute distress Head: Normocephalic, atraumatic Eyes: normal sclera ENT: Mucous membranes are pink and moist Neck: trachea midline, neck supple, No neck stiffness, no cervical adenopathy Respiratory: Breath sounds equal bilaterally, no wheezing, rales, or rhonchi Cardio: S1 and S2 present, no murmurs, rubs, gallops, capillary refill is brisk Abdomen: Normoactive bowel sounds, soft abdomen, generalized tenderness to palpation present, no rigidity, no guarding or rebound tenderness Musc: No pitting edema Skin: No rash Neuro: alert oriented x4, normal cognition, speech normal, PERRL, EOM intact, no facial drooping, no uvula or tongue deviation on protrusion, no deficit with rotation of neck or shoulder shrug, no obvious gross motor deficit in the upper or lower extremities with flexion or extension at the shoulder, elbow, wrist, hip, knee, or ankle bilaterally, no obvious gross sensation deficit to crude touch or 2 pt discrimination, 2+ symmetric reflexes on DTR testing, no coordination deficit with [id number] or xpel-[id number] testing, Babinski downgoing, romberg negative, patient able to to ambulate without abnormal gait Psych: Normal affect ED Course Vital Signs 12/19/17 12/19/17 12/19/17 18:23 18:37 18:40 Temperature 98 F Pulse Rate 78 83 78 Respiratory 20 9 L 18 Rate Blood Pressure 171/103 180/100 Blood Pressure 180/100 [Right] O2 Sat by Pulse 100 100 100 Oximetry 12/19/17 12/19/17 18:45 18:46 Temperature Pulse Rate 78 Respiratory 18 18 Rate Blood Pressure Blood Pressure 156/92 [Right] O2 Sat by Pulse 100 100 Oximetry ED Medical Decision Making - Lab Data Result diagrams: 12/19/17 18:55 12/19/17 18:55 - Medical Decision Making The patient was seen and examined by myself. The patient is placed on a cafeteria monitor and continuous pulse ox. On initial evaluation, the patient was found to be in no distress. Evaluation orders are placed. IV access is established and the patient is given 1 L normal saline fluid bolus and Zofran for nausea, and IV analgesic for pain. Medical records were reviewed and revealed the patient was found to have elevated urine protein and diagnosis of preeclampsia during third trimester . The patient underwent spontaneous vaginal delivery 3 days ago, and required transfusion of 2 units of PRBC due to blood loss. Lab results today exhibited normal LFTs, but elevated LDH level, increased hematocrit level. The patient was given IV magnesium for treatment of suspected preeclampsia, and IV hydralazine IV labetalol for elevated blood pressure. The patient was reevaluated and found to have refractory elevation of her blood pressure and heart rate despite antihypertensives and labetalol. Additionally the patient remains in pain is given additional IV pain medication. The patient's STORE OPERATIONS SPECIALIST Dr. Kaur was contacted. She agreed to admit the patient. She requested that bridging orders be placed as a courtesy. The admit order was placed and the patient was admitted to mother baby and guarded condition.. Critical care attestation.: If time is entered above; I have spent that time in minutes in the direct care of this critically ill patient, excluding procedure time. ED Disposition Clinical Impression: Pre-eclampsia in period, Hypertensive urgency, Acute generalized abdominal pain Intractable vomiting with nausea Qualifiers: Vomiting type: unspecified Qualified Code(s): R11.2 - Nausea with vomiting, unspecified Disposition: OP ADMIT IP TO THIS HOSP Is pt being admited?: Yes Does the pt Need Aspirin: Yes Condition: Serious Instructions: Hypertension (ED) Referrals: PRIMARY CARE, [Primary Care Provider] - 3-5 Days Time of Disposition: 20:46
[2017-12-19 19:27] LABS: Bilirubin,Urine NEG (Negative); Blood,Urine MOD (Negative); Color,Urine Yellow (Yellow); Mucus,Urine FEW /HPF; Protein,Urine <15 mg/dL mg/dL (Negative)
[2017-12-19 19:29] LABS: BUN/Creatinine Ratio 25; Blood Urea Nitrogen 10 mg/dL (7-17); Calcium 8.7 mg/dL (8.4-10.2); Hemolysis Index 0
[2017-12-19 19:32] LABS: Alanine Aminotransferase 23 units/L (7-56); Albumin 3.6 g/dL (3.9-5)
[2017-12-19 19:34] LABS: Bilirubin,Direct < 0.2 mg/dL (0-0.2)
[2017-12-19] MEDS ORDERED: MAGNESIUM SULFATE 4GM/100ML 4 GM/100 ML BAG IV ONE (19:43)
[2017-12-19] MEDS ORDERED: NORMODYNE IV ONE (20:25)
[2017-12-19] MEDS ORDERED: ZOFRAN IV ONE (20:25)
[2017-12-19] MEDS ORDERED: DILAUDID IV ONE (20:49)
[2017-12-20] MEDS ORDERED: MOTRIN PO SCH
--- NOTE | 2017-12-20 00:35 | History and Physical Report ---
History of Present Illness Date of examination: 12/20/17 Date of admission: 12/19/17 20:46 Chief complaint: elevated blood pressures Past History - Obstetrical History : 4 Medications and Allergies Allergies Allergy/AdvReac Type Severity Reaction Status Date / Time latex Allergy Severe Rash Verified 10/01/17 12:08 Home Medications Medication Instructions Recorded Confirmed Last Taken Type Labetalol [Normodyne TAB] 100 mg PO BID 09/20/17 11/07/17 11/07/17 08:00 History Ondansetron [Zofran Odt] 4 mg PO Q8HR PRN #10 tab.rapdis 09/30/17 11/07/17 2 Days Ago Rx ~11/05/17 Famotidine [Pepcid] 20 mg PO BID #60 tablet 11/08/17 Unknown Rx Labetalol [Normodyne TAB] 200 mg PO BID #60 tablet 11/08/17 Unknown Rx Ferrous Sulfate [Feosol 325 MG tab] 325 mg PO BID #60 tablet 12/18/17 Unknown Rx HYDROcodone/APAP 5-325 [[place] 1 each PO Q6HR PRN #20 tablet 12/18/17 Unknown Rx 5/325] Ibuprofen [Motrin] 800 mg PO Q8HR PRN #60 tablet 12/18/17 Unknown Rx Labetalol [Normodyne TAB] 400 mg PO BID #60 tablet 12/18/17 Unknown Rx - Vital Signs Vital signs: Vital Signs Temp Pulse Resp BP Pulse Ox 98 F 78 20 171/103 100 12/19/17 18:23 12/19/17 18:23 12/19/17 18:23 12/19/17 18:23 12/19/17 18:23 Temp Pulse Resp BP Pulse Ox 98.4 F 97 H 11 L 125/64 99 12/19/17 22:04 12/19/17 22:04 12/19/17 21:15 12/19/17 22:04 12/19/17 22:04 Results Result Diagrams: 12/19/17 18:55 12/19/17 18:55 Abnormal lab results 12/19/17 12/19/17 12/19/17 Range/Units 18:55 18:55 19:04 WBC 13.5 H (4.5-11.0) K/mm3 Hgb 9.5 L (10.1-14.3) gm/dl Hct 29.9 L (30.3-42.9) % MCV 71 L (79-97) fl MCH 23 L (28-32) pg RDW 27.5 H (13.2-15.2) % Sodium 136 L (137-145) mmol/L Creatinine 0.4 L (0.7-1.2) mg/dL Glucose 102 H (65-100) mg/dL Lactate Dehydrogenase (91-180) units/L Albumin 3.6 L (3.9-5) g/dL Urine pH (5.0-7.0) 12/19/17 12/19/17 Range/Units 19:04 19:16 WBC (4.5-11.0) K/mm3 Hgb (10.1-14.3) gm/dl Hct (30.3-42.9) % MCV (79-97) fl MCH (28-32) pg RDW (13.2-15.2) % Sodium (137-145) mmol/L Creatinine (0.7-1.2) mg/dL Glucose (65-100) mg/dL Lactate Dehydrogenase 238 H (91-180) units/L Albumin (3.9-5) g/dL Urine pH 8.0 H (5.0-7.0) All other labs normal.
[2017-12-20] MEDS ORDERED: PERCOCET 5/325 PO PRN (00:36)
[2017-12-20] MEDS ORDERED: PHENERGAN PO PRN (00:36)
[2017-12-20] MEDS ORDERED: PHENERGAN PR PRN (00:36)
[2017-12-20] MEDS ORDERED: TYLENOL PO PRN (00:36)
[2017-12-20] MEDS ORDERED: ZOFRAN IV PRN (00:36)
[2017-12-20] MEDS ORDERED: MILK OF MAGNESIA PO PRN (00:36)
[2017-12-20] MEDS ORDERED: BENADRYL PO PRN (00:36)
[2017-12-20] MEDS ORDERED: LANSINOH TP PRN (00:36)
[2017-12-20] MEDS ORDERED: TUCKS PAD TP PRN (00:36)
[2017-12-20] MEDS ORDERED: DULCOLAX PR PRN (00:36)
[2017-12-20] MEDS ORDERED: MAGNESIUM SULFATE 40GM/1000ML 40 GM/1,000 ML BAG IV SCH (01:00)
[2017-12-20] MEDS ORDERED: SODIUM CHLORIDE FLUSH SYRINGE 10 ML IV NR (01:00)
[2017-12-20] MEDS ORDERED: LACTATED RINGERS 1,000 ML IV SCH (01:00)
[2017-12-20 07:56] LABS: Hematocrit 26.9 % (30.3-42.9); Hemoglobin 8.5 gm/dl (10.1-14.3); Mean Corpuscular HGB Conc 32 % (30-34); Mean Corpuscular Volume 71 fl (79-97); Platelet Count 302 K/mm3 (140-440); Red Blood Count 3.77 M/mm3 (3.65-5.03)
--- NOTE | 2017-12-20 08:00 | Progress Note ---
Assessment and Plan A/P HD #1 preeclampsia continue mag for 24 hrs routine BP stabhilizied without antihypertensives Subjective - Subjective Date of service: 12/20/17 Principal diagnosis: preeclampsia Patient reports: appetite normal, voiding normally, pain well controlled, flatus , ambulating normally Objective - Vital Signs Latest vital signs: Vital Signs Temp Pulse Resp BP BP Pulse Ox 12/20/17 06:15 98.1 F 70 20 116/73 98 12/20/17 04:25 69 20 117/97 99 12/20/17 01:25 97.7 F 92 H 20 113/67 98 12/19/17 22:04 98.4 F 97 H 125/64 99 12/19/17 21:15 83 11 L 141/75 99 12/19/17 21:00 70 19 128/74 98 12/19/17 20:30 126 H 9 L 158/96 99 12/19/17 20:00 102 H 11 L 149/95 99 12/19/17 19:48 18 12/19/17 19:30 117 H 13 156/101 100 12/19/17 19:00 120 H 11 L 153/95 100 12/19/17 18:46 18 100 12/19/17 18:45 78 18 156/92 100 12/19/17 18:40 78 18 180/100 180/100 100 12/19/17 18:37 83 9 L 100 12/19/17 18:23 98 F 78 20 171/103 100 Intake and Output 12/19/17 12/19/17 12/20/17 15:59 23:59 07:59 Intake Total 120 Output Total 400 Balance -280 Intake: Oral 120 Output: Urine 400 Void 400 Other: Total, Intake Amount 120 Total, Output Amount 400 Voiding Method Toilet Weight 56.699 kg - Exam Breasts: Present: normal Cardiovascular: Present: Regular rate, Normal S1 Lungs: Present: Clear to auscultation, Normal air movement Abdomen: Present: normal appearance, soft, normal bowel sounds. Absent: distention, tenderness, guarding Vulva: both: normal Uterus: Present: normal, firm, fundal height below umbilicus. Absent: bogginess , tenderness Extremities: Present: normal Deep Tendon Reflex Grade: Normal +2 - Labs Labs: Abnormal lab results 12/19/17 12/19/17 12/19/17 Range/Units 18:55 18:55 19:04 WBC 13.5 H (4.5-11.0) K/mm3 Hgb 9.5 L (10.1-14.3) gm/dl Hct 29.9 L (30.3-42.9) % MCV 71 L (79-97) fl MCH 23 L (28-32) pg RDW 27.5 H (13.2-15.2) % Sodium 136 L (137-145) mmol/L Creatinine 0.4 L (0.7-1.2) mg/dL Glucose 102 H (65-100) mg/dL Lactate Dehydrogenase (91-180) units/L Albumin 3.6 L (3.9-5) g/dL Urine pH (5.0-7.0) 12/19/17 12/19/17 Range/Units 19:04 19:16 WBC (4.5-11.0) K/mm3 Hgb (10.1-14.3) gm/dl Hct (30.3-42.9) % MCV (79-97) fl MCH (28-32) pg RDW (13.2-15.2) % Sodium (137-145) mmol/L Creatinine (0.7-1.2) mg/dL Glucose (65-100) mg/dL Lactate Dehydrogenase 238 H (91-180) units/L Albumin (3.9-5) g/dL Urine pH 8.0 H (5.0-7.0)
[2017-12-20 08:03] LABS: Mean Corpuscular Hemoglobin 23 pg (28-32); Red Cell Distribution Width 28.1 % (13.2-15.2)
[2017-12-20 08:22] LABS: Alanine Aminotransferase 22 units/L (7-56); BUN/Creatinine Ratio 20; Blood Urea Nitrogen 8 mg/dL (7-17); Calcium 7.2 mg/dL (8.4-10.2); Hemolysis Index 10; Uric Acid 4.8 mg/dL (3.5-7.6)
[2017-12-20 11:00] VITALS: BP 121/79
== END 2017-12-20 11:25 | disposition home or self-care (01) | DRG 776 ==
LOC: ED 18:20 → OB 20:46
PROVIDERS: ADMIT Obstetrics & Gynecology; ATTEND Obstetrics & Gynecology
DX: O11.5 Pre-existing hypertension with pre-eclampsia, complicating the puerperium (principal); M19.90 Unspecified osteoarthritis, unspecified site; O99.53 Diseases of the respiratory system complicating the puerperium; J45.909 Unspecified asthma, uncomplicated; I16.0 Hypertensive urgency; O99.89 Other specified diseases and conditions complicating pregnancy, childbirth and the puerperium; R10.9 Unspecified abdominal pain; R11.2 Nausea with vomiting, unspecified; Z79.899 Other long term (current) drug therapy; Z91.040 Latex allergy status
CPT/HCPCS: 36415; 80048; 80053; 80074; 81001; 83615; 83735; 84550; 85027; 93005; 93010; J0360; J1170; J2405; J3010; J3475; J7120

== ENCOUNTER 2018-06-25 11:12 | Emergency (ER) | payer MEDICAID, OTHER ==
[2018-06-25] MEDS ORDERED: ZOFRAN ONE (11:43)
[2018-06-25] MEDS ORDERED: DILAUDID ONE (11:43)
[2018-06-25] MEDS ORDERED: NACL 0.9% 1000 ML 1,000 ML ONE (11:45)
--- NOTE | 2018-06-25 11:49 | Emergency Department Report ---
ED Abdominal Pain HPI - General Chief Complaint: Abdominal Pain Stated Complaint: ABD PAIN/SIDE PAIN Time Seen by Provider: 06/25/18 11:45 Source: patient, EMS Mode of arrival: Wheelchair Limitations: No Limitations - History of Present Illness Initial Comments: 22-year-old -[place] female presents to the emergency room for lower back pain bilateral flank pain and abdominal pain for 2 days. Patient complains of nausea vomiting diarrhea. Patient port yesterday she had diarrhea and no diarrhea today. Patient reports a history of kidney stones. Review of chart shows patient has a history of esophagitis with an admission to the hospital. Patient left AMA. Patient had a CT of the abdomen back in April 2018 which did not show any stones at that time. Patient was given Toradol 60 mg by EMS. Patient denies any vaginal discharge no dysuria no hematuria or hematochezia. MD Complaint: abdominal pain, flank pain -: days(s) (2) Location: suprapubic, bilateral flank Radiation: suprapubic Severity: severe Severity scale (0 -10): 7 Quality: cramping, sharp Consistency: constant Improves With: nothing Worsens With: nothing Associated Symptoms: nausea, vomiting, diarrhea (yesterday) Treatments Prior to Arrival: NSAIDs (torodal 60 mg from EMS) - Related Data LMP Date: 06/20/18 Previous Rx's Medication Instructions Recorded Last Taken Type Amoxicillin/Potassium Clav 1 each PO BID #16 tablet 05/09/18 Unknown Rx [Augmentin 875-125 Tablet] Omeprazole 40 mg PO QDAY #30 capsule. 06/25/18 Unknown Rx Ondansetron [Zofran Odt] 4 mg PO Q8HR #12 tab.rapdis 06/25/18 Unknown Rx Sucralfate [Carafate] 1 gm PO Q6HR #12 tablet 06/25/18 Unknown Rx Allergies Allergy/AdvReac Type Severity Reaction Status Date / Time latex Allergy Severe Rash Verified 06/25/18 11:16 ED Review of Systems ROS: Stated complaint: ABD PAIN/SIDE PAIN Other details as noted in HPI Comment: All other systems reviewed and negative Gastrointestinal: abdominal pain, nausea, vomiting, diarrhea ED Past Medical Hx - Past Medical History Previous Medical History?: No Hx Hypertension: Yes Hx Congestive Heart Failure: No Hx Diabetes: No Hx Deep Vein Thrombosis: No Hx Renal Disease: No Hx Sickle Cell Disease: No Hx Arthritis: Yes Hx Seizures: Yes Hx Asthma: Yes Hx COPD: No Hx HIV: No Additional medical history: SCOLIOSIS//preclampsia - Surgical History Past Surgical History?: No - Social History Smoking Status: Current Every Day Smoker Substance Use Type: None - Medications Home Medications: Home Medications Medication Instructions Recorded Confirmed Last Taken Type Amoxicillin/Potassium Clav 1 each PO BID #16 tablet 05/09/18 Unknown Rx [Augmentin 875-125 Tablet] Omeprazole 40 mg PO QDAY #30 capsule.dr 06/25/18 Unknown Rx Ondansetron [Zofran Odt] 4 mg PO Q8HR #12 tab.rapdis 06/25/18 Unknown Rx Sucralfate [Carafate] 1 gm PO Q6HR #12 tablet 06/25/18 Unknown Rx ED Physical Exam - General Limitations: No Limitations General appearance: alert, anxious - Head Head exam: Present: atraumatic, normocephalic - Eye Eye exam: Present: EOMI - ENT ENT exam: Present: mucous membranes moist - Neck Neck exam: Present: normal inspection, full ROM - Respiratory Respiratory exam: Present: normal lung sounds bilaterally. Absent: respiratory distress - Cardiovascular Cardiovascular Exam: Present: regular rate, normal rhythm. Absent: systolic murmur, diastolic murmur, rubs, gallop - GI/Abdominal GI/Abdominal exam: Present: soft, tenderness, guarding, normal bowel sounds. Absent: distended - Back Exam Back exam: Present: CVA tenderness (R), CVA tenderness (L) - Neurological Exam Neurological exam: Present: alert, oriented X3 - Psychiatric Psychiatric exam: Present: agitated - Skin Skin exam: Present: warm, dry, intact, normal color. Absent: rash ED Course Vital Signs 06/25/18 06/25/18 11:16 11:51 Temperature 98.9 F Pulse Rate 70 Respiratory 18 18 Rate Blood Pressure 167/103 O2 Sat by Pulse 99 Oximetry ED Medical Decision Making - Lab Data Result diagrams: 06/25/18 11:53 06/25/18 11:53 Laboratory Tests 06/25/18 06/25/18 06/25/18 11:35 11:53 11:53 WBC 5.1 RBC 4.28 Hgb 9.1 L Hct 29.9 L MCV 70 L MCH 21 L MCHC 30 RDW 20.2 H Plt Count 287 Lymph % (Auto) 23.2 Stanley % (Auto) 6.9 Eos % (Auto) 0.5 Baso % (Auto) 0.4 Lymph # 1.2 Stanley # 0.4 Eos # 0.0 Baso # 0.0 Seg Neutrophils % 69.0 Seg Neutrophils # 3.5 Sodium Potassium Chloride Carbon Dioxide Anion Gap BUN Creatinine Estimated GFR BUN/Creatinine Ratio Glucose Calcium Total Bilirubin AST ALT Alkaline Phosphatase Total Protein Albumin Albumin/Globulin Ratio Lipase HCG, Qual Negative Urine Color Yellow Urine Turbidity Clear Urine pH 6.0 Ur Specific [place] 1.018 Urine Protein 30 mg/dl Urine Glucose (UA) 50 Urine Ketones 80 Urine Blood Neg Urine Nitrite Neg Urine Bilirubin Neg Urine Urobilinogen < 2.0 Ur Leukocyte Esterase Neg Urine WBC (Auto) 2.0 Urine RBC (Auto) 1.0 U Epithel Cells (Auto) 6.0 Urine Mucus 2+ Urine HCG, Qual Negative Urine Opiates Screen Urine Methadone Screen Ur Barbiturates Screen Ur Phencyclidine Scrn Ur Amphetamines Screen U Benzodiazepines Scrn Urine Cocaine Screen U Marijuana (THC) Screen Drugs of Abuse Note 06/25/18 06/25/18 11:53 Unknown WBC RBC Hgb Hct MCV MCH MCHC RDW Plt Count Lymph % (Auto) Stanley % (Auto) Eos % (Auto) Baso % (Auto) Lymph # Stanley # Eos # Baso # Seg Neutrophils % Seg Neutrophils # Sodium 140 Potassium 3.5 L Chloride 102.3 Carbon Dioxide 23 Anion Gap 18 BUN 13 Creatinine 0.6 L Estimated GFR > 60 BUN/Creatinine Ratio 22 Glucose 101 H Calcium 8.7 Total Bilirubin 0.40 AST 16 ALT 11 Alkaline Phosphatase 51 Total Protein 7.6 Albumin 4.2 Albumin/Globulin Ratio 1.2 Lipase 23 HCG, Qual Urine Color Urine Turbidity Urine pH Ur Specific [place] Urine Protein Urine Glucose (UA) Urine Ketones Urine Blood Urine Nitrite Urine Bilirubin Urine Urobilinogen Ur Leukocyte Esterase Urine WBC (Auto) Urine RBC (Auto) U Epithel Cells (Auto) Urine Mucus Urine HCG, Qual Urine Opiates Screen Presumptive negative Urine Methadone Screen Presumptive negative Ur Barbiturates Screen Presumptive negative Ur Phencyclidine Scrn Presumptive negative Ur Amphetamines Screen Presumptive negative U Benzodiazepines Scrn Presumptive negative Urine Cocaine Screen Presumptive positive U Marijuana (THC) Screen Presumptive positive Drugs of Abuse Note Disclamer - Radiology Data Radiology results: report reviewed FINAL REPORT EXAM: CT ABDOMEN PELVIS W CON HISTORY: n,v,d. b/l flank pain, hx of kidney stones TECHNIQUE: CT abdomen and pelvis performed. Images extend from diaphragm to pu bic symphysis. IV contrast was administered. No oral contrast was administered. Axial images and coronal and sagittal reformatted images were obtained. PRIORS: 05/14/2018 FINDINGS: The visualized aspects of the lung bases are clear. The visualized liver, spleen, pancreas, adrenal glands and kidneys demonstrate no significant abnormalities. There is wall thickening involving the gastric antrum. This is concerning for gastritis. There is no abdominal aortic aneurysm. There is no evidence of intestinal obstruction. The appendix is normal. There are no abnormal fluid collections seen. There is no free intraperitoneal air. The bladder is unremarkable. There is no abnormal pelvic mass or fluid collections seen. IMPRESSION: There is gastric antral wall thickening with appearance worrisome for gastritis. No other significant finding. Transcribed By: BHARGAVI Dictated By: LAKIA CAHRLES MD Electronically Authenticated By: LAKIA CHARLES MD Signed Date/Time: 06/25/18 1340 DD/ TD/TT: 06/25/18 1338 - Medical Decision Making Patient has been evaluated by this provider in fast track. CBC, CMP, urinalysis, UDS, CT with contrast Normal saline, Zofran, Dilaudid 1 mg, D5 normal saline, Tylenol Patient be discharged on Carafate, Zofran and omeprazole. Patient referred to gastroenterology. Critical care attestation.: If time is entered above; I have spent that time in minutes in the direct care of this critically ill patient, excluding procedure time. ED Disposition Clinical Impression: Gastritis, Nausea and vomiting, Polysubstance abuse Disposition: DC-01 TO HOME OR SELFCARE Is pt being admited?: No Does the pt Need Aspirin: No Condition: Stable Instructions: Abdominal Pain (ED), Gastritis (ED) Additional Instructions: Please taking medication as prescribed. Please refrain from smoking weed and consuming cocaine. Please follow up with sales order administrator I have listed their information below for your convenience. Prescriptions: Omeprazole 40 mg PO QDAY #30 capsule. Ondansetron [Zofran Odt] 4 mg PO Q8HR #12 tab.shant Sucralfate [Carafate] 1 gm PO Q6HR #12 tablet Referrals: MELODIE ALVAREZ MD [Primary Care Provider] - 3-5 Days [facility] [Provider Group] - 3-5 Days Forms: Work/School Release Form(ED)
[2018-06-25] MEDS ORDERED: NACL 0.9% 1000 ML 1,000 ML IV ONE ×2 (11:50)
[2018-06-25] MEDS ORDERED: DILAUDID IV ONE ×2 (11:50)
[2018-06-25] MEDS ORDERED: ZOFRAN IV ONE ×2 (11:50→11:51)
[2018-06-25 12:04] LABS: Bilirubin,Urine NEG (Negative); Blood,Urine NEG (Negative); Color,Urine Yellow (Yellow); Mucus,Urine 2+ /HPF; Urobilinogen,Urine < 2.0 mg/dL (<2.0)
[2018-06-25 12:09] LABS: HCG Qualitative,Urine Negative (Negative)
[2018-06-25 12:12] LABS: Basophils % (Auto) 0.4 % (0.0-1.8); Eosinophils % (Auto) 0.5 % (0.0-4.3); Hematocrit 29.9 % (30.3-42.9); Hemoglobin 9.1 gm/dl (10.1-14.3); Lymphocytes # (Auto) 1.2 K/mm3 (1.2-5.4); Lymphocytes % (Auto) 23.2 % (13.4-35.0); Mean Corpuscular HGB Conc 30 % (30-34); Monocytes # (Auto) 0.4 K/mm3 (0.0-0.8); Monocytes % (Auto) 6.9 % (0.0-7.3); Platelet Count 287 K/mm3 (140-440); Red Blood Count 4.28 M/mm3 (3.65-5.03)
[2018-06-25 12:18] LABS: Amphetamine Screen,Urine PRESUMPTIVE NEGATIVE; Benzodiazepines Screen,Urine PRESUMPTIVE NEGATIVE; Methadone Screen,Urine PRESUMPTIVE NEGATIVE; Opiate Screen,Urine PRESUMPTIVE NEGATIVE
[2018-06-25 12:23] LABS: Mean Corpuscular Volume 70 fl (79-97); Red Cell Distribution Width 20.2 % (13.2-15.2)
[2018-06-25 12:27] LABS: Alanine Aminotransferase 11 units/L (7-56); Albumin 4.2 g/dL (3.9-5); BUN/Creatinine Ratio 22; Blood Urea Nitrogen 13 mg/dL (7-17); Calcium 8.7 mg/dL (8.4-10.2); Hemolysis Index 2
[2018-06-25 12:34] LABS: Cannabinoid Screen,Urine PRESUMPTIVE POSITIVE; Cocaine Screen,Urine PRESUMPTIVE POSITIVE
[2018-06-25] MEDS ORDERED: D5NS 1,000 ML IV SCH (13:00)
[2018-06-25] MEDS ORDERED: TYLENOL PO ONE (13:22)
--- NOTE | 2018-06-25 13:40 | Cat Scan Report ---
FINAL REPORT EXAM: CT ABDOMEN PELVIS W CON HISTORY: n,v,d. b/l flank pain, hx of kidney stones TECHNIQUE: CT abdomen and pelvis performed. Images extend from diaphragm to pubic symphysis. IV co ntrast was administered. No oral contrast was administered. Axial images and coronal and sagittal ref ormatted images were obtained. PRIORS: 05/14/2018 FINDINGS: The visualized aspects of the lung bases are clear. The visualized liver, spleen, pancreas, adrenal glands and kidneys demonstrate no significant abnorma lities. There is wall thickening involving the gastric antrum. This is concerning for gastritis. There is no abdominal aortic aneurysm. There is no evidence of intestinal obstruction. The appendix is normal. There are no abnormal fluid collections seen. There is no free intraperitoneal air. The bladder is unremarkable. There is no abnormal pelvic mass or fluid collections seen. IMPRESSION: There is gastric antral wall thickening with appearance worrisome for gastritis. No other significant finding.
[2018-06-25] MEDS ORDERED: CARAFATE PO ONE (14:42)
[2018-06-26 13:57] VITALS: BP 167/103
== END 2018-06-25 15:25 | disposition home or self-care (01) ==
LOC: ED 11:12
DX: K29.70 Gastritis, unspecified, without bleeding (principal); R11.2 Nausea with vomiting, unspecified; I10 Essential (primary) hypertension; M19.90 Unspecified osteoarthritis, unspecified site; J45.909 Unspecified asthma, uncomplicated; F17.200 Nicotine dependence, unspecified, uncomplicated; M54.5 Low back pain; Z91.040 Latex allergy status
CPT/HCPCS: 36415; 74177; 80053; 80307; 81001; 81025; 83690; 84703; 85025; 96361; 96374; 96375; 99284; J1170; J2405; J7030; Q9967

== ENCOUNTER 2019-02-23 06:44 | Emergency (ER) | payer SELFPAY ==
[2019-02-23 06:57] VITALS: BP 162/84
[2019-02-23 07:19] LABS: Basophils % (Auto) 0.2 % (0.0-1.8); Eosinophils # (Auto) 0.1 K/mm3 (0.0-0.4); Eosinophils % (Auto) 0.6 % (0.0-4.3); Lymphocytes # (Auto) 1.9 K/mm3 (1.2-5.4); Lymphocytes % (Auto) 21.3 % (13.4-35.0); Mean Corpuscular HGB Conc 29 % (30-34); Monocytes # (Auto) 0.5 K/mm3 (0.0-0.8); Monocytes % (Auto) 5.4 % (0.0-7.3); Platelet Count 381 K/mm3 (140-440); Red Blood Count 4.37 M/mm3 (3.65-5.03)
[2019-02-23] MEDS ORDERED: ONDANSETRON 4 MG/2 ML INJ IV ONE (07:21)
[2019-02-23] MEDS ORDERED: SODIUM CHLORIDE 0.9% 1000 ML 1,000 ML IV ONE (07:21)
[2019-02-23 07:23] LABS: Hematocrit 27.8 % (30.3-42.9); Hemoglobin 8.2 gm/dl (10.1-14.3); Mean Corpuscular Volume 64 fl (79-97)
[2019-02-23 07:43] LABS: Alanine Aminotransferase 15 units/L (7-56); Albumin 4.6 g/dL (3.9-5); BUN/Creatinine Ratio 27; Blood Urea Nitrogen 16 mg/dL (7-17); Hemolysis Index 0
[2019-02-23] MEDS ORDERED: ACETAMINOPHEN 500 MG TAB PO ONE (07:48)
--- NOTE | 2019-02-23 07:48 | Emergency Department Report ---
Vomiting/Diarrhea - HPI Chief Complaint: Abdominal Pain Stated Complaint: DIZZY,VOMITING Time Seen by Provider: 02/23/19 07:14 Severity: severe Nausea/Vomiting Severity: Mild Diarrhea Severity: None Pain Location: Generalized Pain Severity: Severe Symptoms: Yes Able to Tolerate Fluids, No Watery Diarrhea, No Bloody diarrhea, No Fever, No Recent Unusual Foods, No Recent Untreated Water, No Recent use of Antibiotics, No Family w/ Similar Symptoms, No Contacts w/ Similar Symptoms, No Rash, No Hematuria, No Recent URI Symptoms Other History: 23 yo AA female comes to ER with co severe abd pain. It is generalized and she is gagging. She had full workup at [facility] yesterday. She states, "they even sent me home with no meds.". In review of the EMR, pt has had this in past. Scans have been suggestive of gastritis. She states she did follow up with GI who scoped her but "they did nothing.". THC last used 1 m ago. ETOH occ. pos cig use. LMP last week ED Review of Systems ROS: Stated complaint: DIZZY,VOMITING Other details as noted in HPI Comment: All other systems reviewed and negative ED Past Medical Hx - Past Medical History Previous Medical History?: Yes Hx Hypertension: Yes Hx CVA: No Hx Heart Attack/AMI: No Hx Congestive Heart Failure: No Hx Diabetes: No Hx Deep Vein Thrombosis: No Hx GERD: Yes Hx Liver Disease: No Hx Renal Disease: No Hx of Cancer: No Hx Sickle Cell Disease: No Hx Arthritis: Yes Hx Headaches / Migraines: No Hx Seizures: Yes Hx Kidney Stones: No Hx Psychiatric Treatment: No Hx Asthma: Yes Hx COPD: No Hx HIV: No Additional medical history: SCOLIOSIS//preclampsia - Surgical History Past Surgical History?: No - Family History Family history: no significant - Social History Smoking Status: Never Smoker Substance Use Type: Alcohol, Marijuana - Medications Home Medications: Home Medications Medication Instructions Recorded Confirmed Last Taken Type Amoxicillin/Potassium Clav 1 each PO BID #16 tablet 05/09/18 Unknown Rx [Augmentin 875-125 Tablet] Omeprazole 40 mg PO QDAY #30 capsule. 06/25/18 Unknown Rx Ondansetron [Zofran Odt] 4 mg PO Q8HR #12 tab.shant 06/25/18 Unknown Rx Sucralfate [Carafate] 1 gm PO Q6HR #12 tablet 06/25/18 Unknown Rx Vomiting Diarrhea Exam - Exam General: Vital signs noted. No distress. Alert and acting appropriately. HEENT: Yes Moist Mucous Membranes, No Pharyngeal Erythema, No Pharyngeal Exudates Neck: No Adenopathy, No Rigidity Lungs: Yes Clear Lung Sounds, Yes Good Air Exchange Heart exam: Regular: Yes, Murmur: No Abdomen: Tenderness: No, Peritoneal Signs: No, Distention: No, Hyperactive Bowel sounds: No Skin exam: Rash: No, Edema: No Neurologic: Alert and oriented, no deficits. Musculoskeletal: Unremarkable. ED Course Vital Signs 02/23/19 06:52 Temperature 98.4 F Pulse Rate 85 Respiratory 18 Rate Blood Pressure 162/84 O2 Sat by Pulse 100 Oximetry ED Medical Decision Making - Lab Data Result diagrams: 02/23/19 07:02 02/23/19 07:02 - Medical Decision Making Lab Results 02/23/19 02/23/19 02/23/19 Range/Units 07:02 07:02 07:02 WBC 8.7 (4.5-11.0) K/mm3 RBC 4.37 (3.65-5.03) M/mm3 Hgb 8.2 L (10.1-14.3) gm/dl Hct 27.8 L (30.3-42.9) % MCV 64 L (79-97) fl MCH 19 L (28-32) pg MCHC 29 L (30-34) % RDW 20.0 H (13.2-15.2) % Plt Count 381 (140-440) K/mm3 Lymph % (Auto) 21.3 (13.4-35.0) % Jackson % (Auto) 5.4 (0.0-7.3) % Eos % (Auto) 0.6 (0.0-4.3) % Baso % (Auto) 0.2 (0.0-1.8) % Lymph # 1.9 (1.2-5.4) K/mm3 Jackson # 0.5 (0.0-0.8) K/mm3 Eos # 0.1 (0.0-0.4) K/mm3 Baso # 0.0 (0.0-0.1) K/mm3 Seg Neutrophils % 72.5 H (40.0-70.0) % Seg Neutrophils # 6.3 (1.8-7.7) K/mm3 Sodium 143 (137-145) mmol/L Potassium 4.0 (3.6-5.0) mmol/L Chloride 104.3 (98-107) mmol/L Carbon Dioxide 23 (22-30) mmol/L Anion Gap 20 mmol/L BUN 16 (7-17) mg/dL Creatinine 0.6 L (0.7-1.2) mg/dL Estimated GFR > 60 ml/min BUN/Creatinine Ratio 27 % Glucose 115 H (65-100) mg/dL Calcium 9.0 (8.4-10.2) mg/dL Total Bilirubin 0.40 (0.1-1.2) mg/dL AST 38 (5-40) units/L ALT 15 (7-56) units/L Alkaline Phosphatase 65 (35-129) units/L Total Protein 9.0 H (6.3-8.2) g/dL Albumin 4.6 (3.9-5) g/dL Albumin/Globulin Ratio 1.0 % Lipase (13-60) units/L HCG, Qual Negative (Negative) 02/23/19 Range/Units 07:02 WBC (4.5-11.0) K/mm3 RBC (3.65-5.03) M/mm3 Hgb (10.1-14.3) gm/dl Hct (30.3-42.9) % MCV (79-97) fl MCH (28-32) pg MCHC (30-34) % RDW (13.2-15.2) % Plt Count (140-440) K/mm3 Lymph % (Auto) (13.4-35.0) % Jackson % (Auto) (0.0-7.3) % Eos % (Auto) (0.0-4.3) % Baso % (Auto) (0.0-1.8) % Lymph # (1.2-5.4) K/mm3 Jackson # (0.0-0.8) K/mm3 Eos # (0.0-0.4) K/mm3 Baso # (0.0-0.1) K/mm3 Seg Neutrophils % (40.0-70.0) % Seg Neutrophils # (1.8-7.7) K/mm3 Sodium (137-145) mmol/L Potassium (3.6-5.0) mmol/L Chloride (98-107) mmol/L Carbon Dioxide (22-30) mmol/L Anion Gap mmol/L BUN (7-17) mg/dL Creatinine (0.7-1.2) mg/dL Estimated GFR ml/min BUN/Creatinine Ratio % Glucose (65-100) mg/dL Calcium (8.4-10.2) mg/dL Total Bilirubin (0.1-1.2) mg/dL AST (5-40) units/L ALT (7-56) units/L Alkaline Phosphatase (35-129) units/L Total Protein (6.3-8.2) g/dL Albumin (3.9-5) g/dL Albumin/Globulin Ratio % Lipase 18 (13-60) units/L HCG, Qual (Negative) Vital Signs 02/23/19 06:52 Temperature 98.4 F Pulse Rate 85 Respiratory 18 Rate Blood Pressure 162/84 O2 Sat by Pulse 100 Oximetry Pt has refused to give urine; stating she could not urinate. She then urinated in her clothing. Mediated with tylenol and GI cocktail. 1L NS and IV zofran- no vomiting/gagging and taking po labs noted Discussed findings of previous work ups with pt and discussed GI MD. She is upset because she wants IV pain medication "that no one will give her." Pt mad, pulled her IV line, went to nurses station asked for ice and left the ER - ambulatory and in NAD. Refused to sign AMA. - Differential Diagnosis ro preg/uti/choley. /gastritis Critical care attestation.: If time is entered above; I have spent that time in minutes in the direct care of this critically ill patient, excluding procedure time. ED Disposition Clinical Impression: Acute generalized abdominal pain Disposition: DC-07 LEFT AGAINST MED ADVICE Is pt being admited?: No Does the pt Need Aspirin: No Condition: Stable Time of Disposition: 08:45
[2019-02-23] MEDS ORDERED: FAMOTIDINE 20 MG TAB PO ONE (07:49)
[2019-02-23] MEDS ORDERED: LIDOCAINE VISCOUS 2% 15 ML ORAL LIQD PO ONE (07:49)
[2019-02-23] MEDS ORDERED: ALUM-MAG HYDROXIDE-SIMETHICONE 200-200-20MG/5ML ORAL LIQD 30 ML PO ONE (07:49)
== END 2019-02-23 08:45 | disposition left against medical advice (07) ==
LOC: ED 06:44
DX: R10.84 Generalized abdominal pain (principal); I10 Essential (primary) hypertension; F12.10 Cannabis abuse, uncomplicated; Z91.040 Latex allergy status
CPT/HCPCS: 36415; 80053; 83690; 84703; 85025; 96361; 96374; 99283; J2405; J7030

== ENCOUNTER 2020-05-17 04:01 | Emergency (ER) | payer SELFPAY ==
[2020-05-17] MEDS ORDERED: levETIRAcetam 1000 MG/NS 0.75% 1,000 MG/100 ML BAG IV ONE (04:07)
--- NOTE | 2020-05-17 04:35 | Event Note ---
Date: 05/17/20 The patient was evaluated in the emergency department for symptoms described in the history of present illness. He/she was evaluated in the context of the global COVID-19 pandemic, which necessitated consideration that the patient might be at risk for infection with the virus that causes COVID-19. Institutional protocols and algorithms that pertain to the evaluation of patients at risk for COVID-19 are in a state of rapid change based on information released by regulatory bodies including the CDC and federal and state organizations. These policies and algorithms were followed during the patient's care in the emergency department. Please note that these policies, procedures and recommendations changed on a rapid basis. Medical screening examination: 24-year-old female with reported history of seizure disorder, noncompliant with Keppra, who was consuming alcohol today, as per verbal report from EMS to nursing staff, had some focal nontraumatic ocular movements, may have had a generalized tonic-clonic seizure in the ambulance, and EMS gave intranasal Ativan in the field. Patient postictal, sleepy, breathing spontaneously, protecting her airway. Nursing team and EMS quite certain that there is no history of antecedent trauma. Place patient on environmental monitoring specialist, supportive care, obtain appropriate laboratory studies, EKG, load with Keppra, reassess.
[2020-05-17 05:12] LABS: Hematocrit 34.7 % (30.3-42.9); Hemoglobin 11.2 gm/dl (10.1-14.3)
[2020-05-17 05:21] LABS: INR 1.06 (0.87-1.13)
[2020-05-17 05:29] LABS: Blood Urea Nitrogen 13 mg/dL (7-17); Calcium 9.2 mg/dL (8.4-10.2); Hemolysis Index 0
[2020-05-17 05:30] LABS: BUN/Creatinine Ratio 22
[2020-05-17] MEDS ORDERED: ONDANSETRON 4 MG/2 ML INJ ONE ×2 (05:51→14:16)
[2020-05-17] MEDS ORDERED: ONDANSETRON 4 MG/2 ML INJ IV ONE (05:55)
[2020-05-17] MEDS ORDERED: SODIUM CHLORIDE 0.9% 1000 ML 1,000 ML IV ONE (07:03)
[2020-05-17] MEDS ORDERED: LORazepam 2 MG/ML VIAL IV ONE (07:49)
[2020-05-17 08:07] VITALS: BP 126/82
[2020-05-17 08:26] LABS: Bilirubin,Urine NEG (Negative); Blood,Urine NEG (Negative); Color,Urine Yellow (Yellow); Mucus,Urine FEW /HPF; Urobilinogen,Urine < 2.0 mg/dL (<2.0)
[2020-05-17 08:37] LABS: Benzodiazepines Screen,Urine Negative; Cocaine Screen,Urine Negative; Methadone Screen,Urine Negative; Opiate Screen,Urine Negative
--- NOTE | 2020-05-17 08:53 | Cat Scan Report ---
CT HEAD WITHOUT CONTRAST HISTORY: MAIN COMPARISON: None TECHNIQUE: CT imaging of the head was performed in the axial, sagittal, and coronal projections and bone algori thm in axial projection in the soft tissue algorithm. All CT scans at this location are performed using CT dose reduction for ALARA by means of automated e xposure control. CONTRAST: None. FINDINGS: Cerebral and Cerebellar Hemispheres: No evidence of mass or mass effect. No midline shift. No acute hemorrhage. No acute cortical infarction. No extra-axial fluid collection. Ventricles: Normal in size and configuration for age. Osseous Structures: No significant abnormality. Visualized Paranasal Sinuses: No significant abnormality. Additional Findings: None IMPRESSION: 1. No acute intracranial abnormality. NOTE: Acute infarct may not be visible by noncontrast CT. Signer Name: Michael Mix MD Signed: 05/17/2020 8:48 AM Workstation Name: [id number]
[2020-05-17 09:01] LABS: Amphetamine Screen,Urine PRESUMPTIVE POSITIVE; Cannabinoid Screen,Urine PRESUMPTIVE POSITIVE
--- NOTE | 2020-05-17 11:36 | Emergency Department Report ---
ED General Adult HPI - General Chief complaint: Seizure Stated complaint: SEIZURES Time Seen by Provider: 05/17/20 06:34 Source: EMS Mode of arrival: Stretcher Limitations: Other - History of Present Illness Initial comments: This is a 24-year-old female with history of seizure disorder said to be noncompliant with her Keppra. She arrived before I came and had a screening note: Medical screening examination: 24-year-old female with reported history of seizure disorder, noncompliant with Keppra, who was consuming alcohol today, as per verbal report from EMS to nursing staff, had some focal nontraumatic ocular movements, may have had a generalized tonic-clonic seizure in the ambulance, and EMS gave intranasal Ativan in the field. I am told by the night nurse that her "seizures" were focal in nature consisting of eye blinking and facial movements. Whether this represented seizure activity is uncertain. The patient is altered upon my arrival and lethargic. Apparently she was given 2 mg of Ativan intranasally by EMS. She is not providing any historical information. Severity scale (0 -10): 0 - Related Data Previous Rx's Medication Instructions Recorded Last Taken Type Amoxicillin/Potassium Clav 1 each PO BID #16 tablet 05/09/18 Unknown Rx [Augmentin 875-125 Tablet] Omeprazole 40 mg PO QDAY #30 capsule. 06/25/18 Unknown Rx Ondansetron [Zofran Odt] 4 mg PO Q8HR #12 tab.rapdis 06/25/18 Unknown Rx Sucralfate [Carafate] 1 gm PO Q6HR #12 tablet 06/25/18 Unknown Rx Allergies Allergy/AdvReac Type Severity Reaction Status Date / Time latex Allergy Severe Rash Verified 06/25/18 11:16 ED Review of Systems ROS: Stated complaint: SEIZURES Other details as noted in HPI Comment: Unobtainable due to pts medical conditions ED Past Medical Hx - Past Medical History Hx Hypertension: Yes Hx CVA: No Hx Heart Attack/AMI: No Hx Congestive Heart Failure: No Hx Diabetes: No Hx Deep Vein Thrombosis: No Hx GERD: Yes Hx Liver Disease: No Hx Renal Disease: No Hx Sickle Cell Disease: No Hx Arthritis: Yes Hx Headaches / Migraines: No Hx Seizures: Yes Hx Kidney Stones: No Hx Psychiatric Treatment: No Hx Asthma: Yes Hx COPD: No Hx HIV: No Additional medical history: SCOLIOSIS//preclampsia - Social History Smoking Status: Never Smoker - Medications Home Medications: Home Medications Medication Instructions Recorded Confirmed Last Taken Type Amoxicillin/Potassium Clav 1 each PO BID #16 tablet 05/09/18 Unknown Rx [Augmentin 875-125 Tablet] Omeprazole 40 mg PO QDAY #30 capsule. 06/25/18 Unknown Rx Ondansetron [Zofran Odt] 4 mg PO Q8HR #12 tab.rapdis 06/25/18 Unknown Rx Sucralfate [Carafate] 1 gm PO Q6HR #12 tablet 06/25/18 Unknown Rx ED Physical Exam - General Limitations: Altered Mental Status General appearance: in no apparent distress, lethargic - Head Head exam: Present: atraumatic, normocephalic - Eye Eye exam: Present: normal appearance, PERRL, EOMI. Absent: scleral icterus Pupils: Present: miosis (Somewhat but not pinpoint) - ENT ENT exam: Present: mucous membranes dry - Neck Neck exam: Present: normal inspection. Absent: meningismus - Respiratory Respiratory exam: Present: normal lung sounds bilaterally. Absent: respiratory distress - Cardiovascular Cardiovascular Exam: Present: regular rate, normal rhythm. Absent: systolic mu rmur, diastolic murmur, rubs, gallop - GI/Abdominal GI/Abdominal exam: Present: soft, normal bowel sounds. Absent: distended, tenderness, guarding, rebound - Extremities Exam Extremities exam: Present: normal inspection - Back Exam Back exam: Present: normal inspection (Limited) - Neurological Exam Neurological exam: Present: altered (Nonfocal exam) - Psychiatric Psychiatric exam: Present: flat affect - Skin Skin exam: Present: warm, dry, intact, normal color. Absent: rash ED Course Vital Signs 05/17/20 05/17/20 05/17/20 04:10 05:25 07:40 Temperature 97.1 F L 98.8 F Pulse Rate 96 H 97 H 68 Respiratory 12 102 H 18 Rate Blood Pressure 140/89 Blood Pressure 168/123 163/124 [Right] O2 Sat by Pulse 97 100 Oximetry 05/17/20 08:06 Temperature Pulse Rate 86 Respiratory Rate Blood Pressure 126/82 Blood Pressure [Right] O2 Sat by Pulse Oximetry - Reevaluation(s) Reevaluation #1: CT was deemed to be appropriate. It showed no acute process. The patient was given IV fluid. She required additional Ativan to facilitate medical evaluation. She is observed waiting on improvement of her mental status. 05/17/20 11:35 Reevaluation #2: Patient is reasonably awake and neurologically intact. She will be prepared for discharge. Nurse has communicated with her significant other for pickup. 05/17/20 14:46 ED Medical Decision Making - Lab Data Result diagrams: 05/17/20 04:45 05/17/20 04:45 Laboratory Results - last 24 hr 05/17/20 05/17/20 05/17/20 04:45 04:45 04:45 Hgb 11.2 Hct 34.7 Plt Count 370 PT 13.7 INR 1.06 Sodium 140 Potassium 4.1 Chloride 101.9 Carbon Dioxide 20 L Anion Gap 22 BUN 13 Creatinine 0.6 Estimated GFR > 60 BUN/Creatinine Ratio 22 Glucose 101 H Calcium 9.2 Magnesium 2.20 Total Creatine Kinase 139 H HCG, Quant Urine Color Urine Turbidity Urine pH Ur Specific Garrett Urine Protein Urine Glucose (UA) Urine Ketones Urine Blood Urine Nitrite Urine Bilirubin Urine Urobilinogen Ur Leukocyte Esterase Urine WBC (Auto) Urine RBC (Auto) U Epithel Cells (Auto) Urine Mucus Urine Opiates Screen Urine Methadone Screen Ur Barbiturates Screen Ur Phencyclidine Scrn Ur Amphetamines Screen U Benzodiazepines Scrn Urine Cocaine Screen U Marijuana (THC) Screen Drugs of Abuse Note Plasma/Serum Alcohol 05/17/20 05/17/20 05/17/20 04:45 04:45 08:05 Hgb Hct Plt Count PT INR Sodium Potassium Chloride Carbon Dioxide Anion Gap BUN Creatinine Estimated GFR BUN/Creatinine Ratio Glucose Calcium Magnesium Total Creatine Kinase HCG, Quant 0.779 Urine Color Yellow Urine Turbidity Clear Urine pH 7.0 Ur Specific Garrett 1.021 Urine Protein 30 mg/dl Urine Glucose (UA) Neg Urine Ketones 20 Urine Blood Neg Urine Nitrite Neg Urine Bilirubin Neg Urine Urobilinogen < 2.0 Ur Leukocyte Esterase Sm Urine WBC (Auto) 5.0 Urine RBC (Auto) 2.0 U Epithel Cells (Auto) 9.0 Urine Mucus Few Urine Opiates Screen Urine Methadone Screen Ur Barbiturates Screen Ur Phencyclidine Scrn Ur Amphetamines Screen U Benzodiazepines Scrn Urine Cocaine Screen U Marijuana (THC) Screen Drugs of Abuse Note Plasma/Serum Alcohol 0.02 05/17/20 05/17/20 08:05 08:18 Hgb Hct Plt Count PT INR Sodium Potassium Chloride Carbon Dioxide Anion Gap BUN Creatinine Estimated GFR BUN/Creatinine Ratio Glucose Calcium Magnesium Total Creatine Kinase HCG, Quant Urine Color Urine Turbidity Urine pH Ur Specific Garrett Urine Protein Urine Glucose (UA) Urine Ketones Urine Blood Urine Nitrite Urine Bilirubin Urine Urobilinogen Ur Leukocyte Esterase Urine WBC (Auto) Urine RBC (Auto) U Epithel Cells (Auto) Urine Mucus Urine Opiates Screen Negative Urine Methadone Screen Negative Ur Barbiturates Screen Negative Ur Phencyclidine Scrn Negative Ur Amphetamines Screen Presumptive positive U Benzodiazepines Scrn Negative Urine Cocaine Screen Negative U Marijuana (THC) Screen Presumptive positive Drugs of Abuse Note Disclamer Plasma/Serum Alcohol < 0.01 - EKG Data -: EKG Interpreted by Me EKG shows normal: sinus rhythm, axis, intervals, QRS complexes, ST-T waves Rate: tachycardia - EKG Data Interpretation: no acute changes - Radiology Data CT head no acute process Critical care attestation.: If time is entered above; I have spent that time in minutes in the direct care of this critically ill patient, excluding procedure time. ED Disposition Clinical Impression: Amphetamine abuse, Seizure disorder Altered mental status Qualifiers: Altered mental status type: delirium Qualified Code(s): R41.0 - Disorientation, unspecified Disposition: DC-01 TO HOME OR SELFCARE Is pt being admited?: No Does the pt Need Aspirin: No Condition: Stable Instructions: Amphetamines Use Disorder Additional Instructions: Return any acute change or problem. Obviously avoid substance abuse. Do not drive. Follow-up with primary care or [facility]. Referrals: AUSTYN HEMPHILL MD [Primary Care Provider] - 3-5 Days [facility] [Provider Group] - 2-3 Days Time of Disposition: 14:47
== END 2020-05-17 15:51 | disposition home or self-care (01) ==
LOC: ED 04:01
DX: F15.10 Other stimulant abuse, uncomplicated (principal); G40.909 Epilepsy, unspecified, not intractable, without status epilepticus; R41.82 Altered mental status, unspecified; I10 Essential (primary) hypertension; K21.9 Gastro-esophageal reflux disease without esophagitis; M19.90 Unspecified osteoarthritis, unspecified site; J45.909 Unspecified asthma, uncomplicated; Z79.899 Other long term (current) drug therapy; Z91.040 Latex allergy status
CPT/HCPCS: 36415; 70450; 80048; 80307; 81001; 82550; 82962; 83735; 84702; 85014; 85018; 85049; 85610; 93005; 96361; 96374; 96375; 99284; J2060; J2405; J7030; 80320; G0480

== ENCOUNTER 2020-05-18 07:16 | Emergency (ER) | payer SELFPAY ==
--- NOTE | 2020-05-18 07:40 | Emergency Department Report ---
ED General Adult HPI - General Stated complaint: AMS Time Seen by Provider: 05/18/20 07:35 - History of Present Illness Initial comments: This is a 24-year-old female with a long history of methamphetamine abuse. She has been admitted to this facility for example and 2018 with the following diagnoses to include methamphetamine abuse: Patient Problems (1) Acute pyelonephritis Current Visit: Yes Status: Acute Plan to address problem: IV Ceftriaxone for now (2) Anemia Current Visit: No Status: Chronic Qualifiers: Anemia type: iron deficiency Plan to address problem: Chronic sec to Iron def (3) HTN (hypertension) Current Visit: Yes Status: Chronic Qualifiers: Hypertension type: essential hypertension Qualified Code(s): I10 - Essential (primary) hypertension Plan to address problem: Cont labetolol (4) GERD (gastroesophageal reflux disease) Current Visit: Yes Status: Chronic Qualifiers: Esophagitis presence: without esophagitis Qualified Code(s): K21.9 - Gastro-esophageal reflux disease without esophagitis Plan to address problem: Cont ppi's /H2 blockers (5) Hypokalemia Current Visit: Yes Status: Acute Plan to address problem: Cont potassium (6) Polysubstance abuse Current Visit: Yes Status: Acute Plan to address problem: Patient counselled She was seen by myself yesterday, her presentation was consistent with toxic encephalopathy secondary to methamphetamine abuse. She was observed for quite some time and discharged in a fully ambulatory condition oriented and status picked up by her boyfriend. Today again she returns with "twitching movements". The paramedics stated that "this is not a seizure". Her presentation is very similar to yesterday when she had a CT exam and was medically cleared. Patient later complained of vomiting and vague abdominal discomfort. She was agitated and difficult to get a history from - Related Data Previous Rx's Medication Instructions Recorded Last Taken Type Amoxicillin/Potassium Clav 1 each PO BID #16 tablet 05/09/18 Unknown Rx [Augmentin 875-125 Tablet] Omeprazole 40 mg PO QDAY #30 capsule. 06/25/18 Unknown Rx Ondansetron [Zofran Odt] 4 mg PO Q8HR #12 tab.rapdis 06/25/18 Unknown Rx Sucralfate [Carafate] 1 gm PO Q6HR #12 tablet 06/25/18 Unknown Rx Allergies Allergy/AdvReac Type Severity Reaction Status Date / Time latex Allergy Severe Rash Verified 06/25/18 11:16 ED Review of Systems ROS: Stated complaint: AMS Other details as noted in HPI Comment: Unobtainable due to pts medical conditions ED Past Medical Hx - Past Medical History Hx Hypertension: Yes Hx CVA: No Hx Heart Attack/AMI: No Hx Congestive Heart Failure: No Hx Diabetes: No Hx Deep Vein Thrombosis: No Hx GERD: Yes Hx Liver Disease: No Hx Renal Disease: No Hx Sickle Cell Disease: No Hx Arthritis: Yes Hx Headaches / Migraines: No Hx Seizures: Yes Hx Kidney Stones: No Hx Psychiatric Treatment: No Hx Asthma: Yes Hx COPD: No Hx HIV: No Additional medical history: SCOLIOSIS//preclampsia - Social History Smoking Status: Never Smoker Substance Use Type: Methamphetamines - Medications Home Medications: Home Medications Medication Instructions Recorded Confirmed Last Taken Type Amoxicillin/Potassium Clav 1 each PO BID #16 tablet 05/09/18 Unknown Rx [Augmentin 875-125 Tablet] Omeprazole 40 mg PO QDAY #30 capsule. 06/25/18 Unknown Rx Ondansetron [Zofran Odt] 4 mg PO Q8HR #12 tab.rapdis 06/25/18 Unknown Rx Sucralfate [Carafate] 1 gm PO Q6HR #12 tablet 06/25/18 Unknown Rx ED Physical Exam - General Limitations: Altered Mental Status General appearance: other (Agitated) - Head Head exam: Present: atraumatic, normocephalic - Eye Eye exam: Present: normal appearance. Absent: scleral icterus - ENT ENT exam: Present: mucous membranes moist - Neck Neck exam: Present: normal inspection - Respiratory Respiratory exam: Present: normal lung sounds bilaterally. Absent: respiratory distress - Cardiovascular Cardiovascular Exam: Present: regular rate, normal rhythm. Absent: systolic murmur, diastolic murmur, rubs, gallop - GI/Abdominal GI/Abdominal exam: Present: soft, normal bowel sounds. Absent: distended, tenderness, guarding, rebound, rigid - Extremities Exam Extremities exam: Present: normal inspection - Back Exam Back exam: Present: normal inspection - Neurological Exam Neurological exam: Present: alert, oriented X3 - Psychiatric Psychiatric exam: Present: agitated, flat affect - Skin Skin exam: Present: warm, dry, intact, normal color. Absent: rash ED Course Vital Signs 12/05/18/20 05/18/20 07:57 13:13 15:17 Temperature 98.9 F Pulse Rate 120 H 80 Respiratory 18 Rate Blood Pressure 117/79 169/114 Blood Pressure 165/95 [Left] O2 Sat by Pulse 99 Oximetry - Reevaluation(s) Reevaluation #1: Patient was given IV fluids. She had a slightly elevated lactic acid level which was repeated and found to be within normal range. A CT of her abdomen was normal except for bilateral ovarian cysts. She was deemed appropriate for outpatient management. She never would provide a urinalysis nor would she allow straight cath. Urinalysis yesterday was unremarkable. Her urine tox screen was positive for marijuana and amphetamine. 05/18/20 14:43 Reevaluation #2: Patient was agitated and required Haldol and Benadryl. Her blood pressure has been somewhat labile. I am going to give her a small dose of labetalol now. Her CT work-up was negative. She is medically clear for discharge. Due to the patient's repeated emergency department repeated emergency department visits, with delirium and amphetamine abuse she will be kept pending psychiatric evaluation. She is placed on a mental health hold. 05/18/20 14:51 05/18/20 14:57 I am not going to 1013 the patient at this juncture. She very possibly does have a toxic delirium secondary to substance abuse. She is pending mental health evaluation. ED Medical Decision Making - Lab Data Result diagrams: 05/18/20 08:05 05/18/20 08:05 Laboratory Results - last 24 hr 05/18/20 05/18/20 05/18/20 08:05 08:05 08:05 WBC 12.2 H RBC 4.43 Hgb 11.1 Hct 33.6 MCV 76 L MCH 25 L MCHC 33 RDW 18.1 H Plt Count 416 Lymph % (Auto) 10.8 L [place] % (Auto) 4.9 Eos % (Auto) 0.1 Baso % (Auto) 0.1 Lymph # (Auto) 1.3 [place] # (Auto) 0.6 Eos # (Auto) 0.0 Baso # (Auto) 0.0 Seg Neutrophils % 84.1 H Seg Neutrophils # 10.3 H PT 13.2 INR 1.01 APTT 24.8 Sodium 139 Potassium 3.7 Chloride 99.8 Carbon Dioxide 25 Anion Gap 18 BUN 22 H Creatinine 0.8 Estimated GFR > 60 BUN/Creatinine Ratio 28 Glucose 131 H Lactic Acid Calcium 9.9 Magnesium 2.50 H Total Bilirubin 0.70 Direct Bilirubin < 0.2 Indirect Bilirubin 0.5 AST 25 ALT 13 Alkaline Phosphatase 64 Total Creatine Kinase 128 CK-MB (CK-2) 1.4 CK-MB (CK-2) Rel Index 1.0 Troponin T < 0.010 NT-Pro-B Natriuret Pep 289.3 Total Protein 9.0 H Albumin 4.7 Albumin/Globulin Ratio 1.1 Lipase 13 HCG, Quant Salicylates Plasma/Serum Alcohol 05/18/20 05/18/20 05/18/20 08:05 08:05 08:05 WBC RBC Hgb Hct MCV MCH MCHC RDW Plt Count Lymph % (Auto) [place] % (Auto) Eos % (Auto) Baso % (Auto) Lymph # (Auto) [place] # (Auto) Eos # (Auto) Baso # (Auto) Seg Neutrophils % Seg Neutrophils # PT INR APTT Sodium Potassium Chloride Carbon Dioxide Anion Gap BUN Creatinine Estimated GFR BUN/Creatinine Ratio Glucose Lactic Acid 2.20 H* Calcium Magnesium Total Bilirubin Direct Bilirubin Indirect Bilirubin AST ALT Alkaline Phosphatase Total Creatine Kinase CK-MB (CK-2) CK-MB (CK-2) Rel Index Troponin T NT-Pro-B Natriuret Pep Total Protein Albumin Albumin/Globulin Ratio Lipase HCG, Quant Salicylates < 0.3 L Plasma/Serum Alcohol < 0.01 05/18/20 05/18/20 08:05 14:07 WBC RBC Hgb Hct MCV MCH MCHC RDW Plt Count Lymph % (Auto) [place] % (Auto) Eos % (Auto) Baso % (Auto) Lymph # (Auto) [place] # (Auto) Eos # (Auto) Baso # (Auto) Seg Neutrophils % Seg Neutrophils # PT INR APTT Sodium Potassium Chloride Carbon Dioxide Anion Gap BUN Creatinine Estimated GFR BUN/Creatinine Ratio Glucose Lactic Acid 0.90 Calcium Magnesium Total Bilirubin Direct Bilirubin Indirect Bilirubin AST ALT Alkaline Phosphatase Total Creatine Kinase CK-MB (CK-2) CK-MB (CK-2) Rel Index Troponin T NT-Pro-B Natriuret Pep Total Protein Albumin Albumin/Globulin Ratio Lipase HCG, Quant 1.08 Salicylates Plasma/Serum Alcohol Critical care attestation.: If time is entered above; I have spent that time in minutes in the direct care of this critically ill patient, excluding procedure time. ED Disposition Clinical Impression: Amphetamine abuse, Delirium, Medical clearance for psychiatric admission Hypertension Qualifiers: Hypertension type: unspecified Qualified Code(s): I10 - Essential (primary) hypertension Disposition: DC/TX-65 [facility] HOS[facility]/PSY UNIT Is pt being admited?: No Does the pt Need Aspirin: No Condition: Stable Instructions: Hypertension (ED) Referrals: PRIMARY CARE, [Primary Care Provider] - 3-5 Days
[2020-05-18] MEDS ORDERED: SODIUM CHLORIDE 0.9% 1000 ML 1,000 ML IV ONE ×2 (07:43→13:08)
[2020-05-18] MEDS ORDERED: ONDANSETRON 4 MG/2 ML INJ IV ONE (07:43)
[2020-05-18] MEDS ORDERED: LORazepam 2 MG/ML VIAL IV ONE (07:43)
[2020-05-18 08:48] LABS: Basophils % (Auto) 0.1 % (0.0-1.8); Eosinophils % (Auto) 0.1 % (0.0-4.3); Hematocrit 33.6 % (30.3-42.9); Hemoglobin 11.1 gm/dl (10.1-14.3); Lymphocytes # (Auto) 1.3 K/mm3 (1.2-5.4); Lymphocytes % (Auto) 10.8 % (13.4-35.0); Mean Corpuscular HGB Conc 33 % (30-34); Mean Corpuscular Volume 76 fl (79-97); Monocytes # (Auto) 0.6 K/mm3 (0.0-0.8); Monocytes % (Auto) 4.9 % (0.0-7.3); Platelet Count 416 K/mm3 (140-440); Red Blood Count 4.43 M/mm3 (3.65-5.03); Red Cell Distribution Width 18.1 % (13.2-15.2)
[2020-05-18] MEDS ORDERED: HALOPERIDOL LACTATE 5 MG/1 ML INJ IV ONE (08:52)
[2020-05-18] MEDS ORDERED: diphenhydrAMINE 50 MG/ML VIAL IV ONE (08:52)
[2020-05-18 08:58] LABS: INR 1.01 (0.87-1.13)
[2020-05-18 08:59] LABS: Partial Thromboplastin Time 24.8 Sec. (24.2-36.6)
[2020-05-18 09:40] LABS: Alanine Aminotransferase 13 units/L (7-56); Albumin 4.7 g/dL (3.9-5); BUN/Creatinine Ratio 28; Blood Urea Nitrogen 22 mg/dL (7-17); Calcium 9.9 mg/dL (8.4-10.2); Creatine Kinase MB 1.4 ng/mL (0.0-4.0); Hemolysis Index 4
[2020-05-18 09:41] LABS: Bilirubin,Direct < 0.2 mg/dL (0-0.2)
[2020-05-18] MEDS ORDERED: LORazepam 2 MG/ML VIAL ONE (09:56)
--- NOTE | 2020-05-18 11:20 | XRay Report ---
CHEST 1 VIEW 10:51 AM INDICATION / CLINICAL INFORMATION: Hypertension. COMPARISON: None available. FINDINGS: SUPPORT DEVICES: None. HEART / MEDIASTINUM: The heart size and pulmonary vasculature are normal. The aorta is normal in sabra maggy. LUNGS / PLEURA: No significant pulmonary or pleural abnormality. No pneumothorax. ADDITIONAL FINDINGS: There is mild thoracolumbar scoliosis. IMPRESSION: No acute findings. Signer Name: Tank Cole MD Signed: 05/18/2020 11:16 AM Workstation Name: [id number]
--- NOTE | 2020-05-18 14:23 | Cat Scan Report ---
CT ABDOMEN AND PELVIS WITH CONTRAST INDICATION / CLINICAL INFORMATION: MAIN. TECHNIQUE: Axial CT images were obtained through the abdomen and pelvis after 100 cc Omnipaque 300 milligrams pe rcent IV contrast. All CT scans at this location are performed using CT dose reduction for ALARA by means of automated exposure control. COMPARISON: None available. FINDINGS: Arm artifact overlying abdomen and chest LOWER CHEST: No significant abnormality. LIVER: No significant abnormality. GALLBLADDER: No significant abnormality. BILE DUCTS: No significant abnormality. PANCREAS: No significant abnormality. SPLEEN: No significant abnormality. ADRENALS: No significant abnormality. RIGHT KIDNEY and URETER: No significant abnormality. LEFT KIDNEY and URETER: No significant abnormality. STOMACH and SMALL BOWEL: No significant abnormality. COLON: No significant abnormality. APPENDIX: No significant abnormality. PERITONEUM: No free fluid. No free air. No fluid collection. LYMPH NODES: No significant adenopathy. AORTA and ARTERIES: No significant abnormality. IVC and VEINS: No significant abnormality. URINARY BLADDER: No significant abnormality. REPRODUCTIVE ORGANS: Bilateral ovarian cyst ADDITIONAL FINDINGS: None. SKELETAL SYSTEM: No significant abnormality. IMPRESSION: 1. Bilateral ovarian cyst Signer Name: Michael Mix MD Signed: 05/18/2020 2:19 PM Workstation Name: [id number]
[2020-05-18] MEDS ORDERED: ALUM-MAG HYDROXIDE-SIMETHICONE 200-200-20MG/5ML ORAL LIQD 30 ML PO PRN (14:55)
[2020-05-18] MEDS ORDERED: MAGNESIUM HYDROXIDE (MOM) ORAL LIQD UDC PO PRN (14:55)
[2020-05-18] MEDS ORDERED: ACETAMINOPHEN 325 MG TAB PO PRN (14:55)
[2020-05-18 22:54] LABS: Bacteria,Urine 1+ /HPF (Negative); Bilirubin,Urine NEG (Negative); Blood,Urine NEG (Negative); Color,Urine Yellow (Yellow); Mucus,Urine 1+ /HPF; Protein,Urine <15 mg/dL mg/dL (Negative); Urobilinogen,Urine < 2.0 mg/dL (<2.0)
[2020-05-18 22:58] LABS: Amphetamine Screen,Urine PRESUMPTIVE POSITIVE; Benzodiazepines Screen,Urine PRESUMPTIVE NEGATIVE; Cannabinoid Screen,Urine PRESUMPTIVE POSITIVE; Cocaine Screen,Urine PRESUMPTIVE NEGATIVE; Methadone Screen,Urine PRESUMPTIVE NEGATIVE; Opiate Screen,Urine PRESUMPTIVE NEGATIVE
[2020-05-19] MEDS ORDERED: cloNIDine 0.2 MG TAB PO ONE (01:07)
[2020-05-19 04:33] VITALS: BP 114/56
== END 2020-05-19 04:05 ==
LOC: ED 07:16
DX: I10 Essential (primary) hypertension (principal); F15.10 Other stimulant abuse, uncomplicated; R41.0 Disorientation, unspecified; M19.90 Unspecified osteoarthritis, unspecified site; K21.9 Gastro-esophageal reflux disease without esophagitis; J45.909 Unspecified asthma, uncomplicated; Z91.040 Latex allergy status; Z00.8 Encounter for other general examination; Z86.69 Personal history of other diseases of the nervous system and sense organs; Z79.899 Other long term (current) drug therapy
CPT/HCPCS: 36415; 71045; 74177; 80048; 80076; 80307; 81001; 82140; 82550; 82553; 83690; 83735; 83880; 84484; 84702; 85025; 85610; 85730; 87040; 87086; 93005; 96361; 96374; 96375; 99285; J1200; J1630; J2060; J2405; J7030; Q9967; 80320; G0480

== ENCOUNTER 2020-05-19 05:15 | Emergency (ER) | payer SELFPAY ==
[2020-05-19 06:11] VITALS: BP 108/67
--- NOTE | 2020-05-19 06:53 | XRay Report ---
CHEST 1 VIEW [id number] INDICATION / CLINICAL INFORMATION: Chest Pain COMPARISON: 05/18/2020 FINDINGS: SUPPORT DEVICES: None HEART / MEDIASTINUM: No significant abnormality. LUNGS / PLEURA: No significant pulmonary or pleural abnormality. No pneumothorax. ADDITIONAL FINDINGS: No significant additional findings. IMPRESSION: No significant acute abnormality Signer Name: Hayes Bobby MD Signed: 05/19/2020 6:48 AM Workstation Name: [id number]
== END 2020-05-19 06:10 | disposition left against medical advice (07) ==
LOC: ED 05:15
DX: R07.89 Other chest pain (principal); R42 Dizziness and giddiness; Z53.21 Procedure and treatment not carried out due to patient leaving prior to being seen by health care provider
CPT/HCPCS: 71045; 93005